=== PATIENT | male | born 1950 | race Caucasian/White ===

== ENCOUNTER 2016-03-26 09:59 | Observation (INO) | payer MEDICARE, OTHER ==
[~2016-03-26] VITALS: Ht 185.4 cm; Wt 103.6 kg
[~2016-03-26 09:59] MED LIST: ASPI81TA3 PO; GLUC-123 PO; LOSA50TA37 PO
[2016-03-26 10:17] VITALS: BP 140/86; PULSE 72; RESP 12; O2SAT 99
[2016-03-26 10:43] LABS: BASOPHILS % (AUTO) 0.2 % (0-3); EOSINOPHILS % (AUTO) 0.3 % (0-5); MONOCYTES % (AUTO) 12.7 % (4-12); Mean Corpuscular Hemoglobin 28.2 pg (27.0-35.0); Mean Corpuscular Volume 83.5 fL (81-100); Platelet Count 207 bil/L (150-400)
--- NOTE | 2016-03-26 11:05 | ED.REPORT ---
HPI-Back Pain 40 and Over Date of Service Mar 26, 2016 ED Provider: Dewayne Golden MD Mr. Wiggins is a 65 y/o man with history of follicular lymphoma and HTN who presents today for severe lower back pain that is mainly on the left that started 3 days ago. He describes it as a cramping. When he moves, it hurts from left to right. It started about 1 week ago but worsened on Thursday morning, and he hasn't been able to get out of bed since then. He goes to the bathroom with help from his and family members. He was brought in today by ambulance. He had treatment on Thursday with with immunoglobulin. He has chills and 5 pound weight loss over the past 1 month. He does not have numbness, tingling, weakness in his leg, bowel or bladder incontinence, or saddle anesthesia. He does not have dysuria, hematuria, melena, or hematochezia. He does not have chest pain, shortness of breath, or abdominal pain. 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 Nursing Notes Stated Complaint: BACK PAIN Chief Complaint: Back Pain or Injury Nursing Notes Reviewed: Yes Allergies: Coded Allergies: No Known Allergies (Verified Allergy, Unknown, 03/26/16) Scheduled Aspirin Chew (Aspirin Chew) 81 Mg Chew 81 MG PO DAILY Gluc/Georges-MSM#2/C/D3/Gianfranco/Born (Ilolawrrgj-Vfqbcmkwktd-DWG Tab) 1 Each Tablet 1 EACH PO BID Losartan Potassium (Losartan Potassium) 50 Mg Tablet 50 MG PO DAILY General Time Seen by MD: 10:54 Chief Complaint Back pain Hx Obtained From: Patient Sudden in Onset?: No Associated with: Denies: Chest pain, Cough Past Medical History Past Medical History lymphoma HTN Social History Alcohol Use: Denies alcohol use Drug Use: Denies drug use Review of Systems Basic Review of Systems Eyes: Vision NL, No discharge ENT: Hearing NL, No pain, No nasal congestion, No pharyngeal pain Constitutional: Reports: Chills, Denies: Fever Respiratory: Denies: Non-productive cough, Shortness of breath Cardiovascular: Denies: Chest pain GI: Denies: Abdominal pain, Diarrhea, Vomiting Male: Denies Dysuria, Denies Hematuria Musculoskeletal: Reports: Back pain, Denies: Neck pain Neurologic: Denies: Bladder dysfunction, Bowel dysfunction, Focal weakness, Numbness, Slurred speech, Vision change Physical Exam Initial Vital Signs Vital Signs (First) Date Time Temp Pulse Resp B/P Pulse Ox O2 Delivery O2 Flow Rate FiO2 03/26/16 10:17 36.0 72 12 140/86 99 Room Air Initial VS: Reviewed Head / Eyes: Atraumatic, Normocephalic ENT: Mucous membranes moist, Conjunctiva normal, No scleral icterus Neck: Supple, Non-tender, Full range of motion Extremities: No swelling, No tenderness Skin: Warm, Dry, No cyanosis Psychiatric: Mood/affect normal, Behavior normal, Normal thought content Respiratory / Chest: Breath sounds NL, Breath sounds = bilat, No respiratory distress, No rales, No rhonchi, No wheezing Cardiovascular: Heart rate NL, Regular rhythm, Heart sounds NL, No gallop, No murmurs, No rubs Abdomen: Soft, Non-tender, No guarding, No rebound, BS normoactive Muscle Spasm / ROM: Positive: Lumbar area spasm Straight Leg Raise: Positive: Strt leg raise + R 50 deg, Negative: Strt leg raise + L 60 deg Lower Extremity / Pelvis / MS: Full range of motion, Neurologic intact, Vascular intact, No edema Interpretation & Diagnostics Interpretation & Diagnostics: CT abdomen and pelvis with contrast: IMPRESSION: 1. No acute process. 2. No explanation for low back pain. Dictated by: Graciela Samayoa M.D. on 03/26/2016 at 13:38 Approved by: Graciela Samayoa M.D. on 03/26/2016 at 13:42 MRI of lumbar spine with and without contrast: IMPRESSION: 1. No acute process. No evidence of epidural hemorrhage nor abscess. No evidence of neoplasm. 2. Multilevel degenerative disc and facet disease, causing multilevel mild canal stenoses, and multilevel foraminal stenoses, worst at L3-L4, L4-L5, and L5-S1 bilaterally. Dictated by: Graciela Samayoa M.D. on 03/26/2016 at 15:02 Approved by: Graciela Samayoa M.D. on 03/26/2016 at 15:09 Lab Results Interpretation Result Diagram: 03/26/16 1039 03/26/16 1039 Test 03/26/16 10:39 03/26/16 14:31 White Blood Count 6.1th/mm3 (3.8-10.1) Red Blood Count 5.21mil/mm3 (4.40-5.80) Hemoglobin 14.7g/dL (13.8-17.2) Hematocrit 43.5% (41.0-50.0) Mean Corpuscular Volume 83.5fL (81-100) Mean Corpuscular Hemoglobin 28.2pg (27.0-35.0) Mean Corpuscular Hemoglobin Concent 33.8% (32.0-37.0) Red Cell Distribution Width 13.6% (12.3-15.4) Platelet Count 207bil/L (150-400) Neutrophils (%) (Auto) 63.0% (40-74) Lymphocytes (%) (Auto) 23.5% (14-46) Monocytes (%) (Auto) 12.7% (4-12) Eosinophils (%) (Auto) 0.3% (0-5) Basophils (%) (Auto) 0.2% (0-3) Sodium Level 136mEq/L (134-144) Potassium Level 3.6mEq/L (3.5-5.2) Chloride Level 96mEq/L (97-108) Carbon Dioxide Level 27mmol/L (18-29) Blood Urea Nitrogen 19mg/dL (8-27) Creatinine 0.63mg/dL (0.76-1.27) Estimat Glomerular Filtration Rate 136mL/min (>59) Glucose Level 97mg/dL (60-99) Calcium Level 9.3mg/dL (8.5-10.1) Total Bilirubin 0.4mg/dL (0.0-1.2) Aspartate Amino Transf (AST/SGOT) 21U/L (0-50) Alanine Aminotransferase (ALT/SGPT) 19U/L (0-44) Alkaline Phosphatase 73U/L (25-160) Total Protein 7.5g/dL (6.4-8.4) Albumin 3.6g/dL (3.4-5.0) Urine Color Yellow (YELLOW) Urine Appearance Clear (CLEAR,HAZY) Urine pH 7.0 (5.0-8.0) Urine Specific [place] 1.015 (1.003-1.035) Urine Protein Negativemg/dL (NEG,TRACE) Urine Glucose (UA) Negativemg/dL (NEGATIVE) Urine Ketones Negativemg/dL (NEGATIVE) Urine Occult Blood Negative (NEGATIVE) Urine Nitrite Negative (NEGATIVE) Urine Bilirubin Negative (NEGATIVE) Urine Urobilinogen Normalmg/dL (NORMAL) Urine Leukocyte Esterase Negative (NEGATIVE) Urine RBC 0-2/hpf (0-2) Urine WBC 0-5/hpf (0-5) Urine Epithelial Cells Occasional/hpf (NONE-MOD) Urine Crystals None seen (NONE SEEN) Urine Bacteria Few/hpf (NONE-FEW) Urine Hyaline Casts None/lpf (NONE) Urine Granular Casts None seen (NONE SEEN) Urine Waxy Casts None seen (NONE SEEN) Urine Red Blood Cell Casts None seen (NONE SEEN) Urine White Blood Cell Casts None seen (NONE SEEN) Urine Mucus Present (None Seen) Urine Trichomonas None seen (NONE SEEN) Urine Yeast None (NONE SEEN) Urinalysis Comment None Urine Culture Reflexed Not indicated Re-Eval/Medical Decision Med Decision/Clinical Course 1. low back pain -Pt is afebrile and he does not have focal neurological deficits on exam -CT abdomen and pelvis with contrast did not show any acute changes -UA is not concerning for UTI or pyleonephritis -MRI of lumbar spine shows multilevel mild canal stenoses, and multilevel foraminal stenoses, worst at L3-L4, L4-L5, and L5-S1 bilaterally. -Pt's pain persisted after 4 dose of IV Dilaudid, 1 dose of PO [place], and 1 dose of PO Flexeril -Pt's is concerned about taking him home if he is unable to ambulate on his own Re-Evaluation/Progress : Patient Status: Mild relief (of pain with IV Dilaudid and PO [place]) Re-Evaluation/Progress Note: Pt's pain relieved after third dose of IV Dilaudid and 1 PO [place]. He is able to sit up half way in bed with assistance but stops secondary to pain with flexion of torso. Consultation #1: Referral / Consult Name: Deni Montaño MD Call Returned at: 11:38 Note: Dr. Abad recommends CT abdomen and pelvis with contrast to look for recurrent disease and if that shows nothing to do an MRI of the lumbar spine. Consultation #2: Referral / Consult Name: Alpesh Sherman MD Consulted With: Hospitalist Drug Safety Coordinator: Accepts admit DDx includes but not limited to: recurrent lymphoma, metastatsis, epidural abscess, spinal mass, pyelonephritis, nephrolithiasis, herniated disck, cauda equina syndrome, osteomyelitis, osteoarthritis Discharge & Departure Impression: Primary Impression: Muscle spasm of back Additional Impressions: Spinal stenosis of lumbar region at multiple levels Intractable pain Disposition: ADMITTED TO HOSPITAL (Discussed with Dr. Sherman at 17:43, admission accepted) Referrals: Delta Mitchell MD (PCP) Other Davian Cuellar MD Attending Statement The patient was seen and examined together with Dr. Greene on 03/26/16 and I agree with the history, exam and plan as outlined in the note above. copies to: Davian Cuellar MD; Delta Mitchell MD, Marissa Rosas DO Mar 26, 2016 11:05 Dewayne Golden MD Mar 27, 2016 06:18 Davian Cuellar MD copies to: Davian Cuellar MD; Delta Mitchell MD, Marissa L DO Mar 26, 2016 11:05 Davian Cuellar MD copies to: Davian Cuellar MD; Delta Mitchell MD, Marissa L DO Mar 26, 2016 11:05
[2016-03-26] MEDS ORDERED: HYDROmorphone 0.5 mg/0.5 mL iSecure Syringe IVPUSH ONE (11:45)
[2016-03-26] MEDS ORDERED: Iohexol 240 mg/mL 10 mL Inj PO ONE (11:45)
[2016-03-26] MEDS ORDERED: Ondansetron 2 mg/mL 2 mL Inj IVPUSH ONE (11:50)
[2016-03-26] MEDS ORDERED: Iohexol 300 mg/mL 30 mL Inj PO ONE (12:05)
[2016-03-26] MEDS: HYDROmorphone 0.5 mg/0.5 mL iSecure Syringe IVPUSH PRN ×4 (12:07→18:34)
--- NOTE | 2016-03-26 13:44 | DRSVH ---
PROCEDURE: CT ABDOMEN AND PELVIS WITH CONTRAST ([id number]) INDICATIONS: new low back pain, hx of lymphoma TECHNIQUE: After the administration of oral and intravenous contrast, 5 mm thick sections acquired from the diap hragms to the symphysis. 5 mm thick coronal and sagittal reformats were performed. For radiation do se reduction, the following was used: automated exposure control, adjustment of mA and/or kV accordi ng to patient size. COMPARISON: [facility], CT, CT NECK CHEST ABD PELVIS W CON, 07/04/2015, 8:34. FINDINGS: Image quality: Excellent. ABDOMEN: Lung bases: Mild right greater than left dependent bibasilar atelectasis. Lung bases are otherwise cl ear. Heart size is normal. Solid organs: Liver and spleen are normal in size and enhancement. Gallbladder is within normal barrientos its. Biliary system is non-dilated. Pancreas enhances normally. No adrenal nodules. Kidneys are n ormal in size and enhancement, without hydronephrosis. Peritoneum and bowel: Stomach, small bowel, and colon loops are normal in caliber and wall thickness . There is diverticulosis of the descending and sigmoid colon. No evidence of acute diverticulitis. N o free fluid or air. Appendix not seen. No evidence of appendicitis. Nodes and vessels: No retroperitoneal or mesenteric adenopathy. No change in 9 mm short axis left p roximal iliac chain lymph node. Aorta and inferior vena cava are normal in caliber. Miscellaneous: No ventral hernias. PELVIS: Genitourinary: Urinary bladder is decompressed. Miscellaneous: No inguinal hernias or adenopathy. Bones: No suspicious bony lesions. Left hip arthroplasty has been performed. No vertebral body comp ression fractures. IMPRESSION: 1. No acute process. 2. No explanation for low back pain. Dictated by: Graciela Samayoa M.D. on 03/26/2016 at 13:38 Approved by: Graciela Samayoa M.D. on 03/26/2016 at 13:42
[2016-03-26] MEDS ORDERED: HYDROcodone-APAP 5-325 mg Tablet PO ONE (14:10)
[2016-03-26 14:47] LABS: APPEARANCE,URINE CLEAR (CLEAR,HAZY); COLOR,URINE YELLOW (YELLOW); OCCULT BLOOD,URINE NEGATIVE (NEGATIVE); UROBILINOGEN,URINE NORMAL (NORMAL)
--- NOTE | 2016-03-26 15:10 | DRSVH ---
PROCEDURE: MRI LUMBAR SPINE WITH AND WITHOUT CONTRAST ([id number]) INDICATIONS: new low back pain, hx of lymphoma TECHNIQUE: Noncontrast sagittal T1 spin echo and T2 fast spin echo, sagittal STIR, axial T1 and T2 fast spin ech o through the lumbar spine. In cases with scoliosis, additional coronal T2 fast spin echo may be per formed. After the administration of contrast, sagittal and axial T1 spin echo with fat saturation th rough the lumbar spine. COMPARISON: [facility], CT, CT ABD PELVIS W CON, 03/26/2016, 13:11. FINDINGS: Image quality: Excellent. Alignment and curvature: There is mild grade 1 retrolisthesis of L2 on L3 and L3 on L4. normal bony alignment. There are 5 lumbar-type vertebral bodies by CT. Marrow: Marrow is of normal overall signal. No acute vertebral body compression fractures. No susp icious marrow enhancement. There is mild reactive signal within the endplates adjacent to the T12-L1 , L1-L2, L2-L3, L3-L4, L4-L5, and L5-S1 intervertebral discs. L1, L2, and L3 hemangiomata are present . Spinal cord: Conus medullaris terminates at the mid L1 level. Visualized spinal cord demonstrates n ormal signal, without suspicious enhancement. Paraspinous soft tissues: No paravertebral masses or abnormal enhancement. L1-L2: Disc desiccation. Mild facet hypertrophy. Mild canal stenosis. Mild bilateral foraminal stenos is. L2-L3: Disc desiccation and diffuse disc bulge. Bilateral facet hypertrophy. Mild canal stenosis. Mil d bilateral foraminal stenosis. Moderate lateral recess stenosis bilaterally. L3-L4: Disc desiccation and diffuse disc bulge. Bilateral facet hypertrophy. Epidural lipomatosis. Mi ld to moderate canal stenosis. Moderate bilateral foraminal stenosis. L4-L5: Disc desiccation and diffuse disc bulge. Bilateral facet and ligamentum flavum hypertrophy. Mi ld canal stenosis. Moderate bilateral foraminal stenosis. L5-S1: Disc height loss and desiccation, as well as diffuse disc bulge/osteophyte. Bilateral facet hy pertrophy. Mild canal stenosis. Moderate bilateral foraminal stenosis. IMPRESSION: 1. No acute process. No evidence of epidural hemorrhage nor abscess. No evidence of neoplasm. 2. Multilevel degenerative disc and facet disease, causing multilevel mild canal stenoses, and multil evel foraminal stenoses, worst at L3-L4, L4-L5, and L5-S1 bilaterally. Dictated by: Graciela Samayoa M.D. on 03/26/2016 at 15:02 Approved by: Graciela Samayoa M.D. on 03/26/2016 at 15:09
[2016-03-26 16:16] VITALS: BP 132/76; PULSE 84; RESP 16; O2SAT 96
[2016-03-26] MEDS ORDERED: Alum-Mag Hydrox-Simeth 30 mL Suspension PO PRN (17:50)
[2016-03-26 17:54] VITALS: BP 140/64; PULSE 80; RESP 16; O2SAT 97
[2016-03-26] MEDS: 0.9% Sodium Chloride 1,000 ML IV SCH (18:22)
[2016-03-26 18:56] VITALS: BP 113/71; PULSE 87; RESP 18; O2SAT 97
[2016-03-26 19:42] VITALS: BP 124/77; PULSE 81; RESP 18; O2SAT 94
--- NOTE | 2016-03-26 19:50 | NUR ---
Admit Note Pt. arrived on floor at 1935. VSS. IV patent and intact. A&0x3. Pt. oriented to room. Pt. rates pain manageable at 2/10 right now. Will continue to monitor.
[2016-03-26] MEDS: HYDROcodone-APAP 5-325 mg Tablet PO PRN (20:44)
--- NOTE | 2016-03-26 22:21 | PCM.HPMED ---
Subjective Date of Service Mar 26, 2016 Primary Provider: Admitting Physician: Alpesh Sherman MD Primary Care Physician: Delta Mitchell MD Attending Physician: Alpesh Sherman MD Chief Complaint: Severe back pain History of Present Illness: 65-year-old male with follicular lymphoma, hypertension p/w intractable back pain and muscle spasm. pt was USOH until 1week ago, pt started having back spasm, difficulty of ambulation, pain continued until this AM, pt was so severe and pt noticed spasm badly, unable to walk decided to come to hospital, pain didn't radiate to legs, denied weakness, numbness on legs, no saddle anesthesia, no fecal incontinence, urinary retention. pt doesn't have chronic back pain, not taking pain med at baseline. ROS: Patient denies fever, chills, nausea, vomiting, abdominal pain, cough, sputum, constipation, diarrhea, sick contacts, recent travel in ED, VSS, pt received dilaudid, norco, zofran. Review of Systems: Pertinent positives as noted in history of present illness. All other systems were reviewed and are negative Allergies Coded Allergies: No Known Allergies (Verified Allergy, Unknown, 03/26/16) Home Medications losartan 50 mg PMH Described in history of present illness above Surgical History Hip surgery Shoulder surgery Bowel surgery as a child Family History No history of CAD Social History Hx Alcohol Use: No Hx Substance Use: No Hx Tobacco Use: No Additional Information lives with and daughter Exam Vital Signs Vital Sign - Last Date Time Temp Pulse Resp B/P Pulse Ox O2 Delivery O2 Flow Rate FiO2 03/26/16 17:54 36.7 80 16 140/64 97 Room Air Exam NAD, comfortably laying down on the bed no JVD, MMM, no LAD RRR, nl s1, s2 no mrg CTAB, no w,c S,ND,NT,normoactive BS+ warm, no edema, pulses 2/2 neuro exam: motor 5/5 throughout pulses 2/2 DP limited ROM of lumbar spines due to pain, Lab and Diagnostics Result Diagram: 03/26/16 1039 03/26/16 1039 X-Rays, CTs and MRIs PROCEDURE: MRI LUMBAR SPINE WITH AND WITHOUT CONTRAST ([id number]) INDICATIONS: new low back pain, hx of lymphoma TECHNIQUE: Noncontrast sagittal T1 spin echo and T2 fast spin echo, sagittal STIR, axial T1 and T2 fast spin echo through the lumbar spine. In cases with scoliosis, additional coronal T2 fast spin echo may be performed. After the administration of contrast, sagittal and axial T1 spin echo with fat saturation through the lumbar spine. COMPARISON: [facility], CT, CT ABD PELVIS W CON, 03/26/2016, 13:11. FINDINGS: Image quality: Excellent. Alignment and curvature: There is mild grade 1 retrolisthesis of L2 on L3 and L3 on L4. normal bony alignment. There are 5 lumbar-type vertebral bodies by CT. Marrow: Marrow is of normal overall signal. No acute vertebral body compression fractures. No suspicious marrow enhancement. There is mild reactive signal within the endplates adjacent to the T12-L1, L1-L2, L2-L3, L3-L4 , L4-L5, and L5-S1 intervertebral discs. L1, L2, and L3 hemangiomata are present. Spinal cord: Conus medullaris terminates at the mid L1 level. Visualized spinal cord demonstrates normal signal, without suspicious enhancement. Paraspinous soft tissues: No paravertebral masses or abnormal enhancement. L1-L2: Disc desiccation. Mild facet hypertrophy. Mild canal stenosis. Mild bilateral foraminal stenosis. L2-L3: Disc desiccation and diffuse disc bulge. Bilateral facet hypertrophy. Mild canal stenosis. Mild bilateral foraminal stenosis. Moderate lateral recess stenosis bilaterally. L3-L4: Disc desiccation and diffuse disc bulge. Bilateral facet hypertrophy. Epidural lipomatosis. Mild to moderate canal stenosis. Moderate bilateral foraminal stenosis. L4-L5: Disc desiccation and diffuse disc bulge. Bilateral facet and ligamentum flavum hypertrophy. Mild canal stenosis. Moderate bilateral foraminal stenosis. L5-S1: Disc height loss and desiccation, as well as diffuse disc bulge/ osteophyte. Bilateral facet hypertrophy. Mild canal stenosis. Moderate bilateral foraminal stenosis. IMPRESSION: 1. No acute process. No evidence of epidural hemorrhage nor abscess. No evidence of neoplasm. 2. Multilevel degenerative disc and facet disease, causing multilevel mild canal stenoses, and multilevel foraminal stenoses, worst at L3-L4, L4-L5, and L5 -S1 bilaterally. Dictated by: Graciela Samayoa M.D. on 03/26/2016 at 15:02 Approved by: Graciela Samayoa M.D. on 03/26/2016 at 15:09 PROCEDURE: CT ABDOMEN AND PELVIS WITH CONTRAST ([id number]) INDICATIONS: new low back pain, hx of lymphoma TECHNIQUE: After the administration of oral and intravenous contrast, 5 mm thick sections acquired from the diaphragms to the symphysis. 5 mm thick coronal and sagittal reformats were performed. For radiation dose reduction, the following was used : automated exposure control, adjustment of mA and/or kV according to patient size. COMPARISON: [facility], CT, CT NECK CHEST ABD PELVIS W CON, 2015, 8:34. FINDINGS: Image quality: Excellent. ABDOMEN: Lung bases: Mild right greater than left dependent bibasilar atelectasis. Lung bases are otherwise clear. Heart size is normal. Solid organs: Liver and spleen are normal in size and enhancement. Gallbladder is within normal limits. Biliary system is non-dilated. Pancreas enhances normally. No adrenal nodules. Kidneys are normal in size and enhancement, without hydronephrosis. Peritoneum and bowel: Stomach, small bowel, and colon loops are normal in caliber and wall thickness. There is diverticulosis of the descending and sigmoid colon. No evidence of acute diverticulitis. No free fluid or air. Appendix not seen. No evidence of appendicitis. Nodes and vessels: No retroperitoneal or mesenteric adenopathy. No change in 9 mm short axis left proximal iliac chain lymph node. Aorta and inferior vena cava are normal in caliber. Miscellaneous: No ventral hernias. PELVIS: Genitourinary: Urinary bladder is decompressed. Miscellaneous: No inguinal hernias or adenopathy. Bones: No suspicious bony lesions. Left hip arthroplasty has been performed. No vertebral body compression fractures. IMPRESSION: 1. No acute process. 2. No explanation for low back pain. Dictated by: Graciela Samayoa M.D. on 03/26/2016 at 13:38 Approved by: Graciela Samayoa M.D. on 03/26/2016 at 13:42 Assessment & Plan Acute, active Acute muscular spasm in setting of severe lumbar degenerative joint disease, causing multilevel mild canal stenoses, and multilevel foraminal stenoses, worst at L3-L4, L4-L5, and L5-S1 bilaterally.POA, CT abd MRI or L spines ruled out mass, abscess, cord compression, -admitted for mainly pain control -continue Flexeril 10 mg 3 times a day, norco 5-325 q4 prn, naproxen 500mg bid with ppi 20mg qd for short term. -PT ordered, chronic, stable HTN, resume BP med after med rec Follicular lymphoma, follow-up with Dr. Abad OP Patient is admitted under observation status with expectation that she will be discharged within 24-48 hours, dvt prophylaxis LMWH Full code diet: general Time spent 65min Alpesh Sherman MD Mar 26, 2016 18:59
[2016-03-27 00:23] VITALS: BP 153/85; PULSE 73; RESP 16; O2SAT 95
[2016-03-27] MEDS: 0.9% Sodium Chloride 1,000 ML IV SCH ×3 (03:52→23:48)
[2016-03-27 03:53] VITALS: BP 141/80; PULSE 80; RESP 18; O2SAT 94
[2016-03-27] MEDS: HYDROcodone-APAP 5-325 mg Tablet PO PRN ×3 (03:57→14:30)
[2016-03-27] MEDS: Pantoprazole 20 mg ER24 Tablet PO SCH (07:15)
[2016-03-27] MEDS ORDERED: Influenza (Adult) Vaccine 0.5 mL Syringe IM ONE (08:30)
[2016-03-27] MEDS ORDERED: Potassium Chloride 20 mEq SR Tablet PO ONE (08:55)
[2016-03-27 10:58] VITALS: BP 103/72; PULSE 101; RESP 18; O2SAT 95
--- NOTE | 2016-03-27 14:23 | NUR ---
Social Work Initial Assessment: SW met with patient at bedside to discuss discharge plan. Patient is a 65 year old male admitted under observation status on 03/26/16 for lumbar spasms, lumbar stenosis. Patient payer as Medicare. Patient has no assisted disability nor VA benefits. Patient PCP as MD Mitchell. Patient states residing in [facility] in a 2 story home with 6 -7 steps outside of home. Patient states residing with Aixa, who to provide transport and assist with needs. Patient pharmacy of choice as [facility]. Patient has no HHC, SNF, or DME history. Patient states prior to admit he was independent with needs. Patient states he drives independently. Patient states currently in the process of AD at this time. SW to assess therapy notes to ensure home discharge recommendations. Patient states not having any identified discharge needs this time. SW to follow. Home with via POV, pending clinical course and therapy eval. SW to follow. Rob COLEMAN Addendum: 03/27/16 at 1427 by LOREN MARIE Amended: Links added. Addendum: 03/27/16 at 1441 by LOREN MARIE Therapy notes reviewed and notation for recommendations for HHC and walker. Patient states being in agreement to HHC services. Patient states having no HHC preference. Patient choice as [facility]. Choice list offered and declined. Patient obtained order for walker. Patient states to obtain walker independently and walker order no longer needed. SW completed face to face and provided to C rep Ankur. Access given [facility] to follow for HHC needs. SW to follow. PLAN: Home with and HHC via [facility] (Access provided and F2F provided). Walker to be obtained independently. SW to follow. Ailyn COLEMAN
[2016-03-27 15:00] VITALS: BP 113/68; PULSE 88; O2SAT 96
--- NOTE | 2016-03-27 16:38 | NUR ---
Case Management: GHISLAINE explained to patient, and other family members at 1620, all questions answered. Signed original in chart, copy given to patient. "How Medicare Covers Self-Administered Drugs Given in Hospital Outpatient Settings" also provided to patient. Alice Antunez RN
--- NOTE | 2016-03-27 16:58 | NUR ---
Pain P: Pt rating pain from 2/10 to 6/10 today. Previous 3 days pain had been 8/10-10/10 making pt immobile. I: Flexeril given TID scheduled. [place] available PRN, given once today. Naproxen scheduled BID. E: Pt has increased activity and is walking laps around unit using FWW. He reports pain 2/10 at this time and states he has decreased muscle spasms.
[2016-03-27 19:34] VITALS: BP 118/73; PULSE 108; O2SAT 95
--- NOTE | 2016-03-27 21:07 | NUR ---
Off floor for CT Pt. left floor at [address] via wheelchair. Addendum: 03/28/16 at 0520 by IVETT NERI RN Written on wrong pt.
--- NOTE | 2016-03-28 00:31 | PCM.PNMED ---
Subjective Date of Service Mar 28, 2016 Subjective Patient's back pain is still quite severe but better than it was yesterday. Exam Vital Signs Vital Sign - Last Date Time Temp Pulse Resp B/P Pulse Ox O2 Delivery O2 Flow Rate FiO2 03/27/16 19:34 36.9 108 118/73 95 Room Air 03/27/16 10:58 18 Intake and Output 03/27/16 03/27/16 03/28/16 Cumulative From/Thru 15:00 23:00 07:00 03/26/16 20:49 - 03/27/16 19:16 Intake Total 1922 ml 3555 ml Output Total 700 ml 1095 ml Balance 1222 ml 2460 ml Intake Oral 1172 ml 1722 ml IV Total 750 ml 1833 ml Output Urine Total 700 ml 1095 ml # Bowel Movements 0 0 Exam General: Patient's range of motion is severely limited by back pain. However he is resting comfortably supine in bed with head elevated approximately 20. HEENT: Head is atraumatic and normocephalic. Eyes: Pupils are equally round and reactive to light and accommodation. Extraocular muscles are intact. Sclera are white, anicteric. Subconjunctival mucosa is pink. Ears and nose are unremarkable. Oropharynx: There is no mucosal lesions, there is no thrush, there is no pharyngitis. Neck: Is supple, there are no nodes, or masses or tenderness. Chest: Is clear to auscultation and percussion. There are no rales, rhonchi, wheezes or rubs. Heart: Rate, rhythm is regular. There is no murmur, rub or gallop. Abdomen: Good bowel sounds are present. Abdomen is soft, nontender, no organomegaly or masses were appreciated. Extremities: Are symmetrical and well perfused. There is no edema, there is no cellulitis, no rash. Neurologic: There are no focal neurological deficits. Cranial nerves II through XII are intact. There are no sensory or motor deficits. Psychiatric: Patients mood is calm and shows no sign of agitation. Genital: Deferred Rectal: Deferred Lab and Diagnostics Result Diagram: 03/26/16 1039 03/26/16 1039 X-Rays, CTs and MRIs PROCEDURE: MRI LUMBAR SPINE WITH AND WITHOUT CONTRAST ([id number]) INDICATIONS: new low back pain, hx of lymphoma TECHNIQUE: Noncontrast sagittal T1 spin echo and T2 fast spin echo, sagittal STIR, axial T1 and T2 fast spin echo through the lumbar spine. In cases with scoliosis, additional coronal T2 fast spin echo may be performed. After the administration of contrast, sagittal and axial T1 spin echo with fat saturation through the lumbar spine. COMPARISON: [facility], CT, CT ABD PELVIS W CON, 03/26/2016, 13:11. FINDINGS: Image quality: Excellent. Alignment and curvature: There is mild grade 1 retrolisthesis of L2 on L3 and L3 on L4. normal bony alignment. There are 5 lumbar-type vertebral bodies by CT. Marrow: Marrow is of normal overall signal. No acute vertebral body compression fractures. No suspicious marrow enhancement. There is mild reactive signal within the endplates adjacent to the T12-L1, L1-L2, L2-L3, L3-L4 , L4-L5, and L5-S1 intervertebral discs. L1, L2, and L3 hemangiomata are present. Spinal cord: Conus medullaris terminates at the mid L1 level. Visualized spinal cord demonstrates normal signal, without suspicious enhancement. Paraspinous soft tissues: No paravertebral masses or abnormal enhancement. L1-L2: Disc desiccation. Mild facet hypertrophy. Mild canal stenosis. Mild bilateral foraminal stenosis. L2-L3: Disc desiccation and diffuse disc bulge. Bilateral facet hypertrophy. Mild canal stenosis. Mild bilateral foraminal stenosis. Moderate lateral recess stenosis bilaterally. L3-L4: Disc desiccation and diffuse disc bulge. Bilateral facet hypertrophy. Epidural lipomatosis. Mild to moderate canal stenosis. Moderate bilateral foraminal stenosis. L4-L5: Disc desiccation and diffuse disc bulge. Bilateral facet and ligamentum flavum hypertrophy. Mild canal stenosis. Moderate bilateral foraminal stenosis. L5-S1: Disc height loss and desiccation, as well as diffuse disc bulge/ osteophyte. Bilateral facet hypertrophy. Mild canal stenosis. Moderate bilateral foraminal stenosis. IMPRESSION: 1. No acute process. No evidence of epidural hemorrhage nor abscess. No evidence of neoplasm. 2. Multilevel degenerative disc and facet disease, causing multilevel mild canal stenoses, and multilevel foraminal stenoses, worst at L3-L4, L4-L5, and L5 -S1 bilaterally. Dictated by: Graciela Samayoa M.D. on 03/26/2016 at 15:02 Approved by: Graciela Samayoa M.D. on 03/26/2016 at 15:09 PROCEDURE: CT ABDOMEN AND PELVIS WITH CONTRAST ([id number]) INDICATIONS: new low back pain, hx of lymphoma TECHNIQUE: After the administration of oral and intravenous contrast, 5 mm thick sections acquired from the diaphragms to the symphysis. 5 mm thick coronal and sagittal reformats were performed. For radiation dose reduction, the following was used : automated exposure control, adjustment of mA and/or kV according to patient size. COMPARISON: [facility], CT, CT NECK CHEST ABD PELVIS W CON, 2015, 8:34. FINDINGS: Image quality: Excellent. ABDOMEN: Lung bases: Mild right greater than left dependent bibasilar atelectasis. Lung bases are otherwise clear. Heart size is normal. Solid organs: Liver and spleen are normal in size and enhancement. Gallbladder is within normal limits. Biliary system is non-dilated. Pancreas enhances normally. No adrenal nodules. Kidneys are normal in size and enhancement, without hydronephrosis. Peritoneum and bowel: Stomach, small bowel, and colon loops are normal in caliber and wall thickness. There is diverticulosis of the descending and sigmoid colon. No evidence of acute diverticulitis. No free fluid or air. Appendix not seen. No evidence of appendicitis. Nodes and vessels: No retroperitoneal or mesenteric adenopathy. No change in 9 mm short axis left proximal iliac chain lymph node. Aorta and inferior vena cava are normal in caliber. Miscellaneous: No ventral hernias. PELVIS: Genitourinary: Urinary bladder is decompressed. Miscellaneous: No inguinal hernias or adenopathy. Bones: No suspicious bony lesions. Left hip arthroplasty has been performed. No vertebral body compression fractures. IMPRESSION: 1. No acute process. 2. No explanation for low back pain. Dictated by: Graciela Samayoa M.D. on 03/26/2016 at 13:38 Approved by: Graciela Samayoa M.D. on 03/26/2016 at 13:42 Assessment & Plan 65-year-old male with follicular lymphoma, hypertension p/w intractable back pain and muscle spasm.the patient was in his usual state of health until 1week ago, then he started having back spasm, difficulty of ambulation. The pain continued until the AM of admission. The pain was so severe and patient noticed severe spasms. The patient was unable to walk and decided to come to [facility]. His pain didn't radiate to legs, and he denied weakness , no numbness on legs, no saddle anesthesia, no fecal incontinence, urinary retention. The patient doesn't have chronic back pain, and is not taking pain med at baseline. Patient was brought in under observation to the hospital service for further evaluation and treatment. Acute, active problems: Acute muscular spasm in setting of severe lumbar degenerative joint disease, causing multilevel mild canal stenoses, and multilevel foraminal stenoses, worst at L3-L4, L4-L5, and L5-S1 bilaterally. Present on admission, Lumber spine MRI is positive for mild to moderate spinal stenosis -Patient admitted for pain control -Will continue Flexeril 10 mg 3 times a day, norco 5-325 q4 prn, naproxen 500mg bid with ppi 20mg qd for short term. -PT ordered, -Recommend neurosurgical consultation and/or orthopedic spine consultation as an outpatient. Chronic, stable problems: -HTN, resume BP med after med rec -Follicular lymphoma, follow-up with Dr. Abad OP Disposition: Patient was admitted under observation status with expectation that she will be discharged within 24-48 hours, Dr. Murray following a.m. Pain Evaluation: Adequate Pain Control GI Prophylaxis: Proton Pump Inhibitor VTE Prophylaxis: Sub-Q Enoxaparin VTE Mechanical Devices: Intermittant Pneumatic CD Resuscitation Status: CPR: Attempt Resuscitation Reymundo Tejeda MD Mar 28, 2016 00:31
--- NOTE | 2016-03-28 05:22 | NUR ---
Pain Pt. states flexril and ibuprofen PO is effective for pain. Pt. was ambulating in [place] earlier today.
[2016-03-28] MEDS: HYDROcodone-APAP 5-325 mg Tablet PO PRN ×2 (05:34→14:28)
--- NOTE | 2016-03-28 07:49 | PCM.DIMED ---
Discharge Instructions Date of Service Mar 28, 2016 Dates of Hospitalization Mar 26, 2016 at 17:43 Diet No restrictions Activity No restrictions Call your provider Fever or Chills, Other (Worsening pain) Patient Instructions Follow-up with PCP in: 1 week Denise Murray MD Mar 28, 2016 07:48
[2016-03-28] MEDS ORDERED: NAPR250T PO (07:52)
[2016-03-28] MEDS ORDERED: PANT20TA2 PO (07:52)
[2016-03-28] MEDS ORDERED: CYCL10TA9 PO ×2 (07:52→10:43)
[2016-03-28] MEDS ORDERED: HYDR-4003 PO (07:52)
--- NOTE | 2016-03-28 08:13 | PCM.DC.MED ---
Discharge Summary Date of Service Mar 28, 2016 Dates of Hospitalization Date of Hospital Admission Mar 26, 2016 at 17:43 Date of Discharge: Mar 28, 2016 Providers: Admitting Physician: Alpesh Sherman MD Primary Care Physician: Delta Mitchell MD Attending Physician: Alpesh Sherman MD Diagnosis at Time of Discharge Diagnosis at Time of Discharge Low back pain Procedures XRay, CTs & MRIs PROCEDURE: MRI LUMBAR SPINE WITH AND WITHOUT CONTRAST ([id number]) INDICATIONS: new low back pain, hx of lymphoma TECHNIQUE: Noncontrast sagittal T1 spin echo and T2 fast spin echo, sagittal STIR, axial T1 and T2 fast spin echo through the lumbar spine. In cases with scoliosis, additional coronal T2 fast spin echo may be performed. After the administration of contrast, sagittal and axial T1 spin echo with fat saturation through the lumbar spine. COMPARISON: [facility], CT, CT ABD PELVIS W CON, 03/26/2016, 13:11. FINDINGS: Image quality: Excellent. Alignment and curvature: There is mild grade 1 retrolisthesis of L2 on L3 and L3 on L4. normal bony alignment. There are 5 lumbar-type vertebral bodies by CT. Marrow: Marrow is of normal overall signal. No acute vertebral body compression fractures. No suspicious marrow enhancement. There is mild reactive signal within the endplates adjacent to the T12-L1, L1-L2, L2-L3, L3-L4 , L4-L5, and L5-S1 intervertebral discs. L1, L2, and L3 hemangiomata are present. Spinal cord: Conus medullaris terminates at the mid L1 level. Visualized spinal cord demonstrates normal signal, without suspicious enhancement. Paraspinous soft tissues: No paravertebral masses or abnormal enhancement. L1-L2: Disc desiccation. Mild facet hypertrophy. Mild canal stenosis. Mild bilateral foraminal stenosis. L2-L3: Disc desiccation and diffuse disc bulge. Bilateral facet hypertrophy. Mild canal stenosis. Mild bilateral foraminal stenosis. Moderate lateral recess stenosis bilaterally. L3-L4: Disc desiccation and diffuse disc bulge. Bilateral facet hypertrophy. Epidural lipomatosis. Mild to moderate canal stenosis. Moderate bilateral foraminal stenosis. L4-L5: Disc desiccation and diffuse disc bulge. Bilateral facet and ligamentum flavum hypertrophy. Mild canal stenosis. Moderate bilateral foraminal stenosis. L5-S1: Disc height loss and desiccation, as well as diffuse disc bulge/ osteophyte. Bilateral facet hypertrophy. Mild canal stenosis. Moderate bilateral foraminal stenosis. IMPRESSION: 1. No acute process. No evidence of epidural hemorrhage nor abscess. No evidence of neoplasm. 2. Multilevel degenerative disc and facet disease, causing multilevel mild canal stenoses, and multilevel foraminal stenoses, worst at L3-L4, L4-L5, and L5 -S1 bilaterally. Dictated by: Graciela Samayoa M.D. on 03/26/2016 at 15:02 Approved by: Graciela Samayoa M.D. on 03/26/2016 at 15:09 PROCEDURE: CT ABDOMEN AND PELVIS WITH CONTRAST ([id number]) INDICATIONS: new low back pain, hx of lymphoma TECHNIQUE: After the administration of oral and intravenous contrast, 5 mm thick sections acquired from the diaphragms to the symphysis. 5 mm thick coronal and sagittal reformats were performed. For radiation dose reduction, the following was used : automated exposure control, adjustment of mA and/or kV according to patient size. COMPARISON: [facility], CT, CT NECK CHEST ABD PELVIS W CON, 2015, 8:34. FINDINGS: Image quality: Excellent. ABDOMEN: Lung bases: Mild right greater than left dependent bibasilar atelectasis. Lung bases are otherwise clear. Heart size is normal. Solid organs: Liver and spleen are normal in size and enhancement. Gallbladder is within normal limits. Biliary system is non-dilated. Pancreas enhances normally. No adrenal nodules. Kidneys are normal in size and enhancement, without hydronephrosis. Peritoneum and bowel: Stomach, small bowel, and colon loops are normal in caliber and wall thickness. There is diverticulosis of the descending and sigmoid colon. No evidence of acute diverticulitis. No free fluid or air. Appendix not seen. No evidence of appendicitis. Nodes and vessels: No retroperitoneal or mesenteric adenopathy. No change in 9 mm short axis left proximal iliac chain lymph node. Aorta and inferior vena cava are normal in caliber. Miscellaneous: No ventral hernias. PELVIS: Genitourinary: Urinary bladder is decompressed. Miscellaneous: No inguinal hernias or adenopathy. Bones: No suspicious bony lesions. Left hip arthroplasty has been performed. No vertebral body compression fractures. IMPRESSION: 1. No acute process. 2. No explanation for low back pain. Dictated by: Graciela Samayoa M.D. on 03/26/2016 at 13:38 Approved by: Graciela Samayoa M.D. on 03/26/2016 at 13:42 Brief History 65-year-old male with follicular lymphoma, hypertension p/w intractable back pain and muscle spasm. pt was USOH until 1week ago, pt started having back spasm, difficulty of ambulation, pain continued until this AM, pt was so severe and pt noticed spasm badly, unable to walk decided to come to hospital, pain didn't radiate to legs, denied weakness, numbness on legs, no saddle anesthesia, no fecal incontinence, urinary retention. pt doesn't have chronic back pain, not taking pain med at baseline. ROS: Patient denies fever, chills, nausea, vomiting, abdominal pain, cough, sputum, constipation, diarrhea, sick contacts, recent travel in ED, V[place], pt received dilaudid, norco, zofran. Hospital Course 65-year-old male with follicular lymphoma, hypertension p/w intractable back pain and muscle spasm.the patient was in his usual state of health until 1week ago, then he started having back spasm, difficulty of ambulation. The pain continued until the AM of admission. The pain was so severe and patient noticed severe spasms. The patient was unable to walk and decided to come to [facility]. His pain didn't radiate to legs, and he denied weakness , no numbness on legs, no saddle anesthesia, no fecal incontinence, urinary retention. The patient doesn't have chronic back pain, and is not taking pain med at baseline. Patient was brought in under observation to the hospital service for further evaluation and treatment. Acute, active problems: Acute muscular spasm in setting of severe lumbar degenerative joint disease, causing multilevel mild canal stenoses, and multilevel foraminal stenoses, worst at L3-L4, L4-L5, and L5-S1 bilaterally. Present on admission, Lumber spine MRI is positive for mild to moderate spinal stenosis -Patient admitted for pain control -Good pain control on Flexeril 10 mg 3 times a day, norco 5-325 q4 prn, naproxen 500mg bid with ppi 20mg qd for short term. -Recommend neurosurgical consultation and/or orthopedic spine consultation as an outpatient. Chronic, stable problems: -HTN, resume BP med after med rec -Follicular lymphoma, follow-up with Dr. Abad OP Exam Vital Signs (Last) Date Time Temp Pulse Resp B/P Pulse Ox O2 Delivery O2 Flow Rate FiO2 03/27/16 19:34 36.9 108 118/73 95 Room Air 03/27/16 10:58 18 Exam Resting comfortably in bed, wanting to go home. Heart: Reg Lungs: Clear Abd: soft, nontender Neuro: moves all extrem well Test 03/26/16 10:39 03/26/16 14:31 03/27/16 00:15 White Blood Count 6.1th/mm3 (3.8-10.1) Red Blood Count 5.21mil/mm3 (4.40-5.80) Hemoglobin 14.7g/dL (13.8-17.2) Hematocrit 43.5% (41.0-50.0) Mean Corpuscular Volume 83.5fL (81-100) Mean Corpuscular Hemoglobin 28.2pg (27.0-35.0) Mean Corpuscular Hemoglobin Concent 33.8% (32.0-37.0) Red Cell Distribution Width 13.6% (12.3-15.4) Platelet Count 207bil/L (150-400) Neutrophils (%) (Auto) 63.0% (40-74) Lymphocytes (%) (Auto) 23.5% (14-46) Monocytes (%) (Auto) 12.7% (4-12) Eosinophils (%) (Auto) 0.3% (0-5) Basophils (%) (Auto) 0.2% (0-3) Sodium Level 136mEq/L (134-144) Potassium Level 3.6mEq/L (3.5-5.2) Chloride Level 96mEq/L (97-108) Carbon Dioxide Level 27mmol/L (18-29) Blood Urea Nitrogen 19mg/dL (8-27) Creatinine 0.63mg/dL (0.76-1.27) Estimat Glomerular Filtration Rate 136mL/min (>59) Glucose Level 97mg/dL (60-99) Calcium Level 9.3mg/dL (8.5-10.1) Total Bilirubin 0.4mg/dL (0.0-1.2) Aspartate Amino Transf (AST/SGOT) 21U/L (0-50) Alanine Aminotransferase (ALT/SGPT) 19U/L (0-44) Alkaline Phosphatase 73U/L (25-160) Total Protein 7.5g/dL (6.4-8.4) Albumin 3.6g/dL (3.4-5.0) Urine Color Yellow (YELLOW) Urine Appearance Clear (CLEAR,HAZY) Urine pH 7.0 (5.0-8.0) Urine Specific [place] 1.015 (1.003-1.035) Urine Protein Negativemg/dL (NEG,TRACE) Urine Glucose (UA) Negativemg/dL (NEGATIVE) Urine Ketones Negativemg/dL (NEGATIVE) Urine Occult Blood Negative (NEGATIVE) Urine Nitrite Negative (NEGATIVE) Urine Bilirubin Negative (NEGATIVE) Urine Urobilinogen Normalmg/dL (NORMAL) Urine Leukocyte Esterase Negative (NEGATIVE) Urine RBC 0-2/hpf (0-2) Urine WBC 0-5/hpf (0-5) Urine Epithelial Cells Occasional/hpf (NONE-MOD) Urine Crystals None seen (NONE SEEN) Urine Bacteria Few/hpf (NONE-FEW) Urine Hyaline Casts None/lpf (NONE) Urine Granular Casts None seen (NONE SEEN) Urine Waxy Casts None seen (NONE SEEN) Urine Red Blood Cell Casts None seen (NONE SEEN) Urine White Blood Cell Casts None seen (NONE SEEN) Urine Mucus Present (None Seen) Urine Trichomonas None seen (NONE SEEN) Urine Yeast None (NONE SEEN) Urinalysis Comment None Urine Culture Reflexed Not indicated Hold Urine Received (Received) Discharge Medications Discharge Medications Aspirin Chew (Aspirin Chew) 81 Mg Chew 81 MG PO DAILY (Reported) Gluc/Georges-MSM#2/C/D3/Gianfranco/Born (Cythresvub-Xgzgcvoemul-QVQ Tab) 1 Each Tablet 1 EACH PO BID (Reported) Losartan Potassium (Losartan Potassium) 50 Mg Tablet 50 MG PO DAILY (Reported) Followup Plan Disposition: Home Follow-up plan PCP in one week. Discharge Diet: No restrictions Discharge Activity: No restrictions Follow-up with PCP in: 1 week copies to: Delta Mitchell MD, Peggy E MD Mar 28, 2016 08:13
[2016-03-28 08:45] VITALS: BP 132/80; PULSE 80; RESP 16; O2SAT 96
[2016-03-28] MEDS: Pantoprazole 20 mg ER24 Tablet PO SCH (08:53)
[2016-03-28] MEDS: 0.9% Sodium Chloride 1,000 ML IV SCH (09:36)
--- NOTE | 2016-03-28 15:32 | NUR ---
DISCHARGE Patient discharged at 1430, left with who will drive him home. Patient denies chest pain, nausea, and shortness of breath. Medications reviewed, new Rx's provided, and patient verbalizes understanding. Follow up appointments with PCP and spinal surgery numbers provided. MD in to assess patient's right ankle per patient's request.
[2016-05-19] MEDS ORDERED: LACT1CAP13 PO (08:51)
[2016-05-19] MEDS ORDERED: SENN-133 PO (08:51)
[2016-06-13] MEDS ORDERED: ASPI-973 PO (17:42)
[2016-06-13] MEDS ORDERED: LACT1CAP13 PO (17:42)
[2016-06-13] MEDS ORDERED: HYDR12.55 PO (17:42)
[2016-06-13] MEDS ORDERED: OXYC5TAB72 PO (17:42)
== END 2016-03-28 14:44 | disposition home or self-care (01) ==
LOC: EDBD 09:59 → SED 09:59 → OSC 17:43
PROVIDERS: ADMIT Internal Medicine; ATTEND Internal Medicine
DX: M62.830 Muscle spasm of back (principal); M54.5 Low back pain; M47.896 Other spondylosis, lumbar region; M48.06 Spinal stenosis, lumbar region; C82.90 Follicular lymphoma, unspecified, unspecified site; I10 Essential (primary) hypertension; Z79.82 Long term (current) use of aspirin; Z23 Encounter for immunization
CPT/HCPCS: 36415; 72158; 74177; 80053; 81000; 85025; 90471; 96374; 96375; 96376; 97162; 99285; A9585; G0378; G8978; G8979; J1170; J1650; J2405; J7030; Q2039; Q9967

== ENCOUNTER 2016-04-25 14:45 | Inpatient (IN) | payer MEDICARE, OTHER ==
[~2016-04-25] VITALS: Ht 182.9 cm; Wt 102.1 kg
[~2016-04-25 14:45] MED LIST changes: +CYCL10TA9 PO; +HYDR-4003 PO; +NAPR250T PO; +PANT20TA2 PO
[2016-04-25 14:49] VITALS: BP 133/85; PULSE 120; RESP 15; O2SAT 97
[2016-04-25] MEDS ORDERED: Ondansetron 2 mg/mL 2 mL Inj ONE (16:19)
[2016-04-25] MEDS ORDERED: HYDROmorphone 0.5 mg/0.5 mL iSecure Syringe ONE (16:19)
[2016-04-25] MEDS ORDERED: Ondansetron 2 mg/mL 2 mL Inj IVPUSH ONE (16:25)
[2016-04-25] MEDS: HYDROmorphone 0.5 mg/0.5 mL iSecure Syringe IVPUSH PRN ×4 (16:33→23:17)
--- NOTE | 2016-04-25 17:25 | ED.REPORT ---
HPI-Back Pain 40 and Over Date of Service Apr 25, 2016 ED Provider: Pola Odonnell MD The patient is a 65 year old male w/ a hx of follicular lymphoma in remission and HTN who presents to the ED `due to extreme diffuse lower back pain. About a month ago he thought he threw his back out and pain became so severe he was admitted to [facility] on 03/26/16. His MRI at the time did not reveal any acute findings. He returned home two days later with slightly reduced pain. When he went home he wasn't feeling that much better. Since discharge, his pain has returned and increased in severity.. He started going downhill fairly quickly after getting released from the hospital. Pt can now barely walk and needs assistance to get out of bed. Pain does not radiate, no change in bowel or bladder movements, dysuria. Pt's family noticed a subjective fever 2 times in the past 2 weeks, diaphoresis at night a few times a week. He denies any infections or surgery in the past 6-8 weeks. Pt had a hip replacement a few years ago. He is having a hard time walking due knee and back pain. His lymphoma has been in remission for 6 years with no evidence of recurrent disease. Nursing Notes Stated Complaint: INTERVERTEBRAL DISC PUSS POCKET Chief Complaint: General Complaint Nursing Notes Reviewed: Yes (Deep Glint, Visionarity not reconciled) Allergies: Coded Allergies: No Known Allergies (Verified Allergy, Unknown, 04/25/16) Scheduled Ascorbic Acid (Vitamin C) 1,000 Mg Tab.chew 1,000 MG PO DAILY Hydrochlorothiazide (Hydrochlorothiazide) 25 Mg Tablet 25 MG PO DAILY Ibuprofen (Ibuprofen) 400 Mg Tablet 400 MG PO BIDWM Scheduled PRN Acyclovir (Acyclovir) 800 Mg Tab 800 MG PO TID PRN PRN cold sores/herpes outbreak General Time Seen by MD: 17:24 Chief Complaint Back pain Hx Obtained From: Patient Arrived By: Walk-in Sudden in Onset?: Yes Onset Occurred: Yesterday Symptom Duration: Since onset Location: : Spinal lumbar area Radiation: : Does not radiate Severity: Current: Moderate Past Medical History Past Medical History lymphoma HTN Social History Alcohol Use: Denies alcohol use Drug Use: Denies drug use Review of Systems Constitutional: Reports: Fever Male: Denies Dysuria Musculoskeletal: Reports: Back pain Complete sys rev & neg: except as marked. Skin: Reports Diaphoresis Physical Exam Initial Vital Signs Vital Signs (First) Date Time Temp Pulse Resp B/P Pulse Ox O2 Delivery O2 Flow Rate FiO2 04/25/16 14:49 36.5 120 15 133/85 97 Room Air Initial VS: Reviewed, Vital signs abnormal Head / Eyes: Atraumatic, Normocephalic, PERRL ENT: Mucous membranes moist, Conjunctiva normal, No scleral icterus Neck: Supple, Non-tender, Full range of motion Extremities: Vascular intact, Neuro intact, No swelling, No tenderness Skin: Warm, Dry, No cyanosis Psychiatric: Mood/affect normal, Behavior normal, Normal thought content General/Constitutional: Awake, Alert, Cooperative Appearance / Presentation: Positive: Uncomfortable no focal defecits Respiratory / Chest: Atraumatic, Breath sounds NL, Breath sounds = bilat, No respiratory distress, No rales, No rhonchi, No wheezing, No retractions Cardiovascular: Heart rate NL, Regular rhythm, Heart sounds NL, No gallop, No murmurs, No rubs Abdomen: Atraumatic, Soft, Non-tender, No guarding, No rebound, BS normoactive Back: Atraumatic, Inspection NL, Full range of motion, Painless range of motion , Non-tender Neurologic: Oriented X3, Speech NL, No motor deficits, No sensory deficits Interpretation & Diagnostics Interpretation & Diagnostics: See MRI of the lumbar spine positive for osteomyelitis/discitis of the lumbar spine earlier today as an outpatient: IMPRESSION: 1. Increased L4-5 marrow and intervertebral disc space edema and enhancement when compared with the study dated 03/26/16 in addition to increased enhancement within the L4-5 paraspinous soft tissues. These findings are highly suspicious for acute osteomyelitis/discitis. 2. Increased L2-L3 marrow enhancement and subtle enhancement within the intervertebral disc space suspicious for multilevel discitis/osteomyelitis. Lab Results Interpretation Result Diagram: 04/25/16 1756 04/25/16 1756 Test 04/25/16 17:56 White Blood Count 9.9th/mm3 (3.8-10.1) Red Blood Count 4.43mil/mm3 (4.40-5.80) Hemoglobin 12.1g/dL (13.8-17.2) Hematocrit 36.7% (41.0-50.0) Mean Corpuscular Volume 82.8fL (81-100) Mean Corpuscular Hemoglobin 27.3pg (27.0-35.0) Mean Corpuscular Hemoglobin Concent 33.0% (32.0-37.0) Red Cell Distribution Width 13.6% (12.3-15.4) Platelet Count 391bil/L (150-400) Neutrophils (%) (Auto) 79.7% (40-74) Lymphocytes (%) (Auto) 12.2% (14-46) Monocytes (%) (Auto) 7.5% (4-12) Eosinophils (%) (Auto) 0.2% (0-5) Basophils (%) (Auto) 0.2% (0-3) Erythrocyte Sedimentation Rate 70mm/hr (0-30) Sodium Level 130mEq/L (134-144) Potassium Level 3.7mEq/L (3.5-5.2) Chloride Level 89mEq/L (97-108) Carbon Dioxide Level 27mmol/L (18-29) Blood Urea Nitrogen 28mg/dL (8-27) Creatinine 0.59mg/dL (0.76-1.27) Estimat Glomerular Filtration Rate 147mL/min (>59) Glucose Level 124mg/dL (60-99) Calcium Level 9.2mg/dL (8.5-10.1) Total Bilirubin 0.3mg/dL (0.0-1.2) Aspartate Amino Transf (AST/SGOT) 24U/L (0-50) Alanine Aminotransferase (ALT/SGPT) 26U/L (0-44) Alkaline Phosphatase 94U/L (25-160) C-Reactive Protein 18.2mg/dL (0.0-0.5) Total Protein 6.6g/dL (6.4-8.4) Albumin 2.9g/dL (3.4-5.0) Hold Trevizo Top Tube Received (Received) Lab Results Interpretation: CBC normal CMP normal Sedimentation rate elevated CRP elevated Blood cultures 3 pending-the first blood culture was drawn and then the patient spiked the fever, so 2 subsequent blood cultures were then drawn UA pending Re-Eval/Medical Decision Med Decision/Clinical Course Is a 65-year-old male referred from the primary care physician's office with a label of a epidural abscess. However, the patient was triaged category 3, and so was ultimatlely seen per the triage process. Review see the patient as he this complaint, medially reviewed the MRI that was obtained earlier today-fortunately there are no findings on MRI of an epidural abscess or pus/drainable pocket of infection, but that the MRI was suggested of multilevel osteomyelitis/diskitis. The patient has had no instrumentation/procedure (to include dental) , recent clinical infection, IV drug use, or minimal compromise status developed acute back pain at the beginning of March. He is admitted to the hospital here for control of back pain given the severity, never had anything like it-and had an MRI that was negative for clear pathology at that time. However since discharge should develop worsening back pain, to the point he has severe pain he cannot really walk secondary to pain. He reports no weakness in his legs, no bowel or bladder dysfunction, just terrible pain if he tends to stand. No radiation of the pain, no sciatic symptoms-all pain is well localized to the midline of the lumbar spine. His debate among the family, and family members and patient as to whether or not the patient's had fevers-the patient's family is divided that kailyn had a couple episodes where he felt like he had a fever subjectively, although other family members indicate they did not think that he did-but no temperature was measured. However, shortly after this debate took place, the patient ended debate by developing a naida fever while in the department. She arrived in significant pain, but was readily controlled with titrated pain medication. On exam he is alert, nontoxic, clinically well, but mildly uncomfortable. He does not have focal deficits or findings of cauda equina on exam. He does not have a heart murmur. He does have a history of previous lymphoma, but it has been in remission- however I did discuss the situation with the monitor and storage bin tender oncologist for consideration they were not convinced that this be related to their lymphoma, recommended transfer to [facility]. I electronically transmit the images, discussed the case with the transfer center, and discussed the case with the spine surgeon Dr. Arana after he reviewed the images. He agrees with our interpretation does not find any surgical drainable abscess, and recommended medical management with antibiotics and culture/evaluation. He indicated that [facility] would be willing to accept the patient, the patient would be boarded in the department are there are no beds available. If possible he asked that we reconsider admission here. I paged the ID physician, although may be on-call-and I have explained the situation to the hospitalist who has accepted the patient. Source of Hx: Old records Re-Evaluation/Progress : Time of Eval: 18:01 Patient Status: Condition unchanged Re-Evaluation/Progress Note: Pt rechecked. He has developed a slight fever. Consultation #1: Note: Case discussed with Dr. Snowden who had talked with patient's oncologist Dr. Abad - they think his findings are unlikely be related to the lymphoma, and recommended transfer to [facility]. Consultation #2: Referral / Consult Name: Sydnie Snowden MD Consulted With: Surgeon Requested Call at: 18:00 Call Returned at: 19:20 Note: Images transferred down and the case discussed with the [facility] transfer Center. The images in case of been discussed with the spine surgeon Dr. Arana who indicates there are no findings to indicate a need for surgical management. The recommendation was that this patient be treated medically with IV antibiotics such as Zosyn plus vancomycin. They would recommend the next steps of simply following the patient's and cultures. Because this patient be treated medically, there are not seen overt indication the patient requires transfer to [facility], although they would accept the patient to be boarded in the ED if admission here is not possible. Consultation #3: Referral / Consult Name: Durga Nelson MD Requested Call at: 19:25 Note: Paged ID Dr. Nelson (who may be out of town) Consultation #4: Referral / Consult Name: Daquan Jarrell MD Consulted With: Hospitalist Requested Call at: 19:29 Call Returned at: 19:30 Senior Php Software Developer: Accepts admit Note: Case and situation discussed, including the fact that the patient's images have been reviewed by spine surgeon Dr. Arana at [facility] recommends medical admission for IV antibiotics and workup. Differential Diagnosis: Positive: Osteomyelitis (discitis C myelitis of the lumbar spine), Negative: Abdominal aortic aneurysm, , Aortic dissection, Cauda equina syndrome, Deg osteoarthritis, Ectopic , Epidural abscess (there is no abscess,), Fracture, Herniated disk, Sciatica, Spinal mass Counseled Regarding: Diagnosis, Lab results, Need for transfer Discharge & Departure Impression: Primary Impression: Osteomyelitis of lumbar spine Additional Impression: Fever Fever type: unspecified Qualified Code: R50.9 - Fever, unspecified Disposition: Transfer, [place]/[facility] Discharge Condition All VS Reviewed: Yes Condition: Stable Referrals: Delta Mitchell MD (PCP) Crit Care Except Billable Proc Time Spent: 30-74 minutes Services Performed: Patient management by me, Time spent at bedside, Reviewing test results, Reviewing imaging, Discussing patient care, Documentation in record, Time with fam/surrogate Scribe Attestation Portion of this note were transcribed by Nessa García. I, Dr. Odonnell, personally performed the history, physical exam, and medical decision-making: I reviewed and confirmed the accuracy for the information in the transcribed note. Signed by: jay Escalera, 04/25/16 1800 copies to: Delta Mitchell MD, Matthew F MD Apr 25, 2016 17:25 Nessa García Apr 25, 2016 17:44
[2016-04-25 18:06] LABS: BASOPHILS % (AUTO) 0.2 % (0-3); EOSINOPHILS % (AUTO) 0.2 % (0-5); MONOCYTES % (AUTO) 7.5 % (4-12); Mean Corpuscular Hemoglobin 27.3 pg (27.0-35.0); Mean Corpuscular Volume 82.8 fL (81-100); NEUTROPHILS % (AUTO) 79.7 % (40-74); Platelet Count 391 bil/L (150-400)
[2016-04-25 18:22] VITALS: BP 169/71; PULSE 110; RESP 22; O2SAT 97
[2016-04-25 18:27] LABS: ERYTHROCYTE SEDIMENTATION RATE 70 mm/hr (0-30)
[2016-04-25] MEDS ORDERED: Vancomycin Dose per Pharmacist XX ONE (19:10)
[2016-04-25] MEDS ORDERED: Piperacillin-Tazo 3.375 Gm Inj 3.375 GM in Dextrose 5% Minibag Plus 50 ML IV ONE (19:10)
[2016-04-25] MEDS ORDERED: Polyethylene Glycol (PEG) 17 Gm Powder PO PRN (19:20)
[2016-04-25] MEDS ORDERED: Alum-Mag Hydrox-Simeth 30 mL Suspension PO PRN (19:20)
[2016-04-25] MEDS ORDERED: Ondansetron 2 mg/mL 2 mL Inj IVPUSH PRN (19:20)
[2016-04-25] MEDS ORDERED: Vancomycin Inj 2,000 MG in 0.9% Sodium Chloride 500 ML IV ONE (19:20)
[2016-04-25] MEDS ORDERED: HYDR25TA4 PO (19:37)
[2016-04-25] MEDS ORDERED: IBUP400T22 PO (19:38)
[2016-04-25] MEDS ORDERED: ASCO100089 PO (19:38)
[2016-04-25] MEDS ORDERED: ZOV800 PO (19:39)
--- NOTE | 2016-04-25 19:55 | NUR ---
Admit Patient arrived from ED at 1950. A&Ox3. vitals stable. Report given by Simran CAMPA. Patient stated his pain level was minimal at time of arrival. IV in right hand patent.
[2016-04-25] MEDS: Dextrose 5% 500 ML IV SCH (20:16)
[2016-04-25 20:35] LABS: APPEARANCE,URINE CLEAR (CLEAR,HAZY); COLOR,URINE YELLOW (YELLOW); OCCULT BLOOD,URINE NEGATIVE (NEGATIVE); UROBILINOGEN,URINE NORMAL (NORMAL)
[2016-04-25 20:48] VITALS: BP 138/82; PULSE 104; RESP 17; O2SAT 96
--- NOTE | 2016-04-25 21:05 | PCM.PHAPRO ---
Progress Date of Service: Apr 25, 2016 Vancomycin Management per Pharmacy: Indication: Osteomyelitis Age: 65 yo Weight: 101 kg Labs: WBC: 9.9 SrCr: 0.59 mg/dL Procalcitonin: 0.25 Vitals: Temp: Febrile HR: 120 BPM BP: Hypertensive Nephrotoxic Risk Factors: Contrast for MRI, Zosyn IV, HCTZ Recommendation: Vancomycin Load: 2000 mg IV x 1 (20 mg/kg) Vancomycin Maintenance: 1750 mg IV Q12h (~17 mg/kg) Trough: Draw vancomycin trough on 04/27 @ 0730 prior to 3rd maintenance dose - early to determine if patient adequately clearing Thank You, Lynette Blackburn, Pharm D. Lynette Blackburn Apr 25, 2016 21:05
[2016-04-25 21:23] VITALS: BP 128/77; PULSE 99; RESP 14; O2SAT 95
--- NOTE | 2016-04-25 21:44 | PCM.HPMED ---
Subjective Date of Service Apr 25, 2016 Primary Provider: Admitting Physician: Primary Care Physician: Delta Mitchell MD Attending Physician: Admit Status: From the Emergency Department, Full Admit, Remote Telemetry Chief Complaint: Acute on chronic lower back pain History of Present Illness: Isaiah Wiggins is a 65 year old male with Follicular lymphoma in remission and Hypertension who presents to [facility] emergency department `due to extreme diffuse lower back pain. About a month ago he thought he threw his back out and pain became so severe he was admitted to [facility] on 03/26/16. His MRI at the time did not reveal any acute findings. He returned home two days later with slightly reduced pain. When he went home he wasn't feeling that much better. Since discharge, his pain has returned and increased in severity. He started going downhill fairly quickly after getting released from the hospital. Pt can now barely walk and needs assistance to get out of bed. Pain does not radiate, no change in bowel or bladder movements. Pt's family noticed a subjective fever 2 times in the past 2 weeks, diaphoresis at night a few times a week and complaints of feeling cold. He is having a hard time walking due knee (right knee swelling as well, scheduled to see a Orthopedic surgeon) and back pain. Denies any urinary symptoms, no coughing. Denies any further trauma to the back Case discussed with Dr Odonnell, he was in contact with Oncology and then with the oncall Neurosurgery team at . Discussion was that the patient will not need any surgical intervention but just antibiotics. There are no beds available at this time and will be admitting patient here. Patient had no leukocytosis but had fever (39.1) and tachycardia (120). Vancomycin and Zosyn IV initiated Review of Systems: Pertinent positives as noted in HPI. All other systems were reviewed and are negative Allergies Coded Allergies: No Known Allergies (Verified Allergy, Unknown, 04/25/16) Home Medications From Discharge Summary Aspirin Chew (Aspirin Chew) 81 Mg Chew 81 MG PO DAILY (Reported) Gluc/Georges-MSM#2/C/D3/Gianfranco/Born (Ilglzxzhwq-Gezjmjygufl-VDR Tab) 1 Each Tablet 1 EACH PO BID (Reported) Losartan Potassium (Losartan Potassium) 50 Mg Tablet 50 MG PO DAILY (Reported) PMH Follicular lymphoma, in remission Hypertension Surgical History Hip surgery Shoulder surgery Bowel surgery as a child Family History No history of premature CAD Social History Hx Alcohol Use: No Hx Substance Use: No Hx Tobacco Use: No Smoking Status: Never Smoker Living Arrangement: with Family Exam Vital Signs Vital Sign - Last Date Time Temp Pulse Resp B/P Pulse Ox O2 Delivery O2 Flow Rate FiO2 04/25/16 18:22 39.1 110 22 169/71 97 Room Air Exam General: Alert, Oriented X3, Cooperative, No acute Distress Eyes: PERRLA, Scleral Anicteric Mouth: Mouth Normal, Mucous Membranes Moist/[place] Neck: Supple, no Thyromegaly, trachea central. Chest & Lungs: Clear to auscultation & percussion, No adventitious breath sounds, no crackles, no wheeze Cardiovascular: Normal S1, Normal S2, No Murmurs/Rubs/Gallops, Regular Rate/ Rhythm, (No JVD, no peripheral edema) Pulses: Radial (present and equal), Dorsalis Pedi (present and equal) Abdomen: Soft, Non-tender, Non-distended, Normoactive bowel tones. Musculoskeletal: Unremarkable. Normal range of motion, no swollen or erythematous joints Extremities: No edema, no cyanosis, no clubbing. Right knee: mild swelling and tenderness, no erythema Skin: No rashes. Warm and dry, no erythematous areas Neurological: Grossly neurologically intact, Normal Speech, Sensation Intact Lymphatic: Lymph nodes Cervical and Axillary not palpable. Lab and Diagnostics Labs Laboratory Tests Test 04/25/16 17:56 White Blood Count 9.9th/mm3 (3.8-10.1) Red Blood Count 4.43mil/mm3 (4.40-5.80) Hemoglobin 12.1g/dL (13.8-17.2) Hematocrit 36.7% (41.0-50.0) Mean Corpuscular Volume 82.8fL (81-100) Mean Corpuscular Hemoglobin 27.3pg (27.0-35.0) Mean Corpuscular Hemoglobin Concent 33.0% (32.0-37.0) Red Cell Distribution Width 13.6% (12.3-15.4) Platelet Count 391bil/L (150-400) Neutrophils (%) (Auto) 79.7% (40-74) Lymphocytes (%) (Auto) 12.2% (14-46) Monocytes (%) (Auto) 7.5% (4-12) Eosinophils (%) (Auto) 0.2% (0-5) Basophils (%) (Auto) 0.2% (0-3) Erythrocyte Sedimentation Rate 70mm/hr (0-30) Sodium Level 130mEq/L (134-144) Potassium Level 3.7mEq/L (3.5-5.2) Chloride Level 89mEq/L (97-108) Carbon Dioxide Level 27mmol/L (18-29) Blood Urea Nitrogen 28mg/dL (8-27) Creatinine 0.59mg/dL (0.76-1.27) Estimat Glomerular Filtration Rate 147mL/min (>59) Glucose Level 124mg/dL (60-99) Calcium Level 9.2mg/dL (8.5-10.1) Total Bilirubin 0.3mg/dL (0.0-1.2) Aspartate Amino Transf (AST/SGOT) 24U/L (0-50) Alanine Aminotransferase (ALT/SGPT) 26U/L (0-44) Alkaline Phosphatase 94U/L (25-160) C-Reactive Protein 18.2mg/dL (0.0-0.5) Total Protein 6.6g/dL (6.4-8.4) Albumin 2.9g/dL (3.4-5.0) Hold Trevizo Top Tube Received (Received) Microbiology 04/25/16 Blood Culture, Received Pending Result Diagram: 04/25/16 17504/[id number] X-Rays, CTs and MRIs MRI LUMBAR SPINE WITH AND WITHOUT CONTRAST 04/25/16 IMPRESSION: 1. Increased L4-5 marrow and intervertebral disc space edema and enhancement when compared with the study dated 03/26/16 in addition to increased enhancement within the L4-5 paraspinous soft tissues. These findings are highly suspicious for acute osteomyelitis/discitis. 2. Increased L2-L3 marrow enhancement and subtle enhancement within the intervertebral disc space suspicious for multilevel discitis/osteomyelitis. These findings were discussed with Dr. Mitchell at 2:22 PM on 04/25/16. Dictated by: Jenna Cote M.D. on 04/25/2016 at 14:19 Approved by: Jenna Cote M.D. on 04/25/2016 at 14:32 Assessment & Plan Isaiah Wiggins is a 65 year old male with Follicular lymphoma in remission and Hypertension who presents to [facility] emergency department `due to extreme diffuse lower back pain. 1. Acute Lumbar pain due to Osteomyelitis. Present on admission Discussion with Neurosurgery at , no recommendation for surgery but continue antibiotics. Differential diagnosis includes Goldstein disease, Metastatic cancer, Multiple Myeloma. - continuing Vancomycin and Zosyn IV - Blood cultures - consult with Infectious disease if available concerning duration and de escalation of antibiotics - transfer to [facility] if worsening 2. Sepsis. Present on admission Meeting SIRS criteria with tachycardia and Fever. Source of infection is Osteomyelitis - IV fluids resuscitations - checking lactic acid - Sepsis protocol continued 3. Acute Hyponatremia. Present on admission Etiology unclear but suspect extra renal salt loss - IV fluids resuscitations 4. Follicular lymphoma, in remission call taker Oncology does not think his current findings are related to his Lymphoma - follow up with Oncology as outpatient 5. Hypertension - continue Losartan 50 mg daily - Heart healthy diet - Acetaminophen as needed for mild pain/fever/headache - Bowel regimen as needed - Antiemetic as needed Patient admitted under inpatient status with expected length of stay > 2 midnights for severity of present symptoms, complexities of treatment plan and risk for adverse event. . VTE Prophylaxis: Sub-Q Heparin (Unfractionated) Resuscitation Status: CPR: Attempt Resuscitation Daquan Jarrell MD Apr 25, 2016 19:43
[2016-04-25 22:05] VITALS: BP 131/78; PULSE 89; RESP 20; O2SAT 96
[2016-04-25] MEDS: HYDROmorphone PCA 0.2 mg/mL 30 mL Inj IV PRN (22:53)
[2016-04-25] MEDS: 0.9% Sodium Chloride 1,000 ML IV SCH (23:01)
[2016-04-26] VITALS (11 sets, daily range): BP systolic 128–150; BP diastolic 73–81; PULSE 86–101; RESP 14–20; O2SAT 93–96
[2016-04-26] MEDS: Sodium Chloride LOK Flush 10 mL Syringe IVFLUSH SCH ×4 (00:30→23:22)
[2016-04-26] MEDS ORDERED: Piperacillin-Tazo 3.375 Gm Inj 3.375 GM in Dextrose 5% Minibag Plus 50 ML IV SCH (00:30)
[2016-04-26] MEDS: Heparin 5,000 Unit/mL Inj SUBQ SCH ×3 (00:45→17:56)
[2016-04-26] MEDS: Piperacillin-Tazo 3.375 Gm Inj 3.375 GM in Dextrose 5% Minibag Plus 50 ML IV SCH ×3 (04:42→23:19)
[2016-04-26] MEDS: Vancomycin Dose per Pharmacist XX SCH (08:30)
--- NOTE | 2016-04-26 09:57 | NUR ---
Evaluation completed. Please go to "Notes" then click on "Assessments and Notes" (bottom left corner of screen). Then select appropriate discipline tab on top of screen.
[2016-04-26] MEDS: Vancomycin Inj 1,750 MG in 0.9% Sodium Chloride 500 ML IV SCH ×2 (10:04→20:59)
--- NOTE | 2016-04-26 12:55 | DRSVH ---
[facility] [address] [place] [address] Echocardiogram Report Name: ALIREZA BERNABE Study Date: 04/26/2016 Height: 72 in Hospital Exam Location: [facility] Weight: 224 lb Gender: Male BSA: 2.2 m2 : 1950 Age: 65 yrs BP: 150/74 mmHg Reason For Study: SEPSIS Ordering Physician: HOSPITALIST [facility] Performed By: Kristy Palacios Referring Physician: Dr. Delta Mitchell Interpretation Summary 1. Normal left ventricular size, wall thickness and systolic function with an estimated EF of 60-65% 2. Upper limits of normal right ventricular size with normal systolic function. 3. No obvious vegetations appreciated in the sampled views of the cardiac valves. No valvular regurgitation to suggest valvular destruction secondary to infection Procedure: A two-dimensional transthoracic echocardiogram with color flow and Doppler was performed. The study quality was technically adequate. Comparison is made with the echocardiogram images of 08/17/2009. No report available for review. The patient was in normal sinus rhythm during the exam. Left Ventricle: The left ventricle is normal in size. There is normal left ventricular wall thickness. The ejection fraction is estimated to be 60-65%. There are no obvious focal wall motion abnormalities noted but poor endocardial definition reduces the sensitivity for the detection of such. Right Ventricle: The right ventricle is at the upper limits of normal in size. The right ventricular systolic function is normal. Atria: Both atria are normal in size. The interatrial septum is intact with no evidence for an atrial septal defect. Mitral Valve: Mild sclerotic changes. leaflets have normal excursion. There is no vegetation seen on the mitral valve. There is trace mitral regurgitation. Aortic Valve: The aortic valve is trileaflet. The aortic valve opens well. No vegetation appreciated. No aortic regurgitation is present. Tricuspid Valve: The tricuspid valve leaflets are thin and pliable. No obvious vegetations. There is mild tricuspid regurgitation. The right ventricular systolic pressure is estimated at 49 mmHg assuming a right atrial pressure of 8 mm Hg. Pulmonic Valve: The pulmonic valve is not well seen, but is grossly normal. Great Vessels: The aortic root is mildly dilated. The ascending aorta is mildly enlarged. The aortic arch could not be visualized. The ascending aorta measures 3.7 cm. The IVC is dilated (diameter is greater than 2.1 cm) yet it collapses greater than 50% with a sniff. This suggests a right atrial pressure of 8 mm Hg. Pericardium/ Pleura There is no pericardial effusion. MMode/2D Measurements & Calculations LVIDd: 5.6 cm LA dimension: 4.1 cm RA long axis LVOT diam LVIDs: 3.9 cm FS: 31.0 % LA A2 area: 20.3 cm RA area Ao root diam EPSS: 0.34 cm LA A4 area: 26.7 cm IVSd: 0.94 cm LA length (vol): 6.4 cm : 17.5 cm Aortic Jxn LVPWd: 1.0 cm LA vol: 71.5 ml RA vol: 41.6 ml LA vol index RA asc Aorta : 18.6 mm2 Diam: 3.7 cm IVC diam: 2.3 cm LV fine. diameter/BSA LV sys. diameter/BSA RVD1 (basal) TAPSE: 2.5 cm (cm/m^2): 2.5 (cm/m^2): 1.7 Doppler Measurements & Calculations Ao V2 max MV E max gurinder MV E/A: 0.98 TR max gurinder : 141.4 cm/sec : 112.7 cm/sec Med Peak E' Gurinder : 319.6 cm/sec Ao max PG MV A max gurinder TR max PG : 8.0 mmHg : 115.3 cm/sec E/E' med: 10.2 : 40.8 mmHg Ao mean PG MV P1/2t: 48.6 msec Pulm A Revs Dur PA V2 max : 103.1 cm/sec LVOT Max Gurinder MV A dur: 0.09 sec PA mean PG : 117.2 cm/sec PA Accel Time BRI(I,D): 3.8 cm : 0.07 sec sev ratio MV dec time MV P1/2t max gurinder Ao V2 mean LV V1 max PG : 0.17 sec : 98.1 cm/sec MVA(P1/2t): 4.5 cm2 Ao V2 VTI: 22.8 cm LV V1 VTI BRI(V,D): 3.4 cm2 : 21.1 cm PA V2 mean BRI indexed to BSA Emely Shahs Dur - MV : 68.8 cm/sec (cm^2/m^2): 1.7 A Dur: 0.02 msec Reading Physician:12:54 PM
[2016-04-26] MEDS: 0.9% Sodium Chloride 1,000 ML IV SCH ×2 (14:13→15:20)
--- NOTE | 2016-04-26 15:47 | NUR ---
Pain/activity Pt states pain is well controlled at 4/10 with [employer] Dilaudid. Pt walked in suazo with PT.
--- NOTE | 2016-04-26 16:08 | NUR ---
Social Work-initial assessment: Data & Assessment: See initial assessment. EMR Reviewed. Pt is a 65 y/o female who was admitted on 04/25/16 for Osteomyelitis per H&P. Pt's insurance is [facility] and [employer] [place] and PCP is Delta Mitchell MD. SW met with pt and patient's Aixa Wiggins at bedside to discuss discharge planning, SW role explained and initial assessment complete. Pt is alert and oriented x3. Pt resides at home alone in a two story home with three steps to enter and 17steps on the inside where pt remains independent with basic ADLs. Pt uses a 4ww at baseline. Patient also has a WC, cane and SC. Pt has no HH or SNF history. Pt has not completed DPOA/ advanced directive and accepted information provided. Pt has no longterm care or VA benefits. SW discuss Home infusion services with the patient and provided him with a choice list. Patient wants to review the list and will notify SW of his choice. Pt's family to provide transport home at discharge. SW provided phone number and plan on white board in room. SW will continue to follow. Plan:Pt to likely discharge home with home infusion services. SW will [id number] with patient for home infusion choice. Pt's family is supportive. SW will continue to follow. Marito Graff LMSW, ADAIR Addendum: 04/26/16 at 1623 by MARITO GRAFF Amended: Links added.
[2016-04-26] MEDS: HYDROmorphone PCA 0.2 mg/mL 30 mL Inj IV PRN (16:13)
--- NOTE | 2016-04-26 16:20 | PCM.PHAPRO ---
Progress Vancomycin Management: -trough level not drawn this morning prior to 0830 dose. will reschedule for 8 pm this evening Shantel Blank [facility] Apr 26, 2016 16:20
--- NOTE | 2016-04-26 17:57 | PCM.PNMED ---
Subjective Date of Service Apr 26, 2016 Subjective He is seen in follow-up of his newly diagnosed lumbar osteomyelitis L3, L4, L5. While lying still his pain seems to be well controlled. We discussed his recent hospitalization when he woke up with back pain a month ago and now has this infection. The maximal temperature has been 37.6 Exam Vital Signs Vital Sign - Last Date Time Temp Pulse Resp B/P Pulse Ox O2 Delivery O2 Flow Rate FiO2 04/26/16 09:02 86 04/26/16 07:44 16 04/26/16 05:26 36.8 150/74 93 Room Air Intake and Output 04/25/16 04/25/16 04/26/16 Cumulative From/Thru 15:00 23:00 07:00 04/25/16 14:49 - 04/26/16 06:59 Intake Total 600 ml 600 ml Output Total 1325 ml 1325 ml Balance -725 ml -725 ml Intake Oral 600 ml 600 ml Output Urine Total 1325 ml 1325 ml Exam General: Alert, Oriented X3, Cooperative, No acute Distressl. Chest & Lungs: Clear to auscultation & percussion, No adventitious breath sounds, no crackles, no wheeze Cardiovascular: Normal S1, Normal S2, No Murmurs/Rubs/Gallops, Regular Rate/ Rhythm, (No JVD, no peripheral edema) Musculoskeletal: Unremarkable. Normal range of motion, no swollen or erythematous joints Extremities: No edema, no cyanosis, no clubbing. Right knee: mild swelling and tenderness, no erythema Skin: No rashes. Warm and dry, no erythematous areas Neurological: Grossly neurologically intact, Normal Speech, Sensation Intact IVs and Medications Medications Reviewed: Medications were reviewed in detail Lab and Diagnostics Result Diagram: 04/25/16175504/25/[id number] X-Rays, CTs and MRIs MRI LUMBAR SPINE WITH AND WITHOUT CONTRAST 04/25/16 IMPRESSION: 1. Increased L4-5 marrow and intervertebral disc space edema and enhancement when compared with the study dated 03/26/16 in addition to increased enhancement within the L4-5 paraspinous soft tissues. These findings are highly suspicious for acute osteomyelitis/discitis. 2. Increased L2-L3 marrow enhancement and subtle enhancement within the intervertebral disc space suspicious for multilevel discitis/osteomyelitis. These findings were discussed with Dr. Mitchell at 2:22 PM on 04/25/16. Dictated by: Jenna Cote M.D. on 04/25/2016 at 14:19 Approved by: Jenna Cote M.D. on 04/25/2016 at 14:32 Cardiac Echo Impressions Echocardiogram Report Name: ISAIAH BERNABE Study Date: 04/26/2016 Height: 72 in Hospital Exam Location: [facility] Weight: 224 lb Gender: Male BSA: 2.2 m2 : 1950 Age: 65 yrs BP: 150/74 mmHg Reason For Study: SEPSIS Ordering Physician: HOSPITALIST [facility] Performed By: Kristy Palacios Referring Physician: Dr. Delta Mitchell Interpretation Summary 1. Normal left ventricular size, wall thickness and systolic function with an estimated EF of 60-65% 2. Upper limits of normal right ventricular size with normal systolic function. 3. No obvious vegetations appreciated in the sampled views of the cardiac valves. No valvular regurgitation to suggest valvular destruction secondary to infection Assessment & Plan Isaiah Bernabe is a 65 year old male with Follicular lymphoma in remission and Hypertension who presents to [facility] emergency department `due to extreme diffuse lower back pain. 1. Acute Lumbar pain due to Osteomyelitis. Present on admission Discussion with Neurosurgery at yesterday, no recommendation for surgery but continue antibiotics. Differential diagnosis includes Goldstein disease, Metastatic cancer, Multiple Myeloma. - continuing Vancomycin and Zosyn IV - Blood cultures Growing Gram Positive Cocci - consult with Infectious disease when available concerning duration and de escalation of antibiotics - transfer to [facility] if worsening 2. Sepsis. Present on admission Meeting SIRS criteria with tachycardia and Fever. Source of infection is Osteomyelitis - IV fluids resuscitations 3. Acute Hyponatremia. Present on admission Etiology unclear but suspect extra renal salt loss - IV fluids resuscitations 4. 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 Hypertension - continue Losartan 50 mg daily - Heart healthy diet - Acetaminophen as needed for mild pain/fever/headache - Bowel regimen as needed - Antiemetic as needed Patient admitted under inpatient status with expected length of stay > 2 midnights for severity of present symptoms, complexities of treatment plan and risk for adverse event. . VTE Prophylaxis: Sub-Q Heparin (Unfractionated) VTE Mechanical Devices: Intermittant Pneumatic CD Resuscitation Status: CPR: Attempt Resuscitation Cortes Haney MD Apr 26, 2016 11:16
[2016-04-26] MEDS: Dextrose 5% 500 ML IV SCH (20:16)
[2016-04-27] VITALS (11 sets, daily range): BP systolic 119–152; BP diastolic 70–81; PULSE 84–99; RESP 16–19; O2SAT 93–97
[2016-04-27] MEDS: 0.9% Sodium Chloride 1,000 ML IV SCH ×3 (01:05→21:20)
[2016-04-27] MEDS: Heparin 5,000 Unit/mL Inj SUBQ SCH ×3 (01:05→17:22)
[2016-04-27] MEDS: Piperacillin-Tazo 3.375 Gm Inj 3.375 GM in Dextrose 5% Minibag Plus 50 ML IV SCH (03:27)
[2016-04-27 06:48] LABS: BASOPHILS % (AUTO) 0.5 % (0-3); EOSINOPHILS % (AUTO) 1.9 % (0-5); MONOCYTES % (AUTO) 9.4 % (4-12); Mean Corpuscular Hemoglobin 27.1 pg (27.0-35.0); NEUTROPHILS % (AUTO) 71.7 % (40-74); Platelet Count 346 bil/L (150-400)
--- NOTE | 2016-04-27 07:15 | NUR ---
PICC Called IVT left a message at for picc placement per MD orders. Care ongoing.
[2016-04-27] MEDS ORDERED: Vancomycin Serum Trough XX ONE (07:30)
[2016-04-27] MEDS: Vancomycin Inj 1,750 MG in 0.9% Sodium Chloride 500 ML IV SCH (08:25)
[2016-04-27] MEDS: Vancomycin Dose per Pharmacist XX SCH (08:26)
[2016-04-27] MEDS: Sodium Chloride LOK Flush 10 mL Syringe IVFLUSH SCH ×2 (08:26→16:30)
--- NOTE | 2016-04-27 09:13 | NUR ---
ENZO signed. Kenia Lyons CADDY
--- NOTE | 2016-04-27 09:16 | NUR ---
Social Work- Continued D/C Planning Data: EMR reviewed. Pt is on day 2 of hospitalization for osteomyelitis per H&P. Pt to discharge with IV abx when medically stable. SW followed up with pt at bedside regarding discharge plan and [facility] preference. Pt did not have a preference. SW referred to calendar and made referral to [facility] to check pt's benefits. SW spoke with liakrysten Ramirez at [facility] who states that they will follow up regarding pt's out of pocket cost tomorrow. SW to follow up with pt once information is known. SW will continue to follow. Assessment: Pt who will discharge with IV abx. Plan: Pt to discharge home when medically stable. [facility] to follow up with pt tomorrow regarding cost of IV abx for home. SW will continue to follow. VIRGINIA Goyal
[2016-04-27] MEDS ORDERED: Vancomycin Inj 250 MG in 0.9% Sodium Chloride 100 ML IV ONE (09:35)
--- NOTE | 2016-04-27 09:47 | PCM.PHAPRO ---
Progress Vancomycin Management: -pt is receiving Vancomycin 1.75gm iv [id number] for lumbar osteomyelitis -trough level returned this morning at 13.1 -pt is afebrile, wbc 7.4, serum creatinine stable 0.55 -positive bc's 6/6 g+ cocci, strep, id to follow -concurrent antibiotics: Zosyn -Plan: will give an additional 250mg of Vancomycin now and increase dose to 2gm [id number] with careful monitoring as pt is still receiving Zosyn. trough level scheduled for 8 pm tomorrow evening with goal of 15-20 desired Shantel Blank [facility] Apr 27, 2016 09:47
--- NOTE | 2016-04-27 11:15 | PCM.PNMED ---
Subjective Date of Service Apr 27, 2016 Subjective No new symptoms. No back pain complaints on current treatment. PICC line going in today. CRP of 20.9 WBC of 7.4. Gram positive Cocci on 3 blood cultures. Exam Vital Signs Vital Sign - Last Date Time Temp Pulse Resp B/P Pulse Ox O2 Delivery O2 Flow Rate FiO2 04/27/16 06:47 18 96 04/27/16 05:42 99 04/27/16 04:36 36.6 123/70 Room Air Intake and Output 04/26/16 04/26/16 04/27/16 Cumulative From/Thru 15:00 23:00 07:00 04/25/16 14:49 - 04/27/16 06:24 Intake Total 1147 ml 2454 ml 1051 ml 5252 ml Output Total 600 ml 1400 ml 3325 ml Balance 1147 ml 1854 ml -349 ml 1927 ml Intake Oral 836 ml 320 ml 1756 ml IV Total 1147 ml 1618 ml 731 ml 3496 ml Output Urine Total 600 ml 1400 ml 3325 ml # Bowel Movements 0 0 Exam General: Alert, Oriented X3, Cooperative, No acute Distressl. Chest & Lungs: Clear to auscultation & percussion, No adventitious breath sounds, no crackles, no wheeze Cardiovascular: Normal S1, Normal S2, No Murmurs/Rubs/Gallops, Regular Rate/ Rhythm, (No JVD, no peripheral edema) Musculoskeletal: Unremarkable. Normal range of motion, no swollen or erythematous joints Extremities: No edema, no cyanosis, no clubbing. Skin: No rashes. Warm and dry, no erythematous areas Neurological: Grossly neurologically intact, Normal Speech, Sensation Intact IVs and Medications Medications Reviewed: Medications were reviewed in detail Lab and Diagnostics Result Diagram: 04/27/16 0632 04/27/16 0632 X-Rays, CTs and MRIs MRI LUMBAR SPINE WITH AND WITHOUT CONTRAST 04/25/16 IMPRESSION: 1. Increased L4-5 marrow and intervertebral disc space edema and enhancement when compared with the study dated 03/26/16 in addition to increased enhancement within the L4-5 paraspinous soft tissues. These findings are highly suspicious for acute osteomyelitis/discitis. 2. Increased L2-L3 marrow enhancement and subtle enhancement within the intervertebral disc space suspicious for multilevel discitis/osteomyelitis. These findings were discussed with Dr. Mitchell at 2:22 PM on 04/25/16. Dictated by: Jenna Ctoe M.D. on 04/25/2016 at 14:19 Approved by: Jenna Cote M.D. on 04/25/2016 at 14:32 Cardiac Echo Impressions Echocardiogram Report Name: ISAIAH BERNABE Study Date: 04/26/2016 Height: 72 in Hospital Exam Location: [facility] Weight: 224 lb Gender: Male BSA: 2.2 m2 : 1950 Age: 65 yrs BP: 150/74 mmHg Reason For Study: SEPSIS Ordering Physician: HOSPITALIST [facility] Performed By: Kristy Palacios Referring Physician: Dr. Delta Mitchell Interpretation Summary 1. Normal left ventricular size, wall thickness and systolic function with an estimated EF of 60-65% 2. Upper limits of normal right ventricular size with normal systolic function. 3. No obvious vegetations appreciated in the sampled views of the cardiac valves. No valvular regurgitation to suggest valvular destruction secondary to infection Assessment & Plan Isaiah Bernabe is a 65 year old male with Follicular lymphoma in remission and Hypertension who presents to [facility] emergency department `due to extreme diffuse lower back pain. 1. Acute Lumbar pain due to Osteomyelitis. Present on admission Discussion with Neurosurgery at on admission, no recommendation for surgery but continue antibiotics. Differential diagnosis includes Goldstein disease, Metastatic cancer, Multiple Myeloma. - continuing Vancomycin for Staph coverage and changing to Ampicillin for Strep coverage. - Blood cultures Growing Gram Positive Cocci, ID and Sensitivities are pending. - consult with Infectious disease when available concerning duration and de escalation of antibiotics, anticipating 6 weeks of treatment IV beginning on 04/25. - transfer to [facility] if worsening 2. Sepsis. Present on admission Meeting SIRS criteria with tachycardia and Fever. Source of infection is Osteomyelitis - IV fluids can now be stopped. 3. Acute Hyponatremia. Present on admission Etiology unclear but suspect extra renal salt loss - Follow Na of 129. 4. 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 Hypertension - continue Losartan 50 mg daily - Heart healthy diet - Acetaminophen as needed for mild pain/fever/headache - Bowel regimen as needed - Antiemetic as needed Patient admitted under inpatient status with expected length of stay > 2 midnights for severity of present symptoms, complexities of treatment plan and risk for adverse event. . Kenji Haney MD VTE Prophylaxis: Sub-Q Heparin (Unfractionated) VTE Mechanical Devices: Intermittant Pneumatic CD Resuscitation Status: CPR: Attempt Resuscitation Cortes Haney MD Apr 27, 2016 08:05
--- NOTE | 2016-04-27 12:54 | NUR ---
Two unsuccessful attempts to place US Iv in left forearm. RN notified, Dr. Haney paged re situation.
--- NOTE | 2016-04-27 14:31 | PCM.PROC ---
Procedure Note Date of Service: Apr 27, 2016 Pre Procedure Diagnosis: Sepsis, osteomyelitis Post Procedure Diagnosis: Sepsis, osteomyelitis Procedure: A time-out was completed verifying correct patient, procedure, site, positioning , and special equipment if applicable. The patient was placed in a dependent position appropriate for central line placement based on the vein to be cannulated. The patients right chest was prepped and draped in sterile fashion. 1% Lidocaine was used to anesthetize the surrounding skin area. A guide needle was used to attempt to find the subclavian vein; multiple attempts were made without success and the procedure was terminated. Provider and Paralegals: Provider: Dr. Ankur Tucker Attending: Dr. Kenji Haney Indication for Procedure: Sepsis, need for IV antibiotics Findings: Post Procedure CXR pending Will contact Anesthesia about placing a central line later today when their schedule allows. Attending Statement I was present during this entire procedure, with hands on involvement throughout. Ankur Tucker Apr 27, 2016 14:31 Cortes Haney MD Apr 27, 2016 14:56
--- NOTE | 2016-04-27 14:52 | DRSVH ---
PROCEDURE: X-RAY CHEST ONE VIEW, PORTABLE ([id number]) INDICATIONS: 65-year-old male with history of follicular lymphoma, status post subclavian line place ment attempt. TECHNIQUE: One view of the chest was acquired. COMPARISON: None. FINDINGS: Surgical changes and devices: None. Lungs and pleura: No pleural effusions or pneumothorax. Lungs are clear, except for linear atelecta sis or scarring in the right lower lung. Mediastinum: Mediastinal contours appear normal. Heart size is normal. Bones and chest wall: No suspicious bony lesions. Overlying soft tissues appear unremarkable. IMPRESSION: No pneumothorax after subclavian line placement attempt. Dictated by: Venkatesh Vizcarra M.D. on 04/27/2016 at 14:49 Approved by: Venkatesh Vizcarra M.D. on 04/27/2016 at 14:50
[2016-04-27] MEDS: Ampicillin Inj 2,000 MG in 0.9% Sodium Chloride 100 ML IV SCH ×2 (17:23→20:47)
--- NOTE | 2016-04-27 18:33 | NUR ---
Activity Pt wanted to shower today. Tele d/c'd and shower set up. Pt up to standing position to go to the bathroom and immediately felt weak and dizzy. Pt sat back down and we tried again, pt felt extremely weak. Talked to patient about safety over shower and that we could do a bed bath. Pt understands, pt wished to sit up in chair. No dizziness while up in chair. Bed down and locked position, call light w/in reach.
[2016-04-27] MEDS: Dextrose 5% 500 ML IV SCH (20:16)
[2016-04-27] MEDS: Vancomycin Inj 2,000 MG in 0.9% Sodium Chloride 500 ML IV SCH (21:45)
--- NOTE | 2016-04-27 23:29 | NUR ---
CONSTIPATED/PAIN MED: Pt. stated he hasn't have a BM since prior to admission about 3 days ago. Given Miralax tonight. Also pt. states he usually falls asleep and wake up in pain, has [employer] Dilaudid. Gave 5 mg of PO Roxicodone to help him sleep and hopefully not wake up in pain. Voiding clear yellow urine in urinal. A & O, pleasant and cooperative with care.
[2016-04-28] VITALS (11 sets, daily range): BP systolic 145–149; BP diastolic 80–85; PULSE 78–104; RESP 16–20; O2SAT 94–98
[2016-04-28] MEDS: Sodium Chloride LOK Flush 10 mL Syringe IVFLUSH SCH ×3 (00:30→16:30)
[2016-04-28] MEDS: Heparin 5,000 Unit/mL Inj SUBQ SCH ×3 (01:21→17:15)
[2016-04-28] MEDS: Ampicillin Inj 2,000 MG in 0.9% Sodium Chloride 100 ML IV SCH ×4 (02:31→22:12)
[2016-04-28] MEDS: 0.9% Sodium Chloride 1,000 ML IV SCH ×3 (05:45→15:53)
--- NOTE | 2016-04-28 05:56 | PCM.PNMED ---
Subjective Date of Service Apr 28, 2016 Subjective Patient says his lower back hurts all the way across, he is unable to sit up easily. He says he has not used the AGENCY SALES DEVELOPMENT ASSOCIATE pump since noon. He is agreeabel to trying PO pain meds with IV PRN. He denies fevers, chills, nausea and vomiting. Exam Vital Signs Vital Sign - Last Date Time Temp Pulse Resp B/P Pulse Ox O2 Delivery O2 Flow Rate FiO2 04/28/16 05:29 16 94 04/28/16 05:28 36.6 78 145/84 Room Air Intake and Output 04/27/16 04/27/16 04/28/16 Cumulative From/Thru 15:00 23:00 07:00 04/25/16 14:49 - 04/28/16 05:29 Intake Total 2572 ml 2417 ml 38178 ml Output Total 900 ml 1730 ml 5955 ml Balance 1672 ml 687 ml 4286 ml Intake Oral 1636 ml 737 ml 4129 ml IV Total 936 ml 1680 ml 6112 ml Output Urine Total 900 ml 1730 ml 5955 ml # Bowel Movements 0 0 Exam General: NAD Eyes: Bache conjunctivae. No ptosis Neck: No masses, trachea midline, no thyromegaly Lungs: CTA with normal respiratory effort CV: RRR, no murmurs/rubs/gallops GI: Soft, non-tender with no hepatosplenomegaly MSK: Non tender to palpation of lower back Skin: Warm and dry. Psych: A&O X3, with approprate affect IVs and Medications Medications Reviewed: Medications were reviewed in detail Lab and Diagnostics CBC Test 04/25/16 17:56 04/27/16 06:32 04/28/16 06:07 Erythrocyte Sedimentation Rate 70mm/hr (0-30) Neutrophils (%) (Auto) 71.7% (40-74) Lymphocytes (%) (Auto) 16.4% (14-46) Monocytes (%) (Auto) 9.4% (4-12) Eosinophils (%) (Auto) 1.9% (0-5) Basophils (%) (Auto) 0.5% (0-3) White Blood Count 7.6th/mm3 (3.8-10.1) Red Blood Count 4.23mil/mm3 (4.40-5.80) Hemoglobin 11.3g/dL (13.8-17.2) Hematocrit 34.5% (41.0-50.0) Mean Corpuscular Volume 81.6fL (81-100) Mean Corpuscular Hemoglobin 26.7pg (27.0-35.0) Mean Corpuscular Hemoglobin Concent 32.8% (32.0-37.0) Red Cell Distribution Width 13.3% (12.3-15.4) Platelet Count 359bil/L (150-400) CMP Test 04/25/16 17:56 04/26/16 01:20 04/27/16 06:32 04/28/16 06:07 Procalcitonin 0.25ng/mL Hold Trevizo Top Tube Received Lactic Acid Level 0.8mmol/L Total Bilirubin 0.5mg/dL Aspartate Amino Transf (AST/SGOT) 21U/L Alanine Aminotransferase (ALT/SGPT) 23U/L Alkaline Phosphatase 84U/L C-Reactive Protein 20.9mg/dL Total Protein 5.5g/dL Albumin 2.5g/dL Sodium Level 135mEq/L Potassium Level 3.8mEq/L Chloride Level 97mEq/L Carbon Dioxide Level 23mmol/L Blood Urea Nitrogen 18mg/dL Creatinine 1.06mg/dL Estimat Glomerular Filtration Rate 75mL/min Glucose Level 126mg/dL Calcium Level 8.6mg/dL Result Diagram: 04/27/16 0632 04/27/16 0632 X-Rays, CTs and MRIs MRI LUMBAR SPINE WITH AND WITHOUT CONTRAST 04/25/16 IMPRESSION: 1. Increased L4-5 marrow and intervertebral disc space edema and enhancement when compared with the study dated 03/26/16 in addition to increased enhancement within the L4-5 paraspinous soft tissues. These findings are highly suspicious for acute osteomyelitis/discitis. 2. Increased L2-L3 marrow enhancement and subtle enhancement within the intervertebral disc space suspicious for multilevel discitis/osteomyelitis. These findings were discussed with Dr. Mitchell at 2:22 PM on 04/25/16. Dictated by: Jenna Cote M.D. on 04/25/2016 at 14:19 Approved by: Jenna Cote M.D. on 04/25/2016 at 14:32 Cardiac Echo Impressions Echocardiogram Report Name: ISAIAH BERNABE Study Date: 04/26/2016 Height: 72 in Hospital Exam Location: [facility] Weight: 224 lb Gender: Male BSA: 2.2 m2 : 1950 Age: 65 yrs BP: 150/74 mmHg Reason For Study: SEPSIS Ordering Physician: HOSPITALIST [facility] Performed By: Kristy Palacios Referring Physician: Dr. Delta Mitchell Interpretation Summary 1. Normal left ventricular size, wall thickness and systolic function with an estimated EF of 60-65% 2. Upper limits of normal right ventricular size with normal systolic function. 3. No obvious vegetations appreciated in the sampled views of the cardiac valves. No valvular regurgitation to suggest valvular destruction secondary to infection Assessment & Plan Isaiah Bernabe is a 65 year old male with Follicular lymphoma in remission and Hypertension who presents to [facility] emergency department `due to extreme diffuse lower back pain. 1. Acute Lumbar pain due to Osteomyelitis. Present on admission Discussion with Neurosurgery at on admission, no recommendation for surgery but continue antibiotics. Differential diagnosis includes Goldstein disease, Metastatic cancer, Multiple Myeloma. - continuing Vancomycin for Staph coverage and changing to Ampicillin for Strep coverage. - Blood cultures Growing Gram Positive Cocci, ID and Sensitivities are pending. - consult with Infectious disease when available concerning duration and de escalation of antibiotics, anticipating 6 weeks of treatment IV beginning on 04/25. - transfer to [facility] if worsening: he is improving though he is still unable to move freely. Hold PICC line till he has 3 days of clean cultures. He had blood cultures yesterday. So, he can get a picc tomorrow. -- based on strep bovis sensitive to both ampicillin and vanc, vanc is discontinued today. Plan to give 8 weeks of therapy. Echo ruled out valve vegetations. 2. Sepsis. Present on admission Meeting SIRS criteria with tachycardia and Fever. Source of infection is Osteomyelitis - IV fluids can now be stopped. 3. Acute Hyponatremia. Present on admission Etiology unclear but suspect extra renal salt loss - REsolved 4. 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 Hypertension - continue Losartan 50 mg daily - Heart healthy diet - Acetaminophen as needed for mild pain/fever/headache - Bowel regimen as needed - Antiemetic as needed Patient admitted under inpatient status with expected length of stay > 2 midnights for severity of present symptoms, complexities of treatment plan and risk for adverse event. . Pain Evaluation: Adequate Pain Control VTE Prophylaxis: Sub-Q Heparin (Unfractionated) VTE Mechanical Devices: Intermittant Pneumatic CD Resuscitation Status: CPR: Attempt Resuscitation Caryl Davey DO Apr 28, 2016 05:56
[2016-04-28 06:36] LABS: Mean Corpuscular Hemoglobin 26.7 pg (27.0-35.0); Mean Corpuscular Volume 81.6 fL (81-100)
[2016-04-28] MEDS: Vancomycin Dose per Pharmacist XX SCH (08:30)
[2016-04-28] MEDS: Vancomycin Inj 2,000 MG in 0.9% Sodium Chloride 500 ML IV SCH (10:12)
[2016-04-28] MEDS: HYDROmorphone PCA 0.2 mg/mL 30 mL Inj IV PRN (10:12)
--- NOTE | 2016-04-28 17:38 | NUR ---
Pain Management Patient managed pain with MARRIAGE AND FAMILY THERAPIST Dilaudid ..6. Talked with patient regarding moving to PO pain medications. Patient will try PO pain medications this evening and through operations supervisor 2nd shift. Denied nausea this shift. Patient repositions self for comfort. Call light and tray table within reach. Will continue to monitor patient hourly.
[2016-04-28] MEDS ORDERED: Vancomycin Serum Trough XX ONE (20:00)
[2016-04-28] MEDS ORDERED: HYDROmorphone 0.5 mg/0.5 mL iSecure Syringe IVPUSH PRN ×2 (20:20→20:25)
[2016-04-29] VITALS (9 sets, daily range): BP systolic 149–152; BP diastolic 80–86; PULSE 92–102; RESP 16–20; O2SAT 95–98
[2016-04-29] MEDS: Sodium Chloride LOK Flush 10 mL Syringe IVFLUSH SCH ×3 (00:30→16:30)
[2016-04-29] MEDS: Heparin 5,000 Unit/mL Inj SUBQ SCH ×2 (00:43→11:01)
[2016-04-29] MEDS: 0.9% Sodium Chloride 1,000 ML IV SCH ×2 (01:54→12:39)
[2016-04-29] MEDS: Ampicillin Inj 2,000 MG in 0.9% Sodium Chloride 100 ML IV SCH ×2 (04:07→09:24)
--- NOTE | 2016-04-29 06:18 | NUR ---
Pain Patient stated pain 6/10 on pain scale. Encouraged patient to try PO pain medication Patient agreed. Oxycodone administered. ON reassessment, patient stated pain was under control at a 2-3/10. Four hours later, patient requested going back to using LINE THERAPIST pump for night time relief of pain. Total LINE THERAPIST for shift was 0.6 mg. VSS. Call light within reach. Patient resting comfortably. Care continues.
[2016-04-29 08:19] LABS: BASOPHILS % (AUTO) 0.6 % (0-3); EOSINOPHILS % (AUTO) 2.6 % (0-5); MONOCYTES % (AUTO) 11.9 % (4-12); Mean Corpuscular Hemoglobin 27.3 pg (27.0-35.0); Mean Corpuscular Volume 82.6 fL (81-100); NEUTROPHILS % (AUTO) 72.3 % (40-74); Platelet Count 382 bil/L (150-400)
[2016-04-29] MEDS ORDERED: Sodium Chloride LOK Flush 10 mL Syringe IVFLUSH PRN ×2 (11:40)
--- NOTE | 2016-04-29 12:24 | CONS ---
[address] [address] CONSULTATION REPORT PATIENT: ALIREZA BERNABE : 1950 MR#: [id number] ADMIT: 04/25/2016 JOB ID: [id number] DATE OF SERVICE: 04/29/2016 INFECTIOUS DISEASE CONSULT: I thank Dr. Caryl Davey for this timely consultation. 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 He was initially evaluated with an MRI scan of the back about one month ago which was negative. At that point, he was recommended to try and increase ambulation and do conservative care for his worsening lumbar spine pain. Unfortunately, the pain continued and was basically unrelenting which led to a repeat MRI scan that was done on April 25 which showed vertebral osteomyelitis and diskitis. This subsequently triggered this admission and the obtaining of blood cultures which have subsequently grown Strep bovis. The patient tells us that aside from the progressive back pain over the past couple of months, which has been really incapacitating for the last month or so, he has otherwise felt relatively well. He and his tell us that he may have had some subtle fevers but no overt chills or night sweats. He has not had weight loss or other pronounced constitutional symptoms, and has not had any significant headache, pulmonary, or cardiac symptomatology. He has not had any colon symptoms either such as nausea, vomiting, diarrhea, or melena. The patient has had consistent problems with his right knee which has been swelling and giving him problems for a year or more. He has been advised that he may require a right knee replacement because of progressive osteo but he notes in the last month or two, during about the same period of time that his back has been getting worse, that that knee has been more painful and swollen as well. PAST MEDICAL HISTORY: 1. The patient had lymphoma diagnosed about six years ago, and he has been in complete remission for three years. He is followed by Dr. Abad. 2. Hypertension. 3. Herpes simplex with chronic acyclovir suppression. 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 FAMILY HISTORY: Negative for tuberculosis in his parents, siblings and children. REVIEW OF SYSTEMS: Done. The patient has no headache, no visual complaints, no sore throat or dysphagia. No odynophagia. No stiff neck. No cough, shortness of breath, chest pain, nausea, vomiting, diarrhea, dysuria, urgency, or frequency. He has progressive swelling and difficulty walking on the right knee which is pronounced over the last couple of months. There has not been swelling or dysfunction of other joints. He denies any focal neurologic complaint such as weakness, bowel or bladder problems. He has not lost any significant weight and has a questionable history of fevers as noted, though not documented. Remainder of the review of systems negative. PHYSICAL EXAMINATION: Reveals an afebrile gentleman, temperature 36.8. Note that when he first came in back on April 25 he had a pronounced temperature of 39.1 and has basically been afebrile over the last three days. His pulse is in the 90s, respiratory rate 18 and nonlabored, blood pressure 152/80, saturating well on room air. The patient is alert, oriented, pleasant and able to supply an excellent history. His is with him in the room. Examination of the head reveals no temporal wasting or trauma, the eyes without scleral icterus or conjunctivitis. The patient has does not have conjunctival hemorrhages. Nose and oral cavity are unremarkable. No thrush, hairy leukoplakia, pharyngitis, or bad dentition is noted. Neck is supple without adenopathy. No cervical or supraclavicular lymphadenopathy noted. Lungs: Quite clear. Cardiac tones: Regular rate and rhythm, without any murmurs, rubs, or gallops. The abdomen is soft, without organomegaly. Specifically, no hepatosplenomegaly. He does not have a Garcia catheter nor does he have suprapubic distention. His joints are unremarkable except for his right knee, which is quite swollen and minimally warmer than the left knee. He has reduced range of motion of that damaged or chronically arthritic right knee. The patient has intact sensation and motor strength throughout including excellent strength in his lower extremities. There is no skin rash noted anywhere, and no peripheral stigmata of endocarditis are noted on his hands and specifically, no Janeway or Osler type lesions. As noted, the patient is neurologically intact. No thyroid abnormalities are noted. LABORATORIES: Include white count 6900 with basically normal diff. Sedimentation rate is 70 on admission and 1 today which makes no sense. His CRP, however, is 21, which is over 40 times normal. Glucose 118. LFT entirely normal. Procalcitonin was done on admission, 0.25, and this is not a good test to follow with a localized infection. His urinalysis without white cells and without hematuria. Blood cultures in 6/6 bottles yielded Strep bovis, which has a penicillin JIMMY of 0.12. It is also sensitive, of course, to vancomycin, as well as ceftriaxone, and ceftriaxone has an JIMMY of less than 0.5. Followup blood cultures from the 5th are negative, and we are going to be repeating some additional blood cultures today which should complete our selection of blood cultures. An echocardiogram has already been obtained. It did not show any valvular lesions, and he did have a normal ejection fraction on that study. IMAGING: Includes a chest x-ray on admission which was basically negative and the MRI scans. The normal MRI scan was done March 26 which is about when his problems became more severe. On April 21 it is notable that he also had an x-ray of his knee which showed bilateral osteoarthritis including especially the right medial knee. A right knee joint effusion was seen. The patient's second MRI scan was done April 25, and this is the one which showed the abnormalities including L2-3 marrow enhancement consistent with osteomyelitis, as well as diskitis seen in L2, 3, 4, 5 areas. Mild canal stenosis is seen. IMPRESSION: This is an extremely unusual case of a gentleman who clearly has lumbar spine vertebral osteomyelitis and associated diskitis. This in and of itself is not surprising but the organism isolated from all those blood cultures is most unusual. A Medline search performed shows there have only been about a half a dozen cases of Streptococcus bovis vertebral osteomyelitis ever reported, and it appears that all of these are associated with endocarditis which is my concern here. The finding of Streptococcus bovis in 6/6 blood cultures always raises strong suspicions for either endocarditis, colon cancer, or both. This patient will require a more extensive evaluation of his heart including a transesophageal echocardiography to make absolutely sure he does not have Streptococcus bovis endocarditis, which I am quite concerned about at this point. He will also require a repeat colonoscopy to compare to the one he had seven or eight years ago and make sure he does not have a colon malignancy or other notable colon process. Also of concern here is his left knee, which is quite swollen and a bit warm. We have an x-ray from a couple of weeks ago that shows an effusion, and I think it is probably reasonable to repeat an x-ray of the knee and make sure there is still no effusion but assuming that is the case his knee should be aspirated and sent for culture, as it may, in fact, also have Streptococcus bovis present. If there is Streptococcus bovis in the knee, it would further an increase my concern about endocarditis, as it would apply prolonged bacteremia with seeding in multiple sites. The optimal therapy for Streptococcus bovis vertebral osteomyelitis is, of course, unknown, as there have only been a half a dozen reported cases. I would be inclined to treat this patient as if he had a Streptococcus bovis endocarditis with at least six weeks of intravenous antibiotics. One could consider using a combination of a beta lactams plus aminoglycoside but I think the risk of such a combination may exceed any potential benefit. I would prefer to go ahead with six weeks of IV beta lactam, which could be penicillin or ceftriaxone. The patient and his tell me they will not be able to afford intravenous antibiotics at home and it will be difficult for them to come in multiple times a day for infusions of penicillin or ampicillin, so I think as we get more data about this patient, will probably switch to ceftriaxone and have the patient and his come back every day for an infusion of ceftriaxone throughout the course of therapy. RECOMMENDATIONS: 1. Repeat blood cultures x2 today. 2. The patient is cleared for a PICC line, as his blood cultures are now negative x2 days. 3. We will go ahead and discontinue the ampicillin he is receiving and instead switch to ceftriaxone, as this will be much easier for the patient. 4. A transesophageal echo is indicated in this patient. 5. The patient will also require colonoscopy. Whether or not that should be done while he is an inpatient or not will be at the discretion of the hospitalist but it would not in and of itself be a bad idea to get the colonoscopy done while he is here as well. Thank you very much for involving me in this fascinating case.
--- NOTE | 2016-04-29 16:04 | DRSVH ---
PROCEDURE: X-RAY RIGHT KNEE, THREE VIEWS ([id number]) INDICATIONS: septic joint?? TECHNIQUE: 3 views of the knee were acquired. COMPARISON: None. FINDINGS: Bones: No fractures or dislocations. No suspicious bony lesions. Severe narrowing of the medial fe moral tibial joint and otherwise there is moderate lateral and patellofemoral knee joint narrowing. T ricompartmental osteophyte formation. Soft tissues: Small joint effusion. No suspicious soft tissue calcifications. IMPRESSION: 1. Tricompartmental knee joint degeneration, severe bony medial femoral tibial joint. 2. Small joint effusion. 3. Although no bony erosions are identified, plain film radiography is relatively insensitive in the acute phases of osteomyelitis and may not demonstrate radiographic changes for 15 days. If acute ost eomyelitis is of clinical concern, nuclear medicine regional bone scan or MRI is recommended. 1. Dictated by: Viktor BRAR Interpreted: Ramya Acevedo MD on 04/29/2016 at 16:03 Transcribed by: LUCAS on 04/29/2016 at 16:04 Approved by: Ramya Acevedo MD, PhD on 04/30/2016 at 11:04
--- NOTE | 2016-04-29 16:47 | DRSVH ---
PROCEDURE: X-RAY PICC LINE PLACEMENT BY NURSE ([id number]) INDICATIONS: septic joint?? COMPARISON: None. FINDINGS: PICC was placed by the intravenous therapy team from the right side. Fluoroscopic spot fi lm demonstrates tip projected over the lower SVC. IMPRESSION: Tip of PICC projected over the lower SVC . Dictated by: Viktor BRAR Interpreted: Ramya Acevedo MD on 04/29/2016 at 16:47 Transcribed by: LUCAS on 04/29/2016 at 16:47 Approved by: Ramya Acevedo MD, PhD on 04/30/2016 at 11:05
--- NOTE | 2016-04-29 17:52 | NUR ---
SNF Choice List Provided Kenia Lyons MSW
--- NOTE | 2016-04-29 17:53 | NUR ---
Social Work- Readiness for Discharge Data: EMR reviewed. Pt is on day 4 of hospitalization for osteomyelitis per H&P. PT is recommending SNF at this time. SW spoke with pt and at bedside regarding SNF placement for PT needs and IV abx. SW explained PT SNF recommendation. SNF Choice List Provided. Pt and are hesitant for SNF placement, unwilling to make SNF choice at this time. Pt and hopeful for pt to come to [facility] daily for IV abx. SW will follow up in the morning regarding SNF choice or [facility]. SW continue to follow. Assessment: Pt who will discharge with IV abx. Plan: PT recommending SNF at this time. SW to follow up with pt and regarding SNF choice or confirmation of [facility] outpatient services. SW will continue to follow. VIRGINIA Goyal
--- NOTE | 2016-04-29 18:13 | NUR ---
Activity Patient up to chair with 2 person assist with FWW. PICC line placed. Patient stood and transferred from bed to PICC bed. Pain controlled with SALES AND MARKETING INTERN. Denies nausea this shift. Family at bedside most the day. Call light and tray table within reach. Will continue to monitor patient hourly.
--- NOTE | 2016-04-29 19:56 | PCM.PNMED ---
Subjective Date of Service Apr 29, 2016 Subjective Patient says he had no fevers or chills overnight, denies nausea. Endorsing some constipation. He was able to move around more today biut as a result he ended up using the pain pump more. He is asking for [facility] for rehab. Dr. Nelson has seen him today, he also got a PICC line. Exam Vital Signs Vital Sign - Last Date Time Temp Pulse Resp B/P Pulse Ox O2 Delivery O2 Flow Rate FiO2 04/29/16 17:55 18 98 04/29/16 15:03 36.3 102 152/86 Room Air Intake and Output 04/28/16 04/28/16 04/29/16 Cumulative From/Thru 15:00 23:00 07:00 04/25/16 14:49 - 04/29/16 06:28 Intake Total 3972 ml 2711 ml 78143 ml Output Total 1475 ml 3450 ml 12499 ml Balance 2497 ml -739 ml 6044 ml Intake Oral 2000 ml 1236 ml 7365 ml IV Total 1972 ml 1475 ml 9559 ml Output Urine Total 1475 ml 3450 ml 50386 ml # Bowel Movements 0 IVs and Medications IV Fluids None Medications Reviewed: Medications were reviewed in detail Lab and Diagnostics Result Diagram: 04/29/16 0720 04/29/16 0720 X-Rays, CTs and MRIs MRI LUMBAR SPINE WITH AND WITHOUT CONTRAST 04/25/16 IMPRESSION: 1. Increased L4-5 marrow and intervertebral disc space edema and enhancement when compared with the study dated 03/26/16 in addition to increased enhancement within the L4-5 paraspinous soft tissues. These findings are highly suspicious for acute osteomyelitis/discitis. 2. Increased L2-L3 marrow enhancement and subtle enhancement within the intervertebral disc space suspicious for multilevel discitis/osteomyelitis. These findings were discussed with Dr. Mitchell at 2:22 PM on 04/25/16. Dictated by: Jenna Cote M.D. on 04/25/2016 at 14:19 Approved by: Jenna Cote M.D. on 04/25/2016 at 14:32 [facility] Diagnostic [place] [address] Patient Name: ISAIAH BERNABE MR#: [id number] Location: [facility] Ordering Phys: Durga Nelson MD Date of Service: 04/29/16 1138 Caution: Report not yet finalized and possibly incomplete! PROCEDURE: X-RAY RIGHT KNEE, THREE VIEWS ([id number]) INDICATIONS: septic joint?? TECHNIQUE: 3 views of the knee were acquired. COMPARISON: None. FINDINGS: Bones: No fractures or dislocations. No suspicious bony lesions. Severe narrowing of the medial femoral tibial joint and otherwise there is moderate lateral and patellofemoral knee joint narrowing. Tricompartmental osteophyte formation. Soft tissues: Small joint effusion. No suspicious soft tissue calcifications. IMPRESSION: 1. Tricompartmental knee joint degeneration, severe bony medial femoral tibial joint. 2. Small joint effusion. 3. Although no bony erosions are identified, plain film radiography is relatively insensitive in the acute phases of osteomyelitis and may not demonstrate radiographic changes for 15 days. If acute osteomyelitis is of clinical concern, nuclear medicine regional bone scan or MRI is recommended. 1. Dictated by: Viktor Guardado RRA Interpreted: Ramya Acevedo MD on 04/29/2016 at 16:03 Transcribed by: LUCAS on 04/29/2016 at 16:04 Cardiac Echo Impressions Echocardiogram Report Name: ISAIAH BERNABE Study Date: 04/26/2016 Height: 72 in Hospital Exam Location: [facility] Weight: 224 lb Gender: Male BSA: 2.2 m2 : 1950 Age: 65 yrs BP: 150/74 mmHg Reason For Study: SEPSIS Ordering Physician: HOSPITALIST [facility] Performed By: Kristy Palacios Referring Physician: Dr. Delta Mitchell Interpretation Summary 1. Normal left ventricular size, wall thickness and systolic function with an estimated EF of 60-65% 2. Upper limits of normal right ventricular size with normal systolic function. 3. No obvious vegetations appreciated in the sampled views of the cardiac valves. No valvular regurgitation to suggest valvular destruction secondary to infection Assessment & Plan Isaiah Bernabe is a 65 year old male with Follicular lymphoma in remission and Hypertension who presents to [facility] emergency department `due to extreme diffuse lower back pain. 1. Acute Lumbar pain due to Osteomyelitis. Present on admission Discussion with Neurosurgery at on admission, no recommendation for surgery but continue antibiotics. Differential diagnosis includes Goldstein disease, Metastatic cancer, Multiple Myeloma. - continuing Vancomycin for Staph coverage and changing to Ampicillin for Strep coverage. - Blood cultures Growing Gram Positive Cocci, ID and Sensitivities are pending. - consult with Infectious disease when available concerning duration and de escalation of antibiotics, anticipating 6 weeks of treatment IV beginning on 04/25. [facility]: he is improving though he is still unable to move freely. Hold PICC line till he has 3 days of clean cultures. He had blood cultures yesterday. So, he can get a picc tomorrow.() -- based on strep bovis sensitive to both ampicillin and vanc, vanc is discontinued today. Plan to give 6-8 weeks of therapy. Echo ruled out valve vegetations. -- Dr. Nelson changed his antibiotic to Ceftriaxone for ease of administration. A repeat echo and repeat knee x-rays were ordered. 2. Sepsis. Present on admission Meeting SIRS criteria with tachycardia and Fever. Source of infection is Osteomyelitis - IV fluids can now be stopped. 3. Acute Hyponatremia. Present on admission Etiology unclear but suspect extra renal salt loss - REsolved 4. Follicular lymphoma, in remission call center consultant Oncology did not think his current findings are related to his Lymphoma - follow up with Oncology as outpatient 5. Hypertension - continue Losartan 50 mg daily - Heart healthy diet - Acetaminophen as needed for mild pain/fever/headache - Bowel regimen as needed - Antiemetic as needed Disposition: Patient may be able to d/c 1-2 days with the PICC line for 8 weeks of antibiotics. . Pain Evaluation: Adequate Pain Control VTE Prophylaxis: Sub-Q Heparin (Unfractionated) VTE Mechanical Devices: Intermittant Pneumatic CD Resuscitation Status: CPR: Attempt Resuscitation Caryl Davey DO Apr 29, 2016 19:56
[2016-04-29] MEDS: cefTRIAXone Inj 2,000 MG in Dextrose 5% Minibag Plus 50 ML IV SCH (20:41)
[2016-04-29] MEDS ORDERED: 0.9% Sodium Chloride 250 ML ONE (23:23)
[2016-04-29] MEDS ORDERED: ASPI81TA3 PO (23:39)
[2016-04-30] MEDS: Sodium Chloride LOK Flush 10 mL Syringe IVFLUSH SCH (00:30)
--- NOTE | 2016-04-30 03:34 | NUR ---
PERSONNEL ASSOCIATE DC'D: PERSONNEL ASSOCIATE discontinued as per MD orders. Given 5 mg of Roxicodone at HS, pt. resting in bed comfortable, no c/o pain at rest. Voiding per urinal. On going care.
[2016-04-30 05:30] VITALS: BP 150/82; PULSE 83; RESP 20; O2SAT 95
[2016-04-30 06:30] LABS: BASOPHILS % (AUTO) 0.8 % (0-3); EOSINOPHILS % (AUTO) 2.3 % (0-5); MONOCYTES % (AUTO) 12.2 % (4-12); Mean Corpuscular Volume 82.6 fL (81-100); NEUTROPHILS % (AUTO) 71.3 % (40-74); Platelet Count 389 bil/L (150-400)
[2016-04-30 07:06] LABS: ERYTHROCYTE SEDIMENTATION RATE 75 mm/hr (0-30)
--- NOTE | 2016-04-30 08:48 | NUR ---
Social Work Note: Received phone call from pt.'s spouse Aixa ph# [phone] re: d/c plan. Pt. and spouse have decided that they would like pt. to go to SNF. [facility] SN[facility] choice is [facility]. Placed call to Roxann requesting that she provide access to [facility]. Also placed call to Christelle at [facility] with referral. P: Anticipate d/c to [facility] when medically stable. VIRGINIA Tipton
--- NOTE | 2016-04-30 09:02 | NUR ---
Gave access and faxed facesheet to [facility] per [employer]IES MA[employer]GER
--- NOTE | 2016-04-30 09:46 | PROG NOTE ---
[address] [address] PROGRESS NOTE PATIENT: ALIREZA BERNABE : 1950 MR#: [id number] ADMIT: 04/25/2016 JOB ID: [id number] DATE: 04/30/2016 INFECTIOUS DISEASE FOLLOWUP NOTE: REASON FOR FOLLOWUP: High-grade Strep bovis bacteremia, with vertebral osteomyelitis and possible endocarditis. INTERVAL HISTORY: Overnight, the patient has been feeling reasonably well. He has no fevers, chills, or sweats. He continues to have back pain. His right knee, he reports, is chronically swollen and warmer than the left knee, and he is awaiting knee replacement once his infectious problems are solved with respect to that knee. He does not think that the knee is significantly different than it has been in past weeks. PHYSICAL EXAMINATION: Reveals an afebrile gentleman. Temperature 37.1. Note that the only temperature of the hospital stay was on April 25 when he was admitted, and his temperature was 39.1. Pulse is now 83, respiratory rate 20, blood pressure 150/82, saturating well on room air. In no acute distress. Mental status is clear. Oral cavity negative. Lungs clear. Cardiac tones: Without significant murmur. Abdomen is benign. The patient's right knee is swollen as opposed to the left knee but he does have a fair range of motion to about 45 degrees which he states is about where it has been recently. That range of motion is painless and though his knee is a little bit warmer on the right than the left it does not appear to be septic. LABORATORIES: Include white count 6100, diff is basically normal. Sed rate is in the 70s. Yesterday's sed rate of 1 was a lab error. Creatinine is 1.08, which has gone up significantly since admission, as it started out at about 0.6 and it is now almost doubled. LFT are normal. Albumin 2.4. He was on vancomycin earlier, of course, but that has been discontinued. Urine without pyuria. All admission blood cultures grew Strep bovis, and that Strep bovis is exquisitely sensitive to both penicillin and ceftriaxone. Interestingly, this particular isolate appears even more susceptible to ceftriaxone than penicillin. Followup blood cultures are all negative. IMAGING: Includes the x-ray we ordered yesterday of the right knee which shows severe joint degeneration with a small effusion and no evidence for osteomyelitis. The chest x-ray done previously showed clear lungs. IMPRESSION: This is a very strange case of a gentleman who presented with an extremely high-grade Streptococcus bovis bacteremia. He also has vertebral osteomyelitis, and Streptococcus bovis has only been identified as a cause of vertebral osteomyelitis a handful of times in the literature. 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 So far, we have a transthoracic echo which is negative but we know this is of low sensitivity, and I think it is incumbent upon us to get a transesophageal echocardiography in this patient. I have discussed this with Dr. Cruz earlier this morning. As for his antibiotics, ceftriaxone will be the appropriate choice, and it should be continued 6-8 weeks with close followup on his CRP. Whether or not he gets his IV antibiotics at home or in rehab will not make any difference but if he does get antibiotics at home, it sounds like for financial reasons he will need to get them daily in the [facility]. RECOMMENDATIONS: 1. We await the MICHAELA. 2. We await the further maturation of the pending blood cultures. 3. I see no indication to tap his right knee at this time. 4. Total duration of antibiotics will be 6-8 weeks with weekly followup including CBC, chem panel, and CRP.
[2016-04-30] MEDS: Senna-Docusate 8.6-50 mg Tablet PO SCH ×2 (11:45→22:15)
[2016-04-30] MEDS: Polyethylene Glycol (PEG) 17 Gm Powder PO PRN (11:45)
[2016-04-30] MEDS: cefTRIAXone Inj 2,000 MG in Dextrose 5% Minibag Plus 50 ML IV SCH (11:47)
[2016-04-30 13:10] VITALS: BP 135/77; PULSE 93; RESP 19; O2SAT 96
--- NOTE | 2016-04-30 16:02 | NUR ---
Activity/Pain Pt up with PT, and up to bedside chair for the afternoon. Tolerated activity well 1PA FWW. Pain has been controlled at a tolerable level with po pain medication. Care continues.
--- NOTE | 2016-04-30 17:40 | PCM.PNMED ---
Subjective Date of Service Apr 30, 2016 Subjective Patient is in good spirits, he is chatting with . He was able to sit up and take a shower. He is no longer using the pain pump, feels his pain is well controlled. His R knee is swollen but this does not appear to be a new problem as he says he has been considering a knee replacement for some time. He feels his right ankle is swollen. Denies fevers, chills, nausea, visual disturbances. He did have a slight headache but it resolved after a brief period. Denies photophobia. Exam Vital Signs Vital Sign - Last Date Time Temp Pulse Resp B/P Pulse Ox O2 Delivery O2 Flow Rate FiO2 04/30/16 13:38 Room Air 04/30/16 13:10 37.0 93 19 135/77 96 Intake and Output 04/29/16 04/29/16 04/30/16 Cumulative From/Thru 15:00 23:00 07:00 04/25/16 14:49 - 04/30/16 06:08 Intake Total 1520 ml 649 ml 54417 ml Output Total 1550 ml 80975 ml Balance -30 ml 649 ml 6663 ml Intake Oral 1520 ml 8885 ml IV Total 649 ml 20767 ml Output Urine Total 1550 ml 05162 ml # Bowel Movements 0 Exam General: NAD HEENT: NCAT Heart: Negative for murmurs, RRR Lungs: CTA anteriorly, neg for wheezing and crackles MSK: Unable to extend the R LE, 4/5 in R LE, 5/5 in LE. Neuro: CN II-XII intact, negative babinski's. 2/4 reflex in L patellar but none in R. Psych: Affect pleasant, mood neutral IVs and Medications IV Fluids None Medications Reviewed: Medications were reviewed in detail Lab and Diagnostics Result Diagram: 04/30/16 0600 04/30/16 0600 X-Rays, CTs and MRIs MRI LUMBAR SPINE WITH AND WITHOUT CONTRAST 04/25/16 IMPRESSION: 1. Increased L4-5 marrow and intervertebral disc space edema and enhancement when compared with the study dated 03/26/16 in addition to increased enhancement within the L4-5 paraspinous soft tissues. These findings are highly suspicious for acute osteomyelitis/discitis. 2. Increased L2-L3 marrow enhancement and subtle enhancement within the intervertebral disc space suspicious for multilevel discitis/osteomyelitis. These findings were discussed with Dr. Mitchell at 2:22 PM on 04/25/16. Dictated by: Jenna Cote M.D. on 04/25/2016 at 14:19 Approved by: Jenna Cote M.D. on 04/25/2016 at 14:32 [facility] Diagnostic [place] [address] Patient Name: ISAIAH BERNABE MR#: [id number] [place] [facility] [place] Ordering Phys: Durga Nelson MD Date of Service: 04/29/16 1138 Caution: Report not yet finalized and possibly incomplete! PROCEDURE: X-RAY RIGHT KNEE, THREE VIEWS ([id number]) INDICATIONS: septic joint?? TECHNIQUE: 3 views of the knee were acquired. COMPARISON: None. FINDINGS: Bones: No fractures or dislocations. No suspicious bony lesions. Severe narrowing of the medial femoral tibial joint and otherwise there is moderate lateral and patellofemoral knee joint narrowing. Tricompartmental osteophyte formation. Soft tissues: Small joint effusion. No suspicious soft tissue calcifications. IMPRESSION: 1. Tricompartmental knee joint degeneration, severe bony medial femoral tibial joint. 2. Small joint effusion. 3. Although no bony erosions are identified, plain film radiography is relatively insensitive in the acute phases of osteomyelitis and may not demonstrate radiographic changes for 15 days. If acute osteomyelitis is of clinical concern, nuclear medicine regional bone scan or MRI is recommended. 1. Dictated by: Viktor Guardado RR Interpreted: Ramya Acevedo MD on 04/29/2016 at 16:03 Transcribed by: LUCAS on 04/29/2016 at 16:04 Cardiac Echo Impressions Echocardiogram Report Name: ISAIAH BERNABE Study Date: 04/26/2016 Height: 72 in Hospital Exam Location: [facility] Weight: 224 lb Gender: Male BSA: 2.2 m2 : 1950 Age: 65 yrs BP: 150/74 mmHg Reason For Study: SEPSIS Ordering Physician: HOSPITALIST [facility] Performed By: Kristy Palacios Referring Physician: Dr. Delta Mitchell Interpretation Summary 1. Normal left ventricular size, wall thickness and systolic function with an estimated EF of 60-65% 2. Upper limits of normal right ventricular size with normal systolic function. 3. No obvious vegetations appreciated in the sampled views of the cardiac valves. No valvular regurgitation to suggest valvular destruction secondary to infection Assessment & Plan Isaiah Bernabe is a 65 year old male with Follicular lymphoma in remission and Hypertension who presents to [facility] emergency department `due to extreme diffuse lower back pain. 1. Acute Lumbar pain due to Osteomyelitis. Present on admission Discussion with Neurosurgery at on admission, no recommendation for surgery but continue antibiotics. Differential diagnosis includes Goldstein disease, Metastatic cancer, Multiple Myeloma. - continuing Vancomycin for Staph coverage and changing to Ampicillin for Strep coverage. - Blood cultures Growing Gram Positive Cocci, ID and Sensitivities are pending. - consult with Infectious disease when available concerning duration and de escalation of antibiotics, anticipating 6 weeks of treatment IV beginning on 04/25. - transfer to [facility] if worsening: he is improving though he is still unable to move freely. Hold PICC line till he has 3 days of clean cultures. He had blood cultures yesterday. So, he can get a picc tomorrow.() -- based on strep bovis sensitive to both ampicillin and vanc, vanc is discontinued today. Plan to give 6-8 weeks of therapy. Echo ruled out valve vegetations. -- Dr. Nelson changed his antibiotic to Ceftriaxone for ease of administration. A repeat echo (this time transthoracic and repeat knee x-rays were ordered.): Knee x-ray is negative for acute findings, DJD was seen. Cardiology is contacted and they will do the TTE tomorrow. 2. Sepsis. Present on admission Meeting SIRS criteria with tachycardia and Fever. Source of infection is Osteomyelitis - IV fluids can now be stopped. 3. Acute Hyponatremia. Present on admission Etiology unclear but suspect extra renal salt loss - Resolved 4. 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 Hypertension - continue Losartan 50 mg daily - Heart healthy diet - Acetaminophen as needed for mild pain/fever/headache - Bowel regimen as needed - Antiemetic as needed Disposition: Patient may be able to d/c 1-2 days with the PICC line for 8 weeks of antibiotics. He wants to go to [facility] for rehab . Pain Evaluation: Adequate Pain Control VTE Prophylaxis: Sub-Q Heparin (Unfractionated) VTE Mechanical Devices: Intermittant Pneumatic CD Resuscitation Status: CPR: Attempt Resuscitation Caryl Davey DO Apr 30, 2016 17:39
[2016-04-30 20:05] VITALS: BP 150/84; PULSE 97; RESP 17; O2SAT 95
[2016-05-01 04:52] VITALS: BP 159/84; PULSE 82; RESP 17; O2SAT 95
[2016-05-01 05:51] LABS: BASOPHILS % (AUTO) 0.7 % (0-3); MONOCYTES % (AUTO) 12.9 % (4-12); Mean Corpuscular Hemoglobin 26.5 pg (27.0-35.0); NEUTROPHILS % (AUTO) 65.6 % (40-74); Platelet Count 387 bil/L (150-400)
[2016-05-01 06:22] LABS: ERYTHROCYTE SEDIMENTATION RATE 31 mm/hr (0-30)
[2016-05-01] MEDS: Senna-Docusate 8.6-50 mg Tablet PO SCH ×2 (08:30→18:59)
--- NOTE | 2016-05-01 08:45 | NUR ---
Patient to [facility] for transesophageal echocardiogram with Dr. Vides.He is accompanied by his . Transferred via wheelchair. Abx infusion completed and PICC line used for iv sedation.
[2016-05-01] MEDS ORDERED: Flumazenil 0.1 mg/mL 5 mL Inj IV ONE (08:55)
[2016-05-01] MEDS ORDERED: 0.9% Sodium Chloride 250 ML ONE (08:55)
--- NOTE | 2016-05-01 09:25 | PROG NOTE ---
[address] [address] PROGRESS NOTE PATIENT: ALIREZA BERNABE : 1950 MR#: [id number] ADMIT: 04/25/2016 JOB ID: [id number] DATE: 05/01/2016 INFECTIOUS DISEASE FOLLOW UP NOTE: REASON FOR FOLLOW UP: Strep bovis vertebral osteomyelitis. INTERVAL HISTORY: Overnight, the patient has developed increasing pain in his right foot. He notes that he has had off and on pain in his right foot with some limitations of motion on the right foot basically since early March and he thinks that his right foot pain started at about the same time as his back pain, though it tended to wax and wane. An x-ray was done of his right foot about a month ago that showed no significant pathology. Aside from his right foot pain, he is feeling somewhat better. His back pain continues though it is diminished. No fevers, chills or sweats. No shortness of breath or chest pain is noted. He is having no problems with his antibiotics. PHYSICAL EXAMINATION: Reveals an afebrile gentleman who has been afebrile since his first day in the hospital, almost a week ago. It is currently 36.3, blood pressure 159/84, pulse 82, respiratory rate 17. Examination of the eyes reveals no conjunctival hemorrhage. The oral cavity is without palatal petechiae. The lungs are relatively clear bilaterally. Cardiac tones still regular rate and rhythm. No murmur. Abdomen without notable abnormality. The right knee is perhaps less swollen than it has been the last few days and it is less warm I think. There is still about 45 degrees range of motion which the patient states has been fairly stable. The right foot is not warm nor is it tender but there is increased pain especially with eversion of the right foot. No Janeway or Osler lesions are noted. LABORATORIES: Include white count 7400. Sed rate is 31 down from 70s earlier. Hematocrit 31, creatinine 1.05. ALT is 61. Urinalysis without white cells. Micro studies include a course of strep bovis in the blood which was exquisitely sensitive to penicillin with a JIMMY of 0.12. The ceftriaxone JIMMY was actually better at less than 0.12. Follow up blood cultures are all negative. No new imaging has been done, though we did order a film of the right foot today. A transesophageal echo is scheduled for later this morning. 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 This is a very rare entity and I suspect that the patient has underlying endocarditis though it is still unproven and we await today's MICHAELA. His right foot pain is a concern as he states it started about the same time as his back pain and so will repeat the x-ray of the foot that was done about a month ago. I am not certain we need to proceed all the way to an MRI scan of his foot as its examination is not all that impressive, and even if he has some degree of early infection in the structures of the foot, it is likely these would be cured with the long course of antibiotics we envision for his strep bovis vertebral osteo. RECOMMENDATIONS: 1. Will continue with ceftriaxone for a plan for six weeks. 2. I have once again reviewed the literature and do not think the addition of aminoglycosides is indicated here in this patient who seems to be doing very well and has a relatively susceptible strep bovis organism. 3. A MICHAELA will be done today. 4. We have ordered a film of the foot. 5. Probable transition to rehab tomorrow with the plan to continue the ceftriaxone for a full six weeks both at rehab and then subsequently at home afterwards.
[2016-05-01] MEDS ORDERED: fentaNYL-PF 50 mCg/mL 2 mL Inj ONE (09:29)
--- NOTE | 2016-05-01 10:00 | NUR ---
Procedure completed, patient recovered, alert and oriented. Left peripheral iv flushed with NS 10cc and dressing changed. Addendum: 05/01/16 at 1130 by TERRA SANCHEZ RN Pt tx back to room via wheelchair.Report to his nurse on arrival.
[2016-05-01] MEDS: cefTRIAXone Inj 2,000 MG in Dextrose 5% Minibag Plus 50 ML IV SCH (12:21)
[2016-05-01 13:12] VITALS: BP 154/80; PULSE 97; RESP 20; O2SAT 95
--- NOTE | 2016-05-01 14:01 | PCM.DC.MED ---
Discharge Summary Date of Service May 01, 2016 Dates of Hospitalization Date of Hospital Admission Apr 25, 2016 at 19:50 Providers: Admitting Physician: Daquan Jarrell MD Primary Care Physician: Delta Mitchell MD Attending Physician: Daquan Jarrell MD Procedures XRay, CTs & MRIs MRI LUMBAR SPINE WITH AND WITHOUT CONTRAST 04/25/16 IMPRESSION: 1. Increased L4-5 marrow and intervertebral disc space edema and enhancement when compared with the study dated 03/26/16 in addition to increased enhancement within the L4-5 paraspinous soft tissues. These findings are highly suspicious for acute osteomyelitis/discitis. 2. Increased L2-L3 marrow enhancement and subtle enhancement within the intervertebral disc space suspicious for multilevel discitis/osteomyelitis. These findings were discussed with Dr. Mitchell at 2:22 PM on 04/25/16. Dictated by: Jenna Cote M.D. on 04/25/2016 at 14:19 Approved by: Jenna Cote M.D. on 04/25/2016 at 14:32 [facility] Diagnostic [place] [address] Patient Name: ISAIAH BERNABE MR#: [id number] Location: [facility] [place] Ordering Phys: uDrga Nelson MD Date of Service: 04/29/16 1138 Caution: Report not yet finalized and possibly incomplete! PROCEDURE: X-RAY RIGHT KNEE, THREE VIEWS ([id number]) INDICATIONS: septic joint?? TECHNIQUE: 3 views of the knee were acquired. COMPARISON: None. FINDINGS: Bones: No fractures or dislocations. No suspicious bony lesions. Severe narrowing of the medial femoral tibial joint and otherwise there is moderate lateral and patellofemoral knee joint narrowing. Tricompartmental osteophyte formation. Soft tissues: Small joint effusion. No suspicious soft tissue calcifications. IMPRESSION: 1. Tricompartmental knee joint degeneration, severe bony medial femoral tibial joint. 2. Small joint effusion. 3. Although no bony erosions are identified, plain film radiography is relatively insensitive in the acute phases of osteomyelitis and may not demonstrate radiographic changes for 15 days. If acute osteomyelitis is of clinical concern, nuclear medicine regional bone scan or MRI is recommended. 1. Dictated by: Viktor Guardado [facility] Interpreted: Ramya Acevedo MD on 04/29/2016 at 16:03 Transcribed by: LUCAS on 04/29/2016 at 16:04 Cardiac Echo Impression Echocardiogram Report Name: ISAIAH BERNABE Study Date: 04/26/2016 Height: 72 in Hospital Exam Location: [facility] Weight: 224 lb Gender: Male BSA: 2.2 m2 : 1950 Age: 65 yrs BP: 150/74 mmHg Reason For Study: SEPSIS Ordering Physician: HOSPITALIST [facility] Performed By: Kristy Palacios Referring Physician: Dr. Delta Mitchell Interpretation Summary 1. Normal left ventricular size, wall thickness and systolic function with an estimated EF of 60-65% 2. Upper limits of normal right ventricular size with normal systolic function. 3. No obvious vegetations appreciated in the sampled views of the cardiac valves. No valvular regurgitation to suggest valvular destruction secondary to infection Brief History Isaiah Bernabe is a 65 year old male with Follicular lymphoma in remission and Hypertension who presents to [facility] emergency department `due to extreme diffuse lower back pain. About a month ago he thought he threw his back out and pain became so severe he was admitted to [facility] on 03/26/16. His MRI at the time did not reveal any acute findings. He returned home two days later with slightly reduced pain. When he went home he wasn't feeling that much better. Since discharge, his pain has returned and increased in severity. He started going downhill fairly quickly after getting released from the hospital. Pt can now barely walk and needs assistance to get out of bed. Pain does not radiate, no change in bowel or bladder movements. Pt's family noticed a subjective fever 2 times in the past 2 weeks, diaphoresis at night a few times a week and complaints of feeling cold. He is having a hard time walking due knee (right knee swelling as well, scheduled to see a Orthopedic surgeon) and back pain. Denies any urinary symptoms, no coughing. Denies any further trauma to the back Case discussed with Dr Odonnell, he was in contact with Oncology and then with the oncall Neurosurgery team at . Discussion was that the patient will not need any surgical intervention but just antibiotics. There are no beds available at this time and will be admitting patient here. Patient had no leukocytosis but had fever (39.1) and tachycardia (120). Vancomycin and Zosyn IV initiated Hospital Course Isaiah Bernabe is a 65 year old male with Follicular lymphoma in remission and Hypertension who presents to [facility] emergency department `due to extreme diffuse lower back pain. 1. Acute Lumbar pain due to Osteomyelitis. Present on admission Discussion with Neurosurgery at on admission, no recommendation for surgery but continue antibiotics. Differential diagnosis includes Goldstein disease, Metastatic cancer, Multiple Myeloma. - continuing Vancomycin for Staph coverage and changing to Ampicillin for Strep coverage. - Blood cultures Growing Gram Positive Cocci, ID and Sensitivities are pending. - consult with Infectious disease when available concerning duration and de escalation of antibiotics, anticipating 6 weeks of treatment IV beginning on 04/25. - transfer to [facility] if worsening: he is improving though he is still unable to move freely. Hold PICC line till he has 3 days of clean cultures. He had blood cultures yesterday. So, he can get a picc tomorrow.() -- based on strep bovis sensitive to both ampicillin and vanc, vanc is discontinued today. Plan to give 6-8 weeks of therapy. Echo ruled out valve vegetations. -- Dr. Nelson changed his antibiotic to Ceftriaxone for ease of administration. A repeat echo (this time transthoracic and repeat knee x-rays were ordered.): Knee x-ray is negative for acute findings, DJD was seen. Cardiology is contacted and they will do the TTE tomorrow. 2. Sepsis. Present on admission Meeting SIRS criteria with tachycardia and Fever. Source of infection is Osteomyelitis - IV fluids can now be stopped. 3. Acute Hyponatremia. Present on admission Etiology unclear but suspect extra renal salt loss - Resolved 4. 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 Hypertension - continue Losartan 50 mg daily - Heart healthy diet - Acetaminophen as needed for mild pain/fever/headache - Bowel regimen as needed - Antiemetic as needed Disposition: Patient may be able to d/c 1-2 days with the PICC line for 8 weeks of antibiotics. He wants to go to [facility] for rehab . Exam Vital Signs (Last) Date Time Temp Pulse Resp B/P Pulse Ox O2 Delivery O2 Flow Rate FiO2 05/01/16 04:52 36.3 82 17 159/84 95 Room Air Test 04/25/16 17:56 04/25/16 20:22 04/26/16 01:20 04/27/16 06:32 Procalcitonin 0.25ng/mL (0.00-0.08) Hold Trevizo Top Tube Received (Received) Urine Color Yellow (YELLOW) Urine Appearance Clear (CLEAR,HAZY) Urine pH 7.0 (5.0-8.0) Urine Specific [place] 1.020 (1.003-1.035) Urine Protein Negativemg/dL (NEG,TRACE) Urine Glucose (UA) Negativemg/dL (NEGATIVE) Urine Ketones Negativemg/dL (NEGATIVE) Urine Occult Blood Negative (NEGATIVE) Urine Nitrite Negative (NEGATIVE) Urine Bilirubin Negative (NEGATIVE) Urine Urobilinogen Normalmg/dL (NORMAL) Urine Leukocyte Esterase Negative (NEGATIVE) Urine RBC 0-2/hpf (0-2) Urine WBC 0-5/hpf (0-5) Urine Epithelial Cells Occasional/hpf (NONE-MOD) Urine Crystals None seen (NONE SEEN) Urine Bacteria None/hpf (NONE-FEW) Urine Hyaline Casts None/lpf (NONE) Urine Granular Casts None seen (NONE SEEN) Urine Waxy Casts None seen (NONE SEEN) Urine Red Blood Cell Casts None seen (NONE SEEN) Urine White Blood Cell Casts None seen (NONE SEEN) Urine Mucus None seen (None Seen) Urine Trichomonas None seen (NONE SEEN) Urine Yeast None (NONE SEEN) Urinalysis Comment None Urine Culture Reflexed Not indicated Lactic Acid Level 0.8mmol/L (0.4-2.0) C-Reactive Protein 20.9mg/dL (0.0-0.5) Test 04/27/16 07:40 05/01/16 04:30 Vancomycin Level Trough 13.1mcg/mL White Blood Count 7.4th/mm3 (3.8-10.1) Red Blood Count 3.77mil/mm3 (4.40-5.80) Hemoglobin 10.0g/dL (13.8-17.2) Hematocrit 31.3% (41.0-50.0) Mean Corpuscular Volume 83.0fL (81-100) Mean Corpuscular Hemoglobin 26.5pg (27.0-35.0) Mean Corpuscular Hemoglobin Concent 31.9% (32.0-37.0) Red Cell Distribution Width 13.7% (12.3-15.4) Platelet Count 387bil/L (150-400) Neutrophils (%) (Auto) 65.6% (40-74) Lymphocytes (%) (Auto) 17.5% (14-46) Monocytes (%) (Auto) 12.9% (4-12) Eosinophils (%) (Auto) 3.0% (0-5) Basophils (%) (Auto) 0.7% (0-3) Erythrocyte Sedimentation Rate 31mm/hr (0-30) Sodium Level 137mEq/L (134-144) Potassium Level 3.7mEq/L (3.5-5.2) Chloride Level 98mEq/L (97-108) Carbon Dioxide Level 28mmol/L (18-29) Blood Urea Nitrogen 18mg/dL (8-27) Creatinine 1.05mg/dL (0.76-1.27) Estimat Glomerular Filtration Rate 75mL/min (>59) Glucose Level 97mg/dL (60-99) Calcium Level 9.2mg/dL (8.5-10.1) Total Bilirubin 0.4mg/dL (0.0-1.2) Aspartate Amino Transf (AST/SGOT) 46U/L (0-50) Alanine Aminotransferase (ALT/SGPT) 61U/L (0-44) Alkaline Phosphatase 124U/L (25-160) Total Protein 5.7g/dL (6.4-8.4) Albumin 2.6g/dL (3.4-5.0) Discharge Medications Discharge Medications Ascorbic Acid (Vitamin C) 1,000 Mg Tab.chew 1,000 MG PO DAILY (Reported) Aspirin Chew (Aspirin Chew) 81 Mg Chew 81 MG PO DAILY (Reported) Hydrochlorothiazide (Hydrochlorothiazide) 25 Mg Tablet 25 MG PO DAILY (Reported ) Ibuprofen (Ibuprofen) 400 Mg Tablet 400 MG PO BIDWM (Reported) As needed Acyclovir (Acyclovir) 800 Mg Tab 800 MG PO TID PRN PRN cold sores/herpes outbreak (Reported) Caryl Davey DO May 01, 2016 14:01
--- NOTE | 2016-05-01 14:07 | PCM.PNMED ---
Subjective Date of Service May 01, 2016 Subjective Patient states he would like to go home tomorrow AM if possible. He needs to still talk with his family. MICHAELA is neg. R foot x-ray is ordered due to concern for swelling due to osteomyelitis per ID. patient is feeling better overall looking forward to his rest of rehabilitation at [facility] Exam Vital Signs Vital Sign - Last Date Time Temp Pulse Resp B/P Pulse Ox O2 Delivery O2 Flow Rate FiO2 05/01/16 04:52 36.3 82 17 159/84 95 Room Air Intake and Output 04/30/16 04/30/16 05/01/16 Cumulative From/Thru 15:00 23:00 07:00 04/25/16 14:49 - 05/01/16 04:51 Intake Total 1200 ml 1535 ml 913 ml 65964 ml Output Total 2325 ml 950 ml 1900 ml 42490 ml Balance -1125 ml 585 ml -987 ml 5136 ml Intake Oral 1200 ml 1407 ml 800 ml 33424 ml IV Total 128 ml 113 ml 39003 ml Output Urine Total 2325 ml 950 ml 1900 ml 94065 ml # Voids 9 9 # Bowel Movements 0 0 0 0 Exam Gen.: No acute distress, laying in bed HEENT: NCAT Neuro: CN II-12 grossly normal, pharynx is within normal to order for patellar reflex is present in the left patella 0/4 right. He is able to perform finger- to-nose Heart negative for murmurs regular rate and rhythm Lungs clear to auscultation bilaterally, no obvious or crackles appreciated MSK: Decreased strength right lower extremity Skin: Swollen right knee and right foot and ankle Lab and Diagnostics Result Diagram: 05/01/16 0430 05/01/16 0430 X-Rays, CTs and MRIs MRI LUMBAR SPINE WITH AND WITHOUT CONTRAST 04/25/16 IMPRESSION: 1. Increased L4-5 marrow and intervertebral disc space edema and enhancement when compared with the study dated 03/26/16 in addition to increased enhancement within the L4-5 paraspinous soft tissues. These findings are highly suspicious for acute osteomyelitis/discitis. 2. Increased L2-L3 marrow enhancement and subtle enhancement within the intervertebral disc space suspicious for multilevel discitis/osteomyelitis. These findings were discussed with Dr. Mitchell at 2:22 PM on 04/25/16. Dictated by: Jenna Cote M.D. on 04/25/2016 at 14:19 Approved by: Jenna Cote M.D. on 04/25/2016 at 14:32 [facility] Diagnostic Imaging [place] [id number] Patient Name: ISAIAH BERNABE MR#: [id number] Location: [facility] [place] Ordering Phys: Durga Nelson MD Date of Service: 04/29/16 1138 Caution: Report not yet finalized and possibly incomplete! PROCEDURE: X-RAY RIGHT KNEE, THREE VIEWS ([id number]) INDICATIONS: septic joint?? TECHNIQUE: 3 views of the knee were acquired. COMPARISON: None. FINDINGS: Bones: No fractures or dislocations. No suspicious bony lesions. Severe narrowing of the medial femoral tibial joint and otherwise there is moderate lateral and patellofemoral knee joint narrowing. Tricompartmental osteophyte formation. Soft tissues: Small joint effusion. No suspicious soft tissue calcifications. IMPRESSION: 1. Tricompartmental knee joint degeneration, severe bony medial femoral tibial joint. 2. Small joint effusion. 3. Although no bony erosions are identified, plain film radiography is relatively insensitive in the acute phases of osteomyelitis and may not demonstrate radiographic changes for 15 days. If acute osteomyelitis is of clinical concern, nuclear medicine regional bone scan or MRI is recommended. 1. Dictated by: Viktor Guardado [facility] Interpreted: Ramya Acevedo MD on 04/29/2016 at 16:03 Transcribed by: LUCAS on 04/29/2016 at 16:04 Cardiac Echo Impressions Echocardiogram Report Name: ISAIAH BERNABE Study Date: 04/26/2016 Height: 72 in Hospital Exam Location: [facility] Weight: 224 lb Gender: Male BSA: 2.2 m2 : 1950 Age: 65 yrs BP: 150/74 mmHg Reason For Study: SEPSIS Ordering Physician: HOSPITALIST [facility] Performed By: Kristy Palacios Referring Physician: Dr. Delta Mitchell Interpretation Summary 1. Normal left ventricular size, wall thickness and systolic function with an estimated EF of 60-65% 2. Upper limits of normal right ventricular size with normal systolic function. 3. No obvious vegetations appreciated in the sampled views of the cardiac valves. No valvular regurgitation to suggest valvular destruction secondary to infection Assessment & Plan Isaiah Bernabe is a 65 year old male with Follicular lymphoma in remission and Hypertension who presents to [facility] emergency department `due to extreme diffuse lower back pain. 1. Acute Lumbar pain due to Osteomyelitis. Present on admission Discussion with Neurosurgery at on admission, no recommendation for surgery but continue antibiotics. Differential diagnosis includes Goldstein disease, Metastatic cancer, Multiple Myeloma. - continuing Vancomycin for Staph coverage and changing to Ampicillin for Strep coverage. - Blood cultures Growing Gram Positive Cocci, ID and Sensitivities are pending. - consult with Infectious disease when available concerning duration and de escalation of antibiotics, anticipating 6 weeks of treatment IV beginning on 04/25. - transfer to [facility] if worsening: he is improving though he is still unable to move freely. Hold PICC line till he has 3 days of clean cultures. He had blood cultures yesterday. So, he can get a picc tomorrow.() -- based on strep bovis sensitive to both ampicillin and vanc, vanc is discontinued today. Plan to give 6-8 weeks of therapy. Echo ruled out valve vegetations. -- Dr. Nelson changed his antibiotic to Ceftriaxone for ease of administration. A repeat echo (this time transthoracic and repeat knee x-rays were ordered.): Knee x-ray is negative for acute findings, DJD was seen. Cardiology is contacted and they will do the MICHAELA tomorrow: This is just transcribed it appears patient has no vegetations.. 2. Sepsis. Present on admission Meeting SIRS criteria with tachycardia and Fever. Source of infection is Osteomyelitis - IV fluids can now be stopped. -- Continue Rocephin per ID for 6 weeks following discharge weekly labs, CMP, CRP is to follow up with Dr. Nelson in 1 week. Results to be faxed to his fax number [phone] -- Patient is switched to by mouth pain medications 3. Acute Hyponatremia. Present on admission Etiology unclear but suspect extra renal salt loss - Resolved 4. 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 Hypertension - continue Losartan 50 mg daily - Heart healthy diet - Acetaminophen as needed for mild pain/fever/headache - Bowel regimen as needed - Antiemetic as needed Disposition: Patient may be able to d/c 1-2 days with the PICC line for 6 weeks of antibiotics. He wants to go to [facility] for rehab . VTE Prophylaxis: Sub-Q Heparin (Unfractionated) VTE Mechanical Devices: Intermittant Pneumatic CD Resuscitation Status: CPR: Attempt Resuscitation Caryl Davey DO May 01, 2016 14:07
--- NOTE | 2016-05-01 14:20 | DRSVH ---
PROCEDURE: X-RAY RIGHT ANKLE, MINIMUM THREE VIEWS ([id number]) INDICATIONS: swelling ankle in the setting of bactermia. s. Bov TECHNIQUE: 3 views of the ankle were acquired. COMPARISON: [facility], CR, XR ANKLE 3VW RT, 04/09/2016, 15:42. FINDINGS: Bones: No fractures or dislocations. Ankle mortise is normally aligned. No suspicious bony lesions . Soft tissues: No tibiotalar joint effusion. Achilles tendon appears normal. Achilles tendon calcif ication redemonstrated. Diffuse soft tissue swelling. IMPRESSION: Although no bony erosions are identified, plain film radiography is relatively insensiti ve in the acute phases of osteomyelitis and may not demonstrate radiographic changes for 15 days. If acute osteomyelitis is of clinical concern, nuclear medicine regional bone scan or MRI is recommende d. Dictated by: Viktor Guardado [facility] Interpreted: Ramya Acevedo MD on 05/01/2016 at 14:19 Transcribed by: LUCAS on 05/01/2016 at 14:20 Approved by: Ramya Acevedo MD, PhD on 05/01/2016 at 17:02
--- NOTE | 2016-05-01 15:45 | NUR ---
Social Work- Readiness for Discharge Data: EMR reviewed. Pt is on day 6 of hospitalization for osteomyelitis per H&P. Pt is not medically ready, anticipate 1-2 more days. Pt has PICC placed. Pt to discharge to [facility] to complete IV abx. [facility] accepted pt with MD Johnson to follow. Paperwork in chart. PASRR has been faxed. Pt and family updated and agreeable to plan. SW will continue to follow. Assessment: Pt who would benefit from SNF. Plan: Pt to discharge to [facility] to complete round of IV abx. [facility] accepted pt with MD Johnson to follow. Paperwork in chart. PASRR has been faxed. Pt and family updated and agreeable to plan. SW will continue to follow. VIRGINIA Goyal
--- NOTE | 2016-05-01 18:27 | DRSVH ---
[facility] [address] [place] [address] Echocardiogram Report Name: ALIREZA BERNABE Study Date: 05/01/2016 Height: 72 in Hospital Exam Location: [facility] Weight: 225 lb Gender: Male BSA: 2.2 m2 : 1950 Age: 65 yrs BP: 163/91 mmHg Reason For Study: ENDOCARDITIS Ordering Physician: Performed By: Rafa Early Referring Physician: Dr. Delta Mitchell Interpretation Summary No vegetation seen. Mild mitral regurgitation. Procedure: Informed consent for Transesophageal Echocardiogram, and use of a contrast agent as needed, was obtained prior to the procedure. The patient was brought to the [facility] in a fasting state. An intravenous line was placed. A topical anesthetic agent was used for oropharangeal anesthesia. A bite block was inserted. IV concious sedation was administered using versed and fentanyl. A multifrequency, multiplane transesopheageal echocardiographic endoscope was inserted and manipulated in the standard fashion to achieve multiplane views. The transesophageal probe was passed without difficulty. A 2D transesophageal echocardiogram with spectral and color flow Doppler was performed. Limited views were obtained. The patient's vital signs, including blood pressure, heart rate, pulse oximetry and cardiac rhythm were monitored throughout the procedure and remained stable. The patient tolerated the procedure well without evidence of orophangeal or esophageal trauma. Comparison is made with the echocardiogram of 04/26/16. The patient was in normal sinus rhythm during the exam. There were no complications. Left Ventricle: The left ventricular ejection fraction is normal. Right Ventricle: The right ventricular systolic function is normal. Mitral Valve: The mitral valve is normal. There is no vegetation seen on the mitral valve. There is mild mitral regurgitation. Aortic Valve: The aortic valve is trileaflet. The aortic valve opens well. There is no aortic valvular vegetation. There is no aortic regurgitation. Tricuspid Valve: The tricuspid valve is normal. There is no tricuspid valve vegetation. Pulmonic Valve: The pulmonic valve is normal in structure and function. There is no vegetation on the pulmonic valve. There is a trace or physiologic amount of pulmonic regurgitation. Electronically signed by: Thierry Bryant on Reading Physician:05/01/2016 06:27 PM
[2016-05-01 19:58] VITALS: BP 133/79; PULSE 61; RESP 20; O2SAT 95
[2016-05-02 04:10] VITALS: BP 157/91; PULSE 89; RESP 20; O2SAT 95
--- NOTE | 2016-05-02 05:49 | PCM.DC.MED ---
Discharge Summary Date of Service May 02, 2016 Dates of Hospitalization Date of Hospital Admission Apr 25, 2016 at 19:50 Providers: Admitting Physician: Daquan Jarrell MD Primary Care Physician: Delta Mitchell MD Attending Physician: Daquan Jarrell MD Procedures XRay, CTs & MRIs MRI LUMBAR SPINE WITH AND WITHOUT CONTRAST 04/25/16 IMPRESSION: 1. Increased L4-5 marrow and intervertebral disc space edema and enhancement when compared with the study dated 03/26/16 in addition to increased enhancement within the L4-5 paraspinous soft tissues. These findings are highly suspicious for acute osteomyelitis/discitis. 2. Increased L2-L3 marrow enhancement and subtle enhancement within the intervertebral disc space suspicious for multilevel discitis/osteomyelitis. These findings were discussed with Dr. Mitchell at 2:22 PM on 04/25/16. Dictated by: Jenna Cote M.D. on 04/25/2016 at 14:19 Approved by: Jenna Cote M.D. on 04/25/2016 at 14:32 [facility] Diagnostic [place] [address] Patient Name: ISAIAH BERNABE MR#: [id number] [place] [facility] [place] Phys: Durga Nelson MD Date of Service: 04/29/16 1138 Caution: Report not yet finalized and possibly incomplete! PROCEDURE: X-RAY RIGHT KNEE, THREE VIEWS ([id number]) INDICATIONS: septic joint?? TECHNIQUE: 3 views of the knee were acquired. COMPARISON: None. FINDINGS: Bones: No fractures or dislocations. No suspicious bony lesions. Severe narrowing of the medial femoral tibial joint and otherwise there is moderate lateral and patellofemoral knee joint narrowing. Tricompartmental osteophyte formation. Soft tissues: Small joint effusion. No suspicious soft tissue calcifications. IMPRESSION: 1. Tricompartmental knee joint degeneration, severe bony medial femoral tibial joint. 2. Small joint effusion. 3. Although no bony erosions are identified, plain film radiography is relatively insensitive in the acute phases of osteomyelitis and may not demonstrate radiographic changes for 15 days. If acute osteomyelitis is of clinical concern, nuclear medicine regional bone scan or MRI is recommended. 1. Dictated by: Viktor Guardado [facility] Interpreted: Ramya Acevedo MD on 04/29/2016 at 16:03 Transcribed by: LUCAS on 04/29/2016 at 16:04 Cardiac Echo Impression Echocardiogram Report Name: ISAIAH BERNABE Study Date: 04/26/2016 Height: 72 in Hospital Exam Location: [facility] Weight: 224 lb Gender: Male BSA: 2.2 m2 : 1950 Age: 65 yrs BP: 150/74 mmHg Reason For Study: SEPSIS Ordering Physician: HOSPITALIST [facility] Performed By: Kristy Palacios Referring Physician: Dr. Delta Mitchell Interpretation Summary 1. Normal left ventricular size, wall thickness and systolic function with an estimated EF of 60-65% 2. Upper limits of normal right ventricular size with normal systolic function. 3. No obvious vegetations appreciated in the sampled views of the cardiac valves. No valvular regurgitation to suggest valvular destruction secondary to infection Brief History Isaaih Bernabe is a 65 year old male with Follicular lymphoma in remission and Hypertension who presents to [facility] emergency department `due to extreme diffuse lower back pain. About a month ago he thought he threw his back out and pain became so severe he was admitted to [facility] on 03/26/16. His MRI at the time did not reveal any acute findings. He returned home two days later with slightly reduced pain. When he went home he wasn't feeling that much better. Since discharge, his pain has returned and increased in severity. He started going downhill fairly quickly after getting released from the hospital. Pt can now barely walk and needs assistance to get out of bed. Pain does not radiate, no change in bowel or bladder movements. Pt's family noticed a subjective fever 2 times in the past 2 weeks, diaphoresis at night a few times a week and complaints of feeling cold. He is having a hard time walking due knee (right knee swelling as well, scheduled to see a Orthopedic surgeon) and back pain. Denies any urinary symptoms, no coughing. Denies any further trauma to the back Case discussed with Dr Odonnell, he was in contact with Oncology and then with the oncall Neurosurgery team at . Discussion was that the patient will not need any surgical intervention but just antibiotics. There are no beds available at this time and will be admitting patient here. Patient had no leukocytosis but had fever (39.1) and tachycardia (120). Vancomycin and Zosyn IV initiated Hospital Course Isaiah Bernabe is a 65 year old male with Follicular lymphoma in remission and Hypertension who presents to [facility] emergency department `due to extreme diffuse lower back pain. 1. Acute Lumbar pain due to Osteomyelitis. Present on admission Discussion with Neurosurgery at on admission, no recommendation for surgery but continue antibiotics. Differential diagnosis includes Goldstein disease, Metastatic cancer, Multiple Myeloma. - continuing Vancomycin for Staph coverage and changing to Ampicillin for Strep coverage. - Blood cultures Growing Gram Positive Cocci, ID and Sensitivities are pending. - consult with Infectious disease when available concerning duration and de escalation of antibiotics, anticipating 6 weeks of treatment IV beginning on 04/25. - transfer to [facility] if worsening: he is improving though he is still unable to move freely. Hold PICC line till he has 3 days of clean cultures. He had blood cultures yesterday. So, he can get a picc tomorrow.() -- based on strep bovis sensitive to both ampicillin and vanc, vanc is discontinued today. Plan to give 6-8 weeks of therapy. Echo ruled out valve vegetations. -- Dr. Nelson changed his antibiotic to Ceftriaxone for ease of administration. A repeat echo (this time transthoracic and repeat knee x-rays were ordered.): Knee x-ray is negative for acute findings, DJD was seen. Cardiology is contacted and they will do the MICHAELA tomorrow: This is just transcribed it appears patient has no vegetations.. 2. Sepsis. Present on admission Meeting SIRS criteria with tachycardia and Fever. Source of infection is Osteomyelitis - IV fluids can now be stopped. -- Continue Rocephin per ID for 6 weeks following discharge weekly labs, CMP, CRP is to follow up with Dr. Nelson in 1 week. Results to be faxed to his fax number [phone] -- Patient is switched to by mouth pain medications 3. Acute Hyponatremia. Present on admission Etiology unclear but suspect extra renal salt loss - Resolved 4. 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 Hypertension - continue Losartan 50 mg daily - Heart healthy diet - Acetaminophen as needed for mild pain/fever/headache - Bowel regimen as needed - Antiemetic as needed Disposition: Patient may be able to d/c 1-2 days with the PICC line for 6 weeks of antibiotics. He wants to go to [facility] for rehab . Exam Vital Signs (Last) Date Time Temp Pulse Resp B/P Pulse Ox O2 Delivery O2 Flow Rate FiO2 05/02/16 04:10 36.5 89 20 157/91 95 Room Air Test 04/25/16 17:56 04/25/16 20:22 04/26/16 01:20 04/27/16 06:32 Procalcitonin 0.25ng/mL (0.00-0.08) Hold Trevizo Top Tube Received (Received) Urine Color Yellow (YELLOW) Urine Appearance Clear (CLEAR,HAZY) Urine pH 7.0 (5.0-8.0) Urine Specific Follett 1.020 (1.003-1.035) Urine Protein Negativemg/dL (NEG,TRACE) Urine Glucose (UA) Negativemg/dL (NEGATIVE) Urine Ketones Negativemg/dL (NEGATIVE) Urine Occult Blood Negative (NEGATIVE) Urine Nitrite Negative (NEGATIVE) Urine Bilirubin Negative (NEGATIVE) Urine Urobilinogen Normalmg/dL (NORMAL) Urine Leukocyte Esterase Negative (NEGATIVE) Urine RBC 0-2/hpf (0-2) Urine WBC 0-5/hpf (0-5) Urine Epithelial Cells Occasional/hpf (NONE-MOD) Urine Crystals None seen (NONE SEEN) Urine Bacteria None/hpf (NONE-FEW) Urine Hyaline Casts None/lpf (NONE) Urine Granular Casts None seen (NONE SEEN) Urine Waxy Casts None seen (NONE SEEN) Urine Red Blood Cell Casts None seen (NONE SEEN) Urine White Blood Cell Casts None seen (NONE SEEN) Urine Mucus None seen (None Seen) Urine Trichomonas None seen (NONE SEEN) Urine Yeast None (NONE SEEN) Urinalysis Comment None Urine Culture Reflexed Not indicated Lactic Acid Level 0.8mmol/L (0.4-2.0) C-Reactive Protein 20.9mg/dL (0.0-0.5) Test 04/27/16 07:40 05/01/16 04:30 Vancomycin Level Trough 13.1mcg/mL White Blood Count 7.4th/mm3 (3.8-10.1) Red Blood Count 3.77mil/mm3 (4.40-5.80) Hemoglobin 10.0g/dL (13.8-17.2) Hematocrit 31.3% (41.0-50.0) Mean Corpuscular Volume 83.0fL (81-100) Mean Corpuscular Hemoglobin 26.5pg (27.0-35.0) Mean Corpuscular Hemoglobin Concent 31.9% (32.0-37.0) Red Cell Distribution Width 13.7% (12.3-15.4) Platelet Count 387bil/L (150-400) Neutrophils (%) (Auto) 65.6% (40-74) Lymphocytes (%) (Auto) 17.5% (14-46) Monocytes (%) (Auto) 12.9% (4-12) Eosinophils (%) (Auto) 3.0% (0-5) Basophils (%) (Auto) 0.7% (0-3) Erythrocyte Sedimentation Rate 31mm/hr (0-30) Sodium Level 137mEq/L (134-144) Potassium Level 3.7mEq/L (3.5-5.2) Chloride Level 98mEq/L (97-108) Carbon Dioxide Level 28mmol/L (18-29) Blood Urea Nitrogen 18mg/dL (8-27) Creatinine 1.05mg/dL (0.76-1.27) Estimat Glomerular Filtration Rate 75mL/min (>59) Glucose Level 97mg/dL (60-99) Calcium Level 9.2mg/dL (8.5-10.1) Total Bilirubin 0.4mg/dL (0.0-1.2) Aspartate Amino Transf (AST/SGOT) 46U/L (0-50) Alanine Aminotransferase (ALT/SGPT) 61U/L (0-44) Alkaline Phosphatase 124U/L (25-160) Total Protein 5.7g/dL (6.4-8.4) Albumin 2.6g/dL (3.4-5.0) Discharge Medications Discharge Medications Ascorbic Acid (Vitamin C) 1,000 Mg Tab.chew 1,000 MG PO DAILY (Reported) Aspirin Chew (Aspirin Chew) 81 Mg Chew 81 MG PO DAILY (Reported) Ceftriaxone/Dextrose Iso-Osm (Ceftriaxone 1 gm-D5w Bag) 1 Gm/50 Ml Piggyback 2 GM IV DAILY Prescribed by: ANJALI CALDWELL DO Ibuprofen (Ibuprofen) 400 Mg Tablet 400 MG PO BIDWM Prescribed by: ANJALI CALDWELL DO Losartan Potassium (Cozaar) 25 Mg Tablet 25 MG PO DAILY Prescribed by: ANJALI CALDWELL DO As needed Acyclovir (Acyclovir) 800 Mg Tab 800 MG PO TID PRN PRN cold sores/herpes outbreak (Reported) oxyCODONE (oxyCODONE) 5 Mg Tablet 5 MG PO Q4H PRN PRN For Moderate Pain Prescribed by: DO Tamica ANTONY Aruna DO May 02, 2016 05:49
--- NOTE | 2016-05-02 05:52 | NUR ---
Pain/Constipation Patient receiving Oxycodone 5mg PO with effective results. Noted to be resting with eyes closed upon reassessments. States he hasn't had a BM in "about a week now". Receiving scheduled stool softeners. Offered PRN Miralax, but patient wanting to pass at this time.
[2016-05-02] MEDS: Senna-Docusate 8.6-50 mg Tablet PO SCH (09:28)
[2016-05-02] MEDS: Polyethylene Glycol (PEG) 17 Gm Powder PO PRN (09:29)
[2016-05-02 11:15] VITALS: BP 118/86; PULSE 104; RESP 20; O2SAT 95
[2016-05-02 12:04] VITALS: BP 151/82; PULSE 90; RESP 18; O2SAT 97
[2016-05-02] MEDS: cefTRIAXone Inj 2,000 MG in Dextrose 5% Minibag Plus 50 ML IV SCH (12:05)
--- NOTE | 2016-05-02 13:04 | PCM.DIMED ---
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 s. Bov TECHNIQUE: 3 views of the ankle were acquired. COMPARISON: [facility], CR, XR ANKLE 3VW RT, 04/09/2016, 15:42. FINDINGS: Bones: No fractures or dislocations. Ankle mortise is normally aligned. No suspicious bony lesions. Soft tissues: No tibiotalar joint effusion. Achilles tendon appears normal. Achilles tendon calcification redemonstrated. Diffuse soft tissue swelling. IMPRESSION: Although no bony erosions are identified, plain film radiography is relatively insensitive in the acute phases of osteomyelitis and may not demonstrate radiographic changes for 15 days. If acute osteomyelitis is of clinical concern, nuclear medicine regional bone scan or MRI is recommended. Dictated by: Viktor Guardado [facility] Interpreted: Ramya Acevedo MD on 05/01/2016 at 14:19 Transcribed by: LUCAS on 05/01/2016 at 14:20 Approved by: Ramya Acevedo MD, PhD on 05/01/2016 at 17:02 [facility] Diagnostic [place] [address] Patient Name: ALIREZA BERNABE MR#: [id number] Location: [facility] Ordering Phys: Durga Nelson MD Date of Service: 04/29/16 1138 PROCEDURE: X-RAY RIGHT KNEE, THREE VIEWS ([id number]) INDICATIONS: septic joint?? TECHNIQUE: 3 views of the knee were acquired. COMPARISON: None. FINDINGS: Bones: No fractures or dislocations. No suspicious bony lesions. Severe narrowing of the medial femoral tibial joint and otherwise there is moderate lateral and patellofemoral knee joint narrowing. Tricompartmental osteophyte formation. Soft tissues: Small joint effusion. No suspicious soft tissue calcifications. IMPRESSION: 1. Tricompartmental knee joint degeneration, severe bony medial femoral tibial joint. 2. Small joint effusion. 3. Although no bony erosions are identified, plain film radiography is relatively insensitive in the acute phases of osteomyelitis and may not demonstrate radiographic changes for 15 days. If acute osteomyelitis is of clinical concern, nuclear medicine regional bone scan or MRI is recommended. 1. Dictated by: Viktor BRAR Interpreted: Ramya Acevedo MD on 04/29/2016 at 16:03 Transcribed by: LUCAS on 04/29/2016 at 16:04 Approved by: Ramya Acevedo MD, PhD on 04/30/2016 at 11:04 [facility] Diagnostic [place] [address] Patient Name: ALIREZA BERNABE MR#: [id number] Location: [facility] Ordering Phys: Durga Nelson MD Date of Service: 04/29/16 1138 PROCEDURE: X-RAY PICC LINE PLACEMENT BY NURSE ([id number]) INDICATIONS: septic joint?? COMPARISON: None. FINDINGS: PICC was placed by the intravenous therapy team from the right side. Fluoroscopic spot film demonstrates tip projected over the lower SVC. IMPRESSION: Tip of PICC projected over the lower SVC . Dictated by: Viktor BRAR Interpreted: Ramya Acevedo MD on 04/29/2016 at 16:47 Transcribed by: LUCAS on 04/29/2016 at 16:47 Approved by: Ramya Acevedo MD, PhD on 04/30/2016 at 11:05 [facility] Diagnostic Imaging Department [place], [place] [id number] Patient Name: ALIREZA BERNABE MR#: [id number] Location: [facility] Ordering Phys: Ankur Tucker DO Date of Service: 04/27/16 1426 PROCEDURE: X-RAY CHEST ONE VIEW, PORTABLE ([id number]) INDICATIONS: 65-year-old male with history of follicular lymphoma, status post subclavian line placement attempt. TECHNIQUE: One view of the chest was acquired. COMPARISON: None. FINDINGS: Surgical changes and devices: None. Lungs and pleura: No pleural effusions or pneumothorax. Lungs are clear, except for linear atelectasis or scarring in the right lower lung. Mediastinum: Mediastinal contours appear normal. Heart size is normal. Bones and chest wall: No suspicious bony lesions. Overlying soft tissues appear unremarkable. IMPRESSION: No pneumothorax after subclavian line placement attempt. Dictated by: Venkatesh Vizcarra M.D. on 04/27/2016 at 14:49 Approved by: Venkatesh Vizcarra M.D. on 04/27/2016 at 14:50 Diet Heart Healthy Activity Other (Rehab PT/OT at [facility]) Call your provider Fever or Chills, Shortness of breath, Bleeding, Chest pain, Vomitting, Excessive diarrhea, Weakness (unilateral) Patient Instructions Follow-up plan follow up with Dr. Nelson in his clinic in one week Weekly labs CBC, CMP, CRP- send to Dr. Nelson's fax # [phone] follow up with attending at the [facility] jessie/speedy. Caryl Davey DO May 02, 2016 13:04
[2016-05-02] MEDS ORDERED: OXYC5TAB72 PO (13:09)
[2016-05-02] MEDS ORDERED: LOSA25TA2 PO ×2 (13:09→13:13)
[2016-05-02] MEDS ORDERED: IBUP400T22 PO (13:09)
[2016-05-02] MEDS ORDERED: CEFT1PIG IV (13:18)
--- NOTE | 2016-05-02 13:22 | PCM.DC.MED ---
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 Increased L4-5 marrow and intervertebral disc space edema and enhancement when compared with the study dated 03/26/16 in addition to increased enhancement within the L4-5 paraspinous soft tissues. These findings are highly suspicious for acute osteomyelitis/discitis. 2. Increased L2-L3 marrow enhancement and subtle enhancement within the intervertebral disc space suspicious for multilevel discitis/osteomyelitis. These findings were discussed with Dr. Mitchell at 2:22 PM on 04/25/16. Dictated by: Jenna Cote M.D. on 04/25/2016 at 14:19 Approved by: Jenna Cote M.D. on 04/25/2016 at 14:32 [facility] Diagnostic Imaging Department [place], [place] [id number] Patient Name: ISAIAH BERNABE MR#: [id number] Location: [facility] Ordering Phys: Durga Nelson MD Date of Service: 04/29/16 1138 Caution: Report not yet finalized and possibly incomplete! PROCEDURE: X-RAY RIGHT KNEE, THREE VIEWS ([id number]) INDICATIONS: septic joint?? TECHNIQUE: 3 views of the knee were acquired. COMPARISON: None. FINDINGS: Bones: No fractures or dislocations. No suspicious bony lesions. Severe narrowing of the medial femoral tibial joint and otherwise there is moderate lateral and patellofemoral knee joint narrowing. Tricompartmental osteophyte formation. Soft tissues: Small joint effusion. No suspicious soft tissue calcifications. IMPRESSION: 1. Tricompartmental knee joint degeneration, severe bony medial femoral tibial joint. 2. Small joint effusion. 3. Although no bony erosions are identified, plain film radiography is relatively insensitive in the acute phases of osteomyelitis and may not demonstrate radiographic changes for 15 days. If acute osteomyelitis is of clinical concern, nuclear medicine regional bone scan or MRI is recommended. 1. Dictated by: Viktor BRAR Interpreted: Ramya Acevedo MD on 04/29/2016 at 16:03 Transcribed by: LUCAS on 04/29/2016 at 16:04 [facility] Diagnostic [place] [address] Patient Name: ISAIAH BERNABE MR#: [id number] Location: [facility] Ordering Phys: Baltazar Chávez DO Date of Service: 05/01/16 0855 PROCEDURE: X-RAY RIGHT ANKLE, MINIMUM THREE VIEWS ([id number]) INDICATIONS: swelling ankle in the setting of bactermia. s. Bov TECHNIQUE: 3 views of the ankle were acquired. COMPARISON: [facility], CR, XR ANKLE 3VW RT, 04/09/2016, 15:42. FINDINGS: Bones: No fractures or dislocations. Ankle mortise is normally aligned. No suspicious bony lesions. Soft tissues: No tibiotalar joint effusion. Achilles tendon appears normal. Achilles tendon calcification redemonstrated. Diffuse soft tissue swelling. IMPRESSION: Although no bony erosions are identified, plain film radiography is relatively insensitive in the acute phases of osteomyelitis and may not demonstrate radiographic changes for 15 days. If acute osteomyelitis is of clinical concern, nuclear medicine regional bone scan or MRI is recommended. Dictated by: Viktor BRAR Interpreted: Ramya Acevedo MD on 05/01/2016 at 14:19 Transcribed by: LUCAS on 05/01/2016 at 14:20 Approved by: Ramya Acevedo MD, PhD on 05/01/2016 at 17:02 Cardiac Echo Impression Echocardiogram Report Name: ISAIAH BERNABE Study Date: 04/26/2016 Height: 72 in Hospital Exam Location: [facility] Weight: 224 lb Gender: Male BSA: 2.2 m2 : 1950 Age: 65 yrs BP: 150/74 mmHg Reason For Study: SEPSIS Ordering Physician: HOSPITALIST [facility] Performed By: Kristy Palacios Referring Physician: Dr. Delta Mitchell Interpretation Summary 1. Normal left ventricular size, wall thickness and systolic function with an estimated EF of 60-65% 2. Upper limits of normal right ventricular size with normal systolic function. 3. No obvious vegetations appreciated in the sampled views of the cardiac valves. No valvular regurgitation to suggest valvular destruction secondary to infection Brief History Isaiah Bernabe is a 65 year old male with Follicular lymphoma in remission and Hypertension who presents to [facility] emergency department `due to extreme diffuse lower back pain. About a month ago he thought he threw his back out and pain became so severe he was admitted to [facility] on 03/26/16. His MRI at the time did not reveal any acute findings. He returned home two days later with slightly reduced pain. When he went home he wasn't feeling that much better. Since discharge, his pain has returned and increased in severity. He started going downhill fairly quickly after getting released from the hospital. Pt can now barely walk and needs assistance to get out of bed. Pain does not radiate, no change in bowel or bladder movements. Pt's family noticed a subjective fever 2 times in the past 2 weeks, diaphoresis at night a few times a week and complaints of feeling cold. He is having a hard time walking due knee (right knee swelling as well, scheduled to see a Orthopedic surgeon) and back pain. Denies any urinary symptoms, no coughing. Denies any further trauma to the back Case discussed with Dr Odonnell, he was in contact with Oncology and then with the oncall Neurosurgery team at . Discussion was that the patient will not need any surgical intervention but just antibiotics. There are no beds available at this time and will be admitting patient here. Patient had no leukocytosis but had fever (39.1) and tachycardia (120). Vancomycin and Zosyn IV initiated Hospital Course Isaiah Bernabe is a 65 year old male with Follicular lymphoma in remission and Hypertension who presents to [facility] emergency department `due to extreme diffuse lower back pain. 1. Sepsis due to Osteomyelitis due to strep BOVIS. Present on admission: As evidenced by MRI of the lumbar spine. Patient was initially covered with vancomycin and ampicillin for staph and strep respectively. Once the blood cultures confirmed the presence of strep bovis based on the sensitivities his therapy better to ampicillin. However ID felt that ceftriaxone will be more appropriate to cover this organism. This he was switched to ceftriaxone. A total therapy of 6 weeks from the last day of negative blood cultures as planned. Patient will be receiving this is a skilled care facility for his duration. He will be following up with Dr. Nelson in his clinic in one week. Is expected to make his recovery complete at home. A transthoracic echocardiogram and the chance esophageal echocardiogram showed no evidence of vegetations in the valves. Patient is on oral pain medications for pain control. He is working with PT OT. Is tolerating normal diet. 3. Acute Hyponatremia. Present on admission Etiology unclear but suspect extra renal salt loss, this has resolved long before his discharge. 4. 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 Hypertension: Patient was asked to start on 25 mg Losartan daily Exam Vital Signs (Last) Date Time Temp Pulse Resp B/P Pulse Ox O2 Delivery O2 Flow Rate FiO2 05/02/16 12:04 36.7 90 18 151/82 97 Room Air Exam Gen.: Mild discomfort due to pain HEENT normocephalic atraumatic Neck: Negative for JVD Heart negative for S3-S4 murmurs regular rate and rhythm Lungs: Clear to auscultation, no crackles or wheezes Abdomen nontender nondistended normal bowel sounds Extremities: Swollen right knee negative for erythema, mildly swollen ankle improved from yesterday Psych: Negative for anxiety Neuro: No focal neurological deficits Test 04/25/16 17:56 04/25/16 20:22 04/26/16 01:20 04/27/16 06:32 Procalcitonin 0.25ng/mL (0.00-0.08) Hold Trevizo Top Tube Received (Received) Urine Color Yellow (YELLOW) Urine Appearance Clear (CLEAR,HAZY) Urine pH 7.0 (5.0-8.0) Urine Specific [place] 1.020 (1.003-1.035) Urine Protein Negativemg/dL (NEG,TRACE) Urine Glucose (UA) Negativemg/dL (NEGATIVE) Urine Ketones Negativemg/dL (NEGATIVE) Urine Occult Blood Negative (NEGATIVE) Urine Nitrite Negative (NEGATIVE) Urine Bilirubin Negative (NEGATIVE) Urine Urobilinogen Normalmg/dL (NORMAL) Urine Leukocyte Esterase Negative (NEGATIVE) Urine RBC 0-2/hpf (0-2) Urine WBC 0-5/hpf (0-5) Urine Epithelial Cells Occasional/hpf (NONE-MOD) Urine Crystals None seen (NONE SEEN) Urine Bacteria None/hpf (NONE-FEW) Urine Hyaline Casts None/lpf (NONE) Urine Granular Casts None seen (NONE SEEN) Urine Waxy Casts None seen (NONE SEEN) Urine Red Blood Cell Casts None seen (NONE SEEN) Urine White Blood Cell Casts None seen (NONE SEEN) Urine Mucus None seen (None Seen) Urine Trichomonas None seen (NONE SEEN) Urine Yeast None (NONE SEEN) Urinalysis Comment None Urine Culture Reflexed Not indicated Lactic Acid Level 0.8mmol/L (0.4-2.0) C-Reactive Protein 20.9mg/dL (0.0-0.5) Test 04/27/16 07:40 05/01/16 04:30 Vancomycin Level Trough 13.1mcg/mL White Blood Count 7.4th/mm3 (3.8-10.1) Red Blood Count 3.77mil/mm3 (4.40-5.80) Hemoglobin 10.0g/dL (13.8-17.2) Hematocrit 31.3% (41.0-50.0) Mean Corpuscular Volume 83.0fL (81-100) Mean Corpuscular Hemoglobin 26.5pg (27.0-35.0) Mean Corpuscular Hemoglobin Concent 31.9% (32.0-37.0) Red Cell Distribution Width 13.7% (12.3-15.4) Platelet Count 387bil/L (150-400) Neutrophils (%) (Auto) 65.6% (40-74) Lymphocytes (%) (Auto) 17.5% (14-46) Monocytes (%) (Auto) 12.9% (4-12) Eosinophils (%) (Auto) 3.0% (0-5) Basophils (%) (Auto) 0.7% (0-3) Erythrocyte Sedimentation Rate 31mm/hr (0-30) Sodium Level 137mEq/L (134-144) Potassium Level 3.7mEq/L (3.5-5.2) Chloride Level 98mEq/L (97-108) Carbon Dioxide Level 28mmol/L (18-29) Blood Urea Nitrogen 18mg/dL (8-27) Creatinine 1.05mg/dL (0.76-1.27) Estimat Glomerular Filtration Rate 75mL/min (>59) Glucose Level 97mg/dL (60-99) Calcium Level 9.2mg/dL (8.5-10.1) Total Bilirubin 0.4mg/dL (0.0-1.2) Aspartate Amino Transf (AST/SGOT) 46U/L (0-50) Alanine Aminotransferase (ALT/SGPT) 61U/L (0-44) Alkaline Phosphatase 124U/L (25-160) Total Protein 5.7g/dL (6.4-8.4) Albumin 2.6g/dL (3.4-5.0) Discharge Medications Discharge Medications Ascorbic Acid (Vitamin C) 1,000 Mg Tab.chew 1,000 MG PO DAILY (Reported) Aspirin Chew (Aspirin Chew) 81 Mg Chew 81 MG PO DAILY (Reported) Ceftriaxone/Dextrose Iso-Osm (Ceftriaxone 1 gm-D5w Bag) 1 Gm/50 Ml Piggyback 2 GM IV DAILY Prescribed by: CARYL CALDWELL DO Ibuprofen (Ibuprofen) 400 Mg Tablet 400 MG PO BIDWM Prescribed by: CARYL CALDWELL DO Losartan Potassium (Cozaar) 25 Mg Tablet 25 MG PO DAILY Prescribed by: CARYL CALDWELL DO As needed Acyclovir (Acyclovir) 800 Mg Tab 800 MG PO TID PRN PRN cold sores/herpes outbreak (Reported) oxyCODONE (oxyCODONE) 5 Mg Tablet 5 MG PO Q4H PRN PRN For Moderate Pain Prescribed by: CARYL CALDWELL DO Followup Plan Follow-up plan follow up with Dr. Nelson in his clinic in one week Weekly labs CBC, CMP, CRP- send to Dr. Nelson's fax # [phone] follow up with attending at the [facility] d/c. Discharge Diet: Heart Healthy Discharge Activity: Other (Rehab PT/OT at [facility]) Caryl Caldwell DO May 02, 2016 13:22
--- NOTE | 2016-05-02 14:17 | NUR ---
Social Work- Discharge Data: EMR reviewed. Pt is on day 7 of hospitalization for osteomyelitis per H&P. Pt to discharge today. Pt has PICC placed. Pt to discharge to [facility] to complete IV abx. [facility] agreeable to accept pt today with MD Johnson to follow. Paperwork in chart. [facility] has been faxed. Pt's to transport to [facility] in POV. UR Specialist created packet and faxed orders. SW updated family and pt at bedside. RN, UC, pt/family and [facility] all updated and agreeable to plan. Assessment: Pt who would benefit from SNF. Plan: Pt to discharge to [facility] to complete round of IV abx. [facility] accepted pt with MD Johnson to follow. Paperwork in chart. [facility] has been faxed. Pt to discharge to [facility] via POV. RN, UC, pt/family and [facility] all updated and agreeable to plan. Kenia Lyons, RN ANGIOGRAPHY
--- NOTE | 2016-05-02 16:10 | NUR ---
Discharge To [facility] with via private vehicle at 15:50. Report phoned to Lashanda at [facility].
[2016-05-19] MEDS ORDERED: LACT1CAP13 PO (08:51)
[2016-05-19] MEDS ORDERED: SENN-133 PO (08:51)
[2016-06-13] MEDS ORDERED: LACT1CAP13 PO (17:42)
[2016-06-13] MEDS ORDERED: OXYC5TAB72 PO (17:42)
[2016-06-13] MEDS ORDERED: HYDR12.55 PO (17:42)
[2016-06-13] MEDS ORDERED: ASPI-973 PO (17:42)
== END 2016-05-02 15:46 | DRG 872 ==
LOC: SED 14:45 → OSC 19:50
PROVIDERS: ADMIT Hospitalist; ATTEND Hospitalist
PROC: 05H533Z Insertion of Infusion Device into Right Subclavian Vein, Percutaneous Approach (ICD-10-PCS; principal; 2016-04-29)
DX: A41.9 Sepsis, unspecified organism (principal); M46.26 Osteomyelitis of vertebra, lumbar region; C82.90 Follicular lymphoma, unspecified, unspecified site; E87.1 Hypo-osmolality and hyponatremia; Z79.82 Long term (current) use of aspirin; I10 Essential (primary) hypertension; B95.4 Other streptococcus as the cause of diseases classified elsewhere

== ENCOUNTER 2016-06-16 13:06 | Day surgery (SDC) | payer MEDICARE, OTHER ==
[~2016-06-16] VITALS: Ht 185.4 cm; Wt 103.4 kg
[~2016-06-16 13:06] MED LIST changes: +ASPI-973 PO; -ASPI81TA3 PO; -CYCL10TA9 PO; -GLUC-123 PO; -HYDR-4003 PO; +HYDR12.55 PO; +LACT1CAP13 PO; -LOSA50TA37 PO; -NAPR250T PO; +OXYC5TAB72 PO; -PANT20TA2 PO
[2016-06-16] MEDS ORDERED: AMOX250C PO (14:04)
[2016-06-16 14:05] VITALS: BP 134/85; PULSE 87; RESP 16; O2SAT 98
[2016-06-16] MEDS ORDERED: 0.9% Sodium Chloride 1,000 ML IV PRN (14:54)
[2016-06-16] MEDS ORDERED: fentaNYL-PF 50 mCg/mL 2 mL Inj ONE (14:55)
[2016-06-16] MEDS ORDERED: Sodium Chloride LOK Flush 10 mL Syringe IV PRN (14:55)
[2016-06-16] MEDS ORDERED: fentaNYL-PF 50 mCg/mL 2 mL Inj IVPUSH PRN (14:55)
--- NOTE | 2016-06-16 15:30 | PCM.ENDCOL ---
Colonoscopy Date of Service: Jun 16, 2016 Physician Reid Lee MD Pre Procedure Diagnosis: Screening history of Streptococcus bovis Post Procedure Dx & Findings: Polyp hemorrhoids diverticula Procedure Colonoscopy PROCEDURE IN DETAIL: Prep adequate Withdrawal time 11 minutes After unremarkable rectal examination the Olympus video colonoscope was inserted patient's anal canal and was advanced to cecum. Landmarks were identified including the ileocecal valve and appendiceal orifice. Scope was withdrawn systematically. Visualized colonic mucosa showed healthy shiny mucosa with normal healthy-appearing vasculature. In the ascending colon, there were 2 polyps. They are about 1 mm. These were removed completely using cold forceps. In the sigmoid colon there are several diverticuli. However diverticuli was noted in isolation all the way up to the right colon. In the rectum retroflexion was done which showed hemorrhoids. Anal canal was inspected carefully on the way out and hemorrhoids noted. Impression Polyp 2 status post complete removal Diverticuli Hemorrhoids Recommendation Repeat colonoscopy 5 years Diverticula diet Presedation Assessment Risks and Benefits Informed consent was obtained from the patient after all risks and benefits including but not limited to drug reaction, infection, pain, bleeding, perforation, as well as alternatives were discussed. Patient monitoring Continuous pulse oximetry, cardiac monitoring, blood pressure monitoring, IV access, and oxygen at 2L per nasal cannula. Periprocedural Fentanyl: Fentanyl 100mcg Incrementally Midazolam: Midazolam 5mg Incrementally Complications There were no periprocedural complications identified. Post Procedure Plan Post Procedure Recommendations 1. Restrict activities today. 2. Resume normal activities in the morning. 3. Resume medications. 4. Patient informed of normal post procedure side effects as bloating, drowsiness, blood streaking in the stool. 5. average risk CRCS. If colon polyps come back as: -Hyperplastic- can repeat colonoscopy in 10 years -Tubular adenoma- repeat colonoscopy in 5 years -Tubulovillous/villous adenoma- repeat colonoscopy in 3 years -If any dysplasia- return to clinic as soon as possible 6. Please don't hesitate to call me with any questions. Reid Lee MD Jun 16, 2016 15:30
[2016-06-16 15:33] VITALS: BP 151/78; PULSE 86; RESP 17; O2SAT 95
[2016-06-16 15:47] VITALS: BP 142/79; PULSE 90; RESP 15; O2SAT 98
[2016-06-16 15:57] VITALS: BP 145/90; PULSE 88; RESP 15; O2SAT 97
--- NOTE | 2016-06-18 11:33 | PATH ---
SURGICAL PATHOLOGY Attending Physician:Reid Lee M.D. CASE STATUS: Signed Out PATIENT NAME: ALIREZA BERNABE PID: [id number] : 1950 DATE COLLECTED:06/16/2016 00:00 SPECIMEN: Colon, Biopsy CLINICAL HISTORY: 1. ASCENDING COLON POLYPS X2 FINAL DIAGNOSIS: Ascending colon, polyps, biopsy: Portions of tubular adenoma x2; negative for high-grade dysplasia. ICD10: K63.5 GROSS DESCRIPTION: The specimen is received in one formalin filled container labeled with the patient's name, sublabeled "ascending colon polyps x2" and consists of 2 portions of tissue which aggregate to 0.3 x 0.3 x 0.3 CM. The specimen is entirely submitted in one cassette. 06/17/2016 [facility] ICD-9 CODES: CPT CODES: 1: 42548 Electronically Signed Out Shantel Magallanes MD [facility] Pathology [facility], [place] [address] Technical component performed at [facility], [address] [place] [address] Ave[address], [place], [address]
== END 2016-06-16 23:59 | disposition home or self-care (01) ==
LOC: END 13:06
PROVIDERS: ATTEND Internal Medicine
DX: Z12.11 Encounter for screening for malignant neoplasm of colon (principal); D12.2 Benign neoplasm of ascending colon; K57.30 Diverticulosis of large intestine without perforation or abscess without bleeding; K64.8 Other hemorrhoids; Z86.010 Personal history of colon polyps; I10 Essential (primary) hypertension; Z79.82 Long term (current) use of aspirin
CPT/HCPCS: 45380; 88305; 99153; G0500; J2250; J3010; J7030

== ENCOUNTER 2016-09-15 10:25 | Inpatient (IN) | payer MEDICARE, OTHER ==
[~2016-09-15] VITALS: Ht 185.4 cm; Wt 113.9 kg
[~2016-09-15 10:25] MED LIST changes: +Bupivacaine Liposome 1.3% 20 mL Inj INFILTRATE ONE; +CeFAZolin Inj 2 GM in IV Premix 1 EACH IV SCH; -LACT1CAP13 PO; +LOSA50TA37 PO; +Lactated Ringer's 1,000 ML IV ONE; -OXYC5TAB72 PO; +Tranexamic Acid 100 mg/mL 10 mL Inj IV SCH; +Vancomycin 1 Gm/200 mL NS Premix IV ONE
[2016-09-15] MEDS ORDERED: CeFAZolin Inj 2 gm / 50mL D5W IV ONE (10:47)
[2016-09-15 11:17] VITALS: BP 131/87; PULSE 68; RESP 17; O2SAT 99
--- NOTE | 2016-09-15 12:06 | PCM.HPANE ---
Patient Data Surgeon Admitting Provider: Attending Provider:José Luis Horn MD Primary Care Physician:Delta Mitchell MD Other Provider:[facility] Anesthesia Reason for Visit Right Knee Arthritis RIGHT KNEE ARTHRITIS Ht/WT & BMI Height (Feet): 6 Height (Inches): 1 Weight (Kilograms): 110.8 Body Mass Index 32.00 Allergies Coded Allergies: Sulfa (Sulfonamide Antibiotics) (Verified Allergy, Unknown, 06/13/16) Past Anesthesia History Anesthesia History: Denies:: Abnormal Airway, Anesthesia Reactions, Difficult Intubation, Fam Anesthesia Reaction, Fam Malignant Hypertherm, Malignant Hyperthermia Diabetes History Hx Diabetes?: No MRSA MRSA: No Medications Blood Thinner: Aspirin Last Dose Blood Thinner: Sep 10, 2016 Hypertension Medication: Yes (HCTZ, Losartan) Home Meds Incl Beta Milo: No Reported Medications Losartan Potassium 50 Mg [id number] Mg PO DAILY 09/08/16 Hydrochlorothiazide 12.5 Mg [id number] Mg PO DAILY 30 Days Ref 0 06/13/16 Aspirin 81 Mg [id number] Mg PO DAILY Ref 0 06/13/16 History History of ENT Problems?: No HEENT History: Denies:: Abnormal Airway Cataracts Difficult Intubation Dysphagia Glaucoma Hearing Problem Sinus Problem TMJ Denture Type: None Teeth Condition: Within Normal Limits Hx of Heart Problems?: Yes Cardiovascular History: Positive for:: Hypertension Denies:: AICD Abdominal Aortic Aneurism Atrial Fibrillation Cardiac Surgery Chest Pain Congestive Heart Failure Coronary Artery Disease Edema Heart Murmur Irregular Heartbeat Pacemaker Peripheral Vascular Rheumatic Fever Thrombophlebitis Valvular Heart Disease Hx of Respiratory Problem?: No Respiratory History: Denies:: Tuberculosis Hx Neurologic Problems?: No Neurological History: Denies:: CVA Hx of GI Problems?: No Hx of Problems?: No Male Hx: Denies:: Prostate Problems Scrotal Mass Testicular Surgery Skin History: Denies:: History Skin Disorders? Pressure Ulcers Hx Musculoskeletal Problems?: Yes Musculoskeletal History: Positive for:: Back Injury (Chronic back pain, very severe lately) Degenerative Joint (Rt knee) Joint Replacement (Left total hip replacement) Osteoarthritis Denies:: Fibromyalgia Musculoskeletal Trauma Myasthenia Gravis Rheumatoid Arthritis Systemic Lupus Hx of Psycho/Social Problems?: No Hx Surgeries?: Yes (Left Hip Total, both shoulders) Hx Any Other Health Problems?: Yes Other History: Positive for:: Cancer (Lymphoma ) Hospitalization Denies:: Endocrine Disease Thyroid Disease History Blood Transfusions: Positive for:: Accept Blood Products? Blood Transfusions Denies:: Blood Transfuse Reaction Hx Diabetes: No Hx Alcohol Use: NoHx Substance Use: No Smoking Status: Never Smoker Stop/Bang Treated for Sleep Apnea?: No Do You Have a CPAP Machine?: No S-Snoring: Do You Snore Loudly: No T-Tired: feel tired, fatigued: No O-Obsered: Observed not breath: No P-Blood Pressure: treated: Yes B- Body Mass Index > 35 kg/m2: No A- Age over 50: Yes N- Neck Large Circumference: Yes G- Gender Male: Yes MARQUES Total Score: 4 MARQUES Risk Assessment: Low Risk, <3 Yes Risk Assessment Category Category 1A: Patient has history of documented sleep apnea, and HAS NOT received any narcotic, sedative or anesthesia administration during this stay. Category 1B: Patient has history of documented sleep apnea, and HAS received any narcotic , sedative or anesthesia administration during this stay Category 2: Patient has SUSPECTED Obstructive Sleep Apnea, and HAS received any narcotic , sedative or anesthesia administration during this stay. Category 3: Patient has SUSPECTED Obstructive Sleep Apnea and HAS NOT received narcotic, sedative or anesthesia administration during this stay. Category 4: Outpatient in Procedural Areas with known sleep apnea or who screen positive for High Risk via the STOP/BANG questionnaire. Exam Exam Vital Signs Vital Signs Date Time Temp Pulse Resp B/P Pulse Ox O2 Delivery O2 Flow Rate FiO2 09/15/16 11:17 36.6 68 17 131/87 99 Room Air General Appearance: Oriented X3 HEENT/AIRWAY: MP 2 Lungs: Normal Air Movement Heart: Regular Rate/Rhythm Meds/Labs/Diagnostics Admission Meds Current Medications Vancomycin/0.9 % Sod Chloride 1000 mg/Premix 200 ml @ 133.333 mls/hr PREOP ONCE IV Last administered on 09/15/16 11:27; Start 09/15/16 at 06:00; Stop at 07:29; Status DC Lactated Ringer's (Lr) 1,000 ml @ 120 mls/hr Q8H20M ONCE IV Last administered on 09/15/16 10:50; Start 09/15/16 at 05:00; Stop 09/15/16 at 13:19 Plan Impression Patient chart reviewed, patient interviewed and anesthestic plan with risks, benefits, and alternatives discussed, and informed consent obtained. ASA Physical Status: ASA2 Mod Systemic Disease Anesthetic Plan: GA, Regional Block Bene/Risks/Altern/Consents: Yes HP Complete Prior to Induction: Yes Bentley Dillon MD Sep 15, 2016 12:06
[2016-09-15] MEDS ORDERED: Lactated Ringer's 1,000 ML IV SCH (12:37)
[2016-09-15] MEDS ORDERED: Lactated Ringer's 500 ML IV PRN (12:37)
[2016-09-15] MEDS ORDERED: Atropine 0.4 mg/mL Inj IVPUSH PRN (12:40)
[2016-09-15] MEDS ORDERED: MetoCLOpramide 5 mg/mL 2 mL Inj IVPUSH PRN ×2 (12:40→16:25)
[2016-09-15] MEDS ORDERED: Ondansetron 2 mg/mL 2 mL Inj IVPUSH PRN ×2 (12:40→16:25)
[2016-09-15] MEDS ORDERED: Labetalol 5 mg/mL 4 mL Inj IV PRN (12:40)
[2016-09-15] MEDS ORDERED: Phenylephrine 10,000 mCg/mL Inj IVPUSH PRN (12:40)
[2016-09-15] MEDS ORDERED: Dexamethasone 4 mg/mL Inj IVPUSH PRN (12:40)
[2016-09-15] MEDS ORDERED: HYDROmorphone 1 mg/mL Inj IVPUSH PRN (12:40)
[2016-09-15] MEDS ORDERED: fentaNYL-PF 50 mCg/mL 2 mL Inj IVPUSH PRN (12:40)
[2016-09-15] MEDS ORDERED: EPHEDrine Sulfate 50 mg/mL Inj IVPUSH PRN (12:40)
[2016-09-15] MEDS ORDERED: Tranexamic Acid 100 mg/mL 10 mL Inj ONE (12:49)
[2016-09-15] MEDS ORDERED: Bupivacaine Liposome 1.3% 20 mL Inj ONE (12:50)
[2016-09-15] MEDS ORDERED: Bupivacaine Liposome 1.3% 20 mL Inj INFILTRATE ONE (13:36)
[2016-09-15] MEDS ORDERED: Gentamicin 40 mg/mL 2 mL Inj IRRIGATION ONE (13:36)
[2016-09-15] MEDS ORDERED: Bupivacaine-MPF 0.5% W/EPI 30 mL Inj INFILTRATE ONE (13:37)
[2016-09-15] MEDS: 0.9% Sodium Chloride 100 ML ONE ×2 (13:53→14:21)
[2016-09-15] MEDS ORDERED: Tranexamic Acid 100 mg/mL 10 mL Inj TOPICAL ONE (14:21)
[2016-09-15 14:52] VITALS: BP 141/87; PULSE 76; RESP 10; O2SAT 93
[2016-09-15 15:00] VITALS: BP 134/84; PULSE 78; RESP 12; O2SAT 95
[2016-09-15 15:30] VITALS: BP 130/80; PULSE 66; RESP 10; O2SAT 98
--- NOTE | 2016-09-15 15:31 | PCM.ANEP1 ---
Post Anesthesia PACU Phase 1 Assessment Date of Service: Sep 15, 2016 Vital Signs Vital Signs Date Time Temp Pulse Resp B/P Pulse Ox O2 Delivery O2 Flow Rate FiO2 09/15/16 15:00 78 12 134/84 95 Nasal Cannula 2 09/15/16 14:52 76 10 141/87 93 Nasal Cannula 2 09/15/16 11:17 36.6 68 17 131/87 99 Room Air Anesthetic Administered: GA Level of Alertness: Sleepy, easy to arouse Pain: No Nausea or Vomiting: No CV Function & Hydration Stable: Yes Airway Device: Oxygen Delivery: Nasal Cannula Lungs: Normal Air Movement PACU Phase 2 Assessment Complications: No Follow up Care: N/A Patient Instructions Provided: N/A Reymundo Riley MD Sep 15, 2016 15:31
--- NOTE | 2016-09-15 15:51 | NUR ---
Arrived on Unit Patient arrived on floor from PACU sleep, in stable condition. VSS. Patient denies pain and slight nausea. 25mg Vistaril, 15mg Toradol, and 10 mg Reglan given. Dressing CDI. HemoVac clamped until 1999. Ice in place. Patient orientated to call light, bed, menu and visiting hours. at bedside. Call light and tray table within reach. Will continue to monitor patient hourly.
[2016-09-15 15:53] VITALS: BP 139/85; PULSE 70; RESP 16; O2SAT 99
[2016-09-15] MEDS ORDERED: Propofol 10,000 mCg/mL 20 mL Inj ONE (16:06)
[2016-09-15] MEDS ORDERED: fentaNYL-PF 50 mCg/mL 2 mL Inj ONE (16:06)
[2016-09-15] MEDS ORDERED: Dexamethasone 4 mg/mL Inj ONE (16:06)
[2016-09-15] MEDS ORDERED: HYDROmorphone 1 mg/mL Inj ONE (16:06)
[2016-09-15] MEDS ORDERED: Ondansetron 2 mg/mL 2 mL Inj ONE (16:06)
[2016-09-15] MEDS ORDERED: Magnesium Hydroxide 10 mL Oral Concentration PO PRN (16:25)
[2016-09-15] MEDS ORDERED: Sodium Biphos-Phos 133 mL Enema RECTAL PRN (16:25)
[2016-09-15] MEDS ORDERED: diphenhydrAMINE 25 mg Capsule PO PRN (16:25)
--- NOTE | 2016-09-15 16:36 | DRSVH ---
PROCEDURE: X-RAY RIGHT KNEE, ONE OR TWO VIEWS ([id number]) INDICATIONS: POST R TKA TECHNIQUE: 2 view(s) of the knee acquired. COMPARISON: None. FINDINGS: Bones: Patient is status post knee joint arthroplasty. Hardware components are in expected position s. Visualized bony structures are intact. Soft tissues: Overlying postoperative changes are noted. IMPRESSION: Right knee arthroplasty with prosthesis in anatomic alignment. Dictated by: Ibeth Michel M.D. on 09/15/2016 at 16:34 Approved by: Ibeth Michel M.D. on 09/15/2016 at 16:34
[2016-09-15] MEDS: hydrOXYzine Pamoate 25 mg Capsule PO PRN (17:44)
[2016-09-15] MEDS ORDERED: Ketorolac 15 mg/mL Inj IVPUSH PRN (18:00)
[2016-09-15] MEDS: Lactated Ringer's 1,000 ML IV SCH (18:14)
[2016-09-15 20:43] VITALS: BP 154/88; PULSE 78; RESP 16; O2SAT 96
[2016-09-15] MEDS ORDERED: CeFAZolin Inj 3 GM in IV Premix IV ONE (21:00)
[2016-09-16] VITALS (7 sets, daily range): BP systolic 115–148; BP diastolic 50–78; PULSE 75–105; RESP 16–20; O2SAT 94–98
[2016-09-16] MEDS ORDERED: Vancomycin 1 Gm/200 mL NS Premix IV ONE
--- NOTE | 2016-09-16 05:00 | NUR ---
Activity/Safety Patient slept through out shift with no c/o of pain . Hemovac unclamped at 1999, minimal sanguinous drainage. Patient A&O able to make needs known. Bed in low position, call light within reach, intentional rounding. Care continues.
[2016-09-16 05:36] LABS: BASOPHILS % (AUTO) 0.1 % (0-3); EOSINOPHILS % (AUTO) 0.1 % (0-5); MONOCYTES % (AUTO) 8.7 % (4-12); Mean Corpuscular Hemoglobin 27.7 pg (27.0-35.0); Mean Corpuscular Volume 83.6 fL (81-100); NEUTROPHILS % (AUTO) 76.8 % (40-74); Platelet Count 201 bil/L (150-400)
[2016-09-16] MEDS: hydrOXYzine Pamoate 25 mg Capsule PO PRN ×3 (07:58→20:24)
[2016-09-16] MEDS: HYDROcodone-APAP 5-325 mg Tablet PO PRN ×3 (07:58→20:25)
--- NOTE | 2016-09-16 08:04 | OP ---
[address] [address] OPERATIVE REPORT PATIENT: ALIREZA BERNABE : 1950 MR#: [id number] ADMIT: 09/15/2016 JOB ID: [id number] DATE OF SURGERY: 09/15/2016 PREOPERATIVE DIAGNOSIS(ES): Severe arthritis, right knee. POSTOPERATIVE DIAGNOSIS(ES): Severe arthritis, right knee. PROCEDURE: Right total knee replacement. SURGEON: José Luis Horn MD. APN: Kayla Campbell PA-C. Mash Processing Operator required due to the complexity of the operation. INDICATIONS: This gentleman has had severe and disabling symptoms associated with the osteoarthritis of the knee. He has failed conservative treatment and elects to proceed with a total knee replacement. He understands and accepts the potential for risks and complications which include but are not limited to infection, thromboembolic, neurovascular events as well as potential for implant failure. Understanding these, he wishes to proceed. DESCRIPTION OF PROCEDURE: The patient was prepped and draped in the usual sterile fashion. An anteromedial approach was made to the knee. The patella was subluxed laterally. The patella was examined as was the trochlear groove and they were pristine with no evidence of degenerative changes. The decision was made not to resurface the patella. Drill holes were placed in the distal femur and a 5 degree valgus distal femoral cut was made. The external rotation tool was utilized and a +2 depth distal femoral cut was made. The femur was sized to an 11 and chamfer block fixed in appropriate position of rotation and chamfer cuts were made. Trial fit excellently and drill holes were made. The extramedullary tibial guide was utilized to make a tibial cut and all bone fragments and meniscal tissue removed. Tibia was sized to a G component fixed in appropriate position and rotation, and drill and punch was utilized. Trial reductions were performed and a 10 mm poly produced excellent flexion, extension, balance, alignment and soft tissue tracking and range of motion. All meniscal tissue and osteophytes were carefully removed from the knee. Pressurized lavage was followed by pressurized cementation. Excess cement removed during the curing process. Final construct was assembled. The tourniquet was let down. Hemostasis was achieved. The deep Hemovac drain was left. Deep closure with #2 Quill deep followed by 2-0 Vicryl, 3-0, and 4-0 intracuticular stitch. Steri-Strips were applied. The patient was returned to the recovery room in stable condition. He tolerated the procedure well. There were no complications.
--- NOTE | 2016-09-16 08:08 | NUR ---
Pain Medication Patient given 1 tab [place] and 25mg Vistaril prior to PT. Patient denies pain and nausea at this time. Patient repositions self for comfort. Call light and tray table within reach. Will continue to monitor patient hourly.
--- NOTE | 2016-09-16 10:01 | PCM.PNORTH ---
Subjective Date of Service: Sep 16, 2016 Visit Information: Reason for Visit Right Knee Arthritis Surgery/Surgery Date R TKA 09/15/16 Post-Op Day # 1 Date of Admission: Sep 15, 2016 at 16:05 Hospital Day # Subjective Patient states he is feeling well today and is having very little discomfort. Patient was symptomatic with PT and so they did not get up and move around but did do exercises in bed and he states those felt fine. Postop General: No Complaints, No Shortness of Breath Pain Management: PO Objective Exam Objective Patient sitting up in bed eating breakfast Vital Signs and I/O Vital Sign - Last Date Time Temp Pulse Resp B/P Pulse Ox O2 Delivery O2 Flow Rate FiO2 09/16/16 08:53 36.7 83 20 115/74 96 Nasal Cannula 2.00 Intake and Output 09/15/16 09/15/16 09/16/16 Cumulative From/Thru 15:00 23:00 07:00 09/08/16 12:09 - 09/16/16 05:25 Intake Total 1150 ml 450 ml 375 ml 1975 ml Output Total 50 ml 0 ml 800 ml 850 ml Balance 1100 ml 450 ml -425 ml 1125 ml Intake Oral 400 ml 375 ml 775 ml IV Total 1150 ml 50 ml 1200 ml Output Urine Total 0 ml 750 ml 750 ml Drainage Total 50 ml 50 ml Estimated Blood Loss 50 ml 50 ml # Bowel Movements 0 0 Lab & Micro Results Laboratory Tests Test 09/16/16 05:00 White Blood Count 9.6th/mm3 (3.8-10.1) Red Blood Count 4.44mil/mm3 (4.40-5.80) Hemoglobin 12.3g/dL (13.8-17.2) Hematocrit 37.1% (41.0-50.0) Mean Corpuscular Volume 83.6fL (81-100) Mean Corpuscular Hemoglobin 27.7pg (27.0-35.0) Mean Corpuscular Hemoglobin Concent 33.2% (32.0-37.0) Red Cell Distribution Width 14.3% (12.3-15.4) Platelet Count 201bil/L (150-400) Neutrophils (%) (Auto) 76.8% (40-74) Lymphocytes (%) (Auto) 14.2% (14-46) Monocytes (%) (Auto) 8.7% (4-12) Eosinophils (%) (Auto) 0.1% (0-5) Basophils (%) (Auto) 0.1% (0-3) Result Diagram: 09/16/16 0500 General Appearance: Alert, Oriented X3, Cooperative, No Acute Distress Extremities: Distal Pulses Palpable, No Compartment Syndrom Noted, Tenderness/ Swelling Noted Postop Sensory Motor: Distal Motor Intact, Movement in Toes, Distal Sensation Intact, NVI Distally SURGICAL WOUND : Wound Location/Description Perioperative dressings clean dry and intact Drain Location Body Site: Knee Wound Drainage Type: Hemovac Activity: Ambulate with PT (WBAT c FWW) Assessment & Plan Impression Postop day #1 right total knee arthroplasty Problems: Plan Weightbearing: Weightbearing as tolerated with a front wheeled walker DVT prophylaxis: Aspirin 81mg BID x 6 weeks Physical therapy for transfers, progressive ambulation, strengthening Wound care: Perioperative dressing will be changed at Island dressing tomorrow. Please put on compression stockings tomorrow. Analgesia: Oral pain management preferred. Discharge plan: Discharge home in 1-2 days. Start outpatient physical therapy next week. Follow-up plan: In 2 weeks at [facility] with HALLIE for wound check and at [address] Horn with x-rays Kayla Campbell PA-C Sep 16, 2016 10:01
[2016-09-16] MEDS: Lactated Ringer's 1,000 ML IV SCH (12:19)
--- NOTE | 2016-09-16 16:00 | NUR ---
Social Work- Initial Assessment/ Readiness for Discharge/Multidisciplinary Rounds Data: See Initial Assessment and Advance Directive Intervention for additional information. Pt discussed in rounds. Pt is POD 1. Pt is not ready for discharge at this time, likely tomorrow. Pt has outpt PT set up already. No SW needs at this time. Pt is a 65 year old admitted 09/15/16 for right TKA per H&P. Pt's insurance is [employer] and [place] [employer]. Pt's PCP is Delta Mitchell MD. Pt's readmit risk score is 1. SW met with pt and at bedside regarding discharge plan, SW role explained. Pt alert and oriented x3. Pt's capacity for self-care assessed. Pt resides in [place] in a home with spouse. Pt is independent with ADLs and self-care. Pt uses a cane DME at baseline but has a walker available for use. Pt drives. Pt has history with RN services, company unknown. Pt has history with [employer] for IV abx. Pt has no DPOA on file and requested DPOA paperwork, SW provided. Pt has scheduled outpt PT services to begin September 30. SW provided Discharge planning Checklist and requested that pt contact CREATIVE RECRUITER if needs identified. SW provided phone number and plan on whiteboard. Pt to discharge home with to transport via POV and outpt PT. No discharge needs. Pt agreeable. SW will continue to follow. Assessment: Pt who is independent and requires outpt PT Plan: Pt to discharge home with to transport via POV and outpt PT. No discharge needs. Pt agreeable. SW will continue to follow. VIRGINIA Goyal Addendum: 09/16/16 at 1603 by VIVIANE PIZARRO Amended: Links added.
--- NOTE | 2016-09-16 17:32 | NUR ---
Bry aguirre regarding HemoVac. Output 175cc in a 12 hour period. Awaiting response. Addendum: 09/16/16 at 1921 by MAYA CAMPO RN HemoVac DC'd itself. Jyoti STERLING aware.
[2016-09-17] MEDS: HYDROcodone-APAP 5-325 mg Tablet PO PRN ×3 (00:26→14:53)
[2016-09-17] MEDS: hydrOXYzine Pamoate 25 mg Capsule PO PRN ×2 (00:26→07:28)
--- NOTE | 2016-09-17 04:09 | NUR ---
Pain Single request for pain this evening, otherwise tolerated well. Sleeping aide required, patient sleeping well at this time. Ambulates independently in room. No c/o pain and or discomfort at this time. Care will continue.
[2016-09-17 05:12] VITALS: BP 154/88; PULSE 77; RESP 18; O2SAT 97
[2016-09-17 08:19] VITALS: BP 92/55
--- NOTE | 2016-09-17 08:19 | NUR ---
Postural Hypotension Pt requesting to get up to chair this morning, dizzy upon standing. BP sitting at bedside was 92/55, after getting in chair BP dropped to 64/48 and pt diaphoretic and pale; with PT and charge nurse, pt returned to bed and placed in Trendelenburg, IVF Bolus of 500cc initiated. BP immediately returned to normal at 112/68.
[2016-09-17 08:21] VITALS: BP 64/48
[2016-09-17] MEDS: Lactated Ringer's 1,000 ML IV SCH ×2 (08:23→23:21)
[2016-09-17 08:25] VITALS: BP 112/68
--- NOTE | 2016-09-17 08:47 | PCM.PNORTH ---
Subjective Date of Service: Sep 17, 2016 Visit Information: Reason for Visit Right Knee Arthritis Surgery/Surgery Date R TKA 09/15/16 Post-Op Day # Date of Admission: Sep 15, 2016 at 16:05 Hospital Day # Subjective Hemovac drain was pulled out yesterday. Patient had an episode of hypotension this morning after sitting up in a chair. Administered bolus of fluid and he reports feeling much better. He ambulated 50' with PT yesterday. He has minimal complaints of pain. He did not perform as well with PT this morning. Postop General: No Complaints, No Shortness of Breath Pain Management: PO Objective Exam Objective Patient is seen sitting up in bed Vital Signs and I/O Vital Sign - Last Date Time Temp Pulse Resp B/P Pulse Ox O2 Delivery O2 Flow Rate FiO2 09/17/16 08:25 112/68 09/17/16 05:12 36.4 77 18 97 Room Air 09/16/16 08:53 2.00 Intake and Output 09/16/16 09/16/16 09/17/16 Cumulative From/Thru 15:00 23:00 07:00 09/08/16 12:09 - 09/17/16 05:11 Intake Total 2471 ml 4446 ml Output Total 1075 ml 1925 ml Balance 1396 ml 2521 ml Intake Oral 1236 ml 2011 ml IV Total 1235 ml 2435 ml Output Urine Total 750 ml 1500 ml Drainage Total 325 ml 375 ml Estimated Blood Loss 50 ml # Bowel Movements 0 0 Result Diagram: 09/16/16 0500 General Appearance: Alert, Oriented X3, Cooperative, No Acute Distress Extremities: Distal Pulses Palpable, No Compartment Syndrom Noted, Thigh & Calf Soft/Nontender Postop Sensory Motor: Distal Motor Intact, Distal Sensation Intact, NVI Distally SURGICAL WOUND : Wound Location/Description Right knee: Surgical dressing is removed. The incision is intact. Steri- Strips are in place. There is minimal serous drainage on the bandage. The wound is cleansed with hydrogen peroxide and an island dressing was applied. Activity: Ambulate with PT (WBAT c FWW) Catheters: None Assessment & Plan Impression POD #2 Right total knee arthroplasty Problems: Plan Weightbearing: Weightbearing as tolerated with a front wheeled walker DVT prophylaxis: Aspirin 81mg BID x 6 weeks Physical therapy for transfers, progressive ambulation, strengthening Patient has been given 500 mL fluid bolus this morning. We will continue IV fluid at 100 mL/h the remainder the morning. Wound care: dressing changed by PA today to an island dressing Please put on compression stockings today Analgesia: Oral pain management preferred. Discharge plan: Discharge home tomorrow . We will continue to monitor blood pressure today. Patient will need to do stairs with PT. The patient has outpatient physical therapy scheduled to start 09/30/2016. With the delay in outpatient physical therapy, Home Health physical therapy is ordered for the next couple of weeks. Follow-up plan: In 2 weeks at [facility] with PA for wound check and at [address] Horn with x-rays Pain Management: [place], Vistaril VTE Prophylaxis: SCDs, Other (Aspirin 81 mg BID) Resuscitation Status: CPR: Attempt Resuscitation [place] HeightsMayela Viramontes PA-C Sep 17, 2016 08:47
[2016-09-17] MEDS ORDERED: 0.9% Sodium Chloride 500 ML IV ONE (10:55)
[2016-09-17] MEDS: 0.9% Sodium Chloride 1,000 ML IV SCH ×2 (11:08→20:55)
[2016-09-17 12:37] VITALS: BP 132/84; PULSE 85; RESP 18
[2016-09-17 13:20] LABS: APPEARANCE,URINE HAZY (CLEAR,HAZY); COLOR,URINE STRAW (YELLOW); OCCULT BLOOD,URINE NEGATIVE (NEGATIVE); UROBILINOGEN,URINE NORMAL (NORMAL)
--- NOTE | 2016-09-17 14:50 | NUR ---
CHOICE LIST PROVIDED. Kenia Lyons MSW
--- NOTE | 2016-09-17 14:55 | NUR ---
Gave access to [facility] for HH PT per TAXATION INSPECTOR and MD orders.
--- NOTE | 2016-09-17 15:20 | NUR ---
Social Work- Readiness for Discharge/ Multidisciplinary Rounds Data: EMR reviewed. Pt is on day 2 of hospitalization for TKA. Pt discussed with Ortho and fashion styling intern. Ortho feels that pt will require HHPT until he is able to do outpt PT on September 30. HHPT orders received. F2F completed. RN ACUTE DIALYSIS met with pt and at bedside regarding discharge plan, HH CHOICE LIST PROVIDED. Pt has no preference and SW referred to rotating calendar for referral. Referral made to [facility] by [facility]. F2F faxed to [facility] and original placed in hard chart. Access given as well. SW to confirm with [facility] of open date and update pt when information is known. Pt to discharge home with to transport via POV, HH PT when confirmed with [facility]. SW will continue to follow. Assessment: Pt for whom HHPT services are medically necessary Plan: SW to confirm with [facility] of open date and update pt when information is known. Pt to discharge home with to transport via POV, HH PT when confirmed with [facility]. SW will continue to follow. VIRGINIA Goyal
[2016-09-17 19:33] VITALS: BP 139/81; PULSE 92; RESP 18; O2SAT 93
[2016-09-18] MEDS: HYDROcodone-APAP 5-325 mg Tablet PO PRN ×3 (02:29→14:59)
--- NOTE | 2016-09-18 03:03 | NUR ---
Insomnia Restoril for insomnia requested at 2315 after patient fell asleep initially and then woke 3 hours later. He would like to rest longer if possible and asked for it, stated that it helped last night. Pain 3-4/10 relieved with ice packs and vicodin.
[2016-09-18 04:30] VITALS: BP 138/83; PULSE 77; RESP 16; O2SAT 95
[2016-09-18] MEDS: 0.9% Sodium Chloride 1,000 ML IV SCH (06:55)
--- NOTE | 2016-09-18 08:48 | PCM.PNORTH ---
Subjective Date of Service: Sep 18, 2016 Visit Information: Reason for Visit Right Knee Arthritis Surgery/Surgery Date R TKA 09/15/16 Post-Op Day # 3 Date of Admission: Sep 15, 2016 at 16:05 Hospital Day # Subjective Patient states he is feeling "right as rain." He states his gets off work at 3pm and he is hoping to get an additional session of PT before he leaves. He denies dizziness or "wooziness" when he is up and about. He states he feels strong and his pain is well controlled. Postop General: No Complaints, No Shortness of Breath Pain Management: PO Objective Exam Objective Patient sitting up in bed eating breakfast Vital Signs and I/O Vital Sign - Last Date Time Temp Pulse Resp B/P Pulse Ox O2 Delivery O2 Flow Rate FiO2 09/18/16 04:30 36.5 77 16 138/83 95 Room Air 09/16/16 08:53 2.00 Intake and Output 09/17/16 09/17/16 09/18/16 Cumulative From/Thru 15:00 23:00 07:00 09/08/16 12:09 - 09/18/16 06:09 Intake Total 900 ml 1800 ml 1060 ml 8206 ml Output Total 650 ml 660 ml 1895 ml 5130 ml Balance 250 ml 1140 ml -835 ml 3076 ml Intake Oral 900 ml 800 ml 1060 ml 4771 ml IV Total 1000 ml 0 ml 3435 ml Output Urine Total 650 ml 660 ml 1895 ml 4705 ml Drainage Total 375 ml Estimated Blood Loss 50 ml # Voids 4 4 # Bowel Movements 0 0 0 Lab & Micro Results Laboratory Tests Test 09/17/16 12:29 Urine Color Straw (YELLOW) Urine Appearance Hazy (CLEAR,HAZY) Urine pH 6.0 (5.0-8.0) Urine Specific [place] 1.025 (1.003-1.035) Urine Protein Negativemg/dL (NEG,TRACE) Urine Glucose (UA) Negativemg/dL (NEGATIVE) Urine Ketones Negativemg/dL (NEGATIVE) Urine Occult Blood Negative (NEGATIVE) Urine Nitrite Negative (NEGATIVE) Urine Bilirubin Negative (NEGATIVE) Urine Urobilinogen Normalmg/dL (NORMAL) Urine Leukocyte Esterase Negative (NEGATIVE) Urine RBC 0-2/hpf (0-2) Urine WBC 0-5/hpf (0-5) Urine Epithelial Cells Occasional/hpf (NONE-MOD) Urine Crystals None seen (NONE SEEN) Urine Bacteria None/hpf (NONE-FEW) Urine Hyaline Casts Occasional/lpf (NONE) Urine Granular Casts None seen (NONE SEEN) Urine Waxy Casts None seen (NONE SEEN) Urine Red Blood Cell Casts None seen (NONE SEEN) Urine White Blood Cell Casts None seen (NONE SEEN) Urine Mucus Present (None Seen) Urine Trichomonas None seen (NONE SEEN) Urine Yeast None (NONE SEEN) Urinalysis Comment None Urine Culture Reflexed Not indicated Result Diagram: 09/16/16 0500 General Appearance: Alert, Oriented X3, Cooperative, No Acute Distress Extremities: Distal Pulses Palpable, Warm, No Compartment Syndrom Noted, Thigh & Calf Soft/Nontender, Tenderness/Swelling Noted (Lower leg swelling appreciated , compartments soft), Cyanotic Postop Sensory Motor: Distal Motor Intact, Movement in Toes, Distal Sensation Intact, NVI Distally SURGICAL WOUND : Wound Location/Description [place] dressing is clean, dry and intact. Activity: Ambulate with PT (WBAT c FWW) Catheters: None Assessment & Plan Impression POD #3 Right total knee arthroplasty Problems: Plan I would like patient to be given thigh high compression stockings prior to discharge. Please put them on the patient BILATERALLY. Weightbearing: Weightbearing as tolerated with a front wheeled walker DVT prophylaxis: Aspirin 81mg BID x 6 weeks Physical therapy for transfers, progressive ambulation, strengthening Wound care: Keep dressing clean and dry. Cover with plastic wrap when showering to avoid getting it wet. Wear compression stockings at all times during the day. Ice and elevate frequently. Analgesia: Percocet 5/325mg, one to two tablets, every 6 hours as needed for pain. Vistaril 25mg as needed for discomfort. Discharge plan: Discharge home today. The patient has outpatient physical therapy scheduled to start 09/30/2016. With the delay in outpatient physical therapy, Home Health physical therapy is ordered for the next couple of weeks. Follow-up plan: In 2 weeks at [facility] with HALLIE for wound check and at [address] Horn with x-rays VTE Prophylaxis: SCDs, Other (Aspirin 81 mg BID) Resuscitation Status: CPR: Attempt Resuscitation Kayla Campbell PA-C Sep 18, 2016 08:48
--- NOTE | 2016-09-18 08:53 | PCM.DIORTH ---
Ortho Discharge Instruction Date of Service: Sep 18, 2016 Dates of Hospitalization Date of Hospital Admission Sep 15, 2016 at 16:05 Providers Admitting Physician: José Luis Horn MD Primary Care Physician: Delta Micthell MD Attending Physician: José Luis Horn MD Activity Discharge Activity-General: Be up and about, Elevate & ice extremity Right Lower Extremity: Weight Bearing as tolerated Discharge Assist Device: Front Wheeled Walker Dressing and Incisional Care Discharge Dressing Care: Keep dressing clean, dry & intact, Allow Steri Stripes to fall off Discharge Hygiene: May shower (with dressings covered with a plastic bag or saran wrap), DO NOT soak incision under water, NO bathtub, hot tub or whirlpool Additional Instructions Discharge Instructions Weightbearing: Weightbearing as tolerated with a front wheeled walker DVT prophylaxis: Aspirin 81mg twice a day x 6 weeks Wound care: Keep dressing clean and dry. Cover with plastic wrap when showering to avoid getting it wet. Wear compression stockings at all times during the day. Ice and elevate frequently. Analgesia: Percocet 5/325mg, one to two tablets, every 6 hours as needed for pain. Vistaril 25mg as needed for discomfort. Discharge plan: Discharge home today. The patient has outpatient physical therapy scheduled to start 09/30/2016. With the delay in outpatient physical therapy, Home Health physical therapy is ordered for the next couple of weeks. Follow-up plan: In 2 weeks at [facility] [place] with HALLIE for wound check and at [address] Horn with x-rays Kayla Campbell PA-C Sep 18, 2016 08:53
[2016-09-18] MEDS ORDERED: OXYC1TAB24 PO (08:58)
[2016-09-18] MEDS ORDERED: HYDR-3797 PO (08:58)
[2016-09-18] MEDS ORDERED: ASPI-973 PO (08:58)
[2016-09-18 09:32] VITALS: BP 149/82; PULSE 87; RESP 20; O2SAT 97
--- NOTE | 2016-09-18 10:38 | PCM.DC.ORT ---
Discharge Summary Date of Service: Sep 18, 2016 Date of Hospital Admission: Sep 15, 2016 at 16:05 Date of Surgery: Sep 15, 2016 Date of Discharge: Sep 18, 2016 Reason for Hospitalization: Right knee osteoarthritis Procedures Performed: Right total knee arthroplasty Hospital Course: The patient was admitted to the hospital on 09/15/2016 and underwent the above procedure. Antibiotic prophylaxis consisting of Ancef and vancomycin. The surgeon was Dr. Horn. Patient tolerated the procedure well and was transferred to recovery room in stable condition. Patient had physical therapy to work on ambulation and transfers. Weightbearing as tolerated with walker. Pain was managed with Dilaudid, Percocet, Vistaril, Toradol. DVT prophylaxis: Aspirin 81 mg twice a day 6 weeks and SCDs. Hospital course was located with orthostatic hypotension that resolved after a bolus. Patient was able to perform adequately enough to be discharged home with HHPT on postop day 3. Follow-up: at [facility] 2 weeks postop for wound check and at [address] Horn with x-ray. Diagnosis at Time of Discharge Status post right total knee arthroplasty Problems: Disposition: Stable, discharged to home with HHPT Discharge Instructions: Weightbearing: Weightbearing as tolerated with a front wheeled walker DVT prophylaxis: Aspirin 81mg twice a day x 6 weeks Wound care: Keep dressing clean and dry. Cover with plastic wrap when showering to avoid getting it wet. Wear compression stockings at all times during the day. Ice and elevate frequently. Analgesia: Percocet 5/325mg, one to two tablets, every 6 hours as needed for pain. Vistaril 25mg as needed for discomfort. Discharge plan: Discharge home today. The patient has outpatient physical therapy scheduled to start 09/30/2016. With the delay in outpatient physical therapy, Home Health physical therapy is ordered for the next couple of weeks. Follow-up plan: In 2 weeks at [facility] with PA for wound check and at [address] Horn with x-rays Aspirin (Aspirin) 81 Mg Tablet 81 MG PO BID Hydrochlorothiazide (Hydrochlorothiazide) 12.5 Mg Tablet 12.5 MG PO DAILY Hydroxyzine Pamoate (HydrOXYzine Pamoate) 25 Mg Capsule 25 MG PO Q6H PRN PRN For Spasm and/or Restlessness Losartan Potassium (Losartan Potassium) 50 Mg Tablet 50 MG PO DAILY oxyCODONE-Acetaminophen 5-325 mg (oxyCODONE-Acetaminophen 5-325 mg) 1 Each Tablet 1 TAB PO Q6H PRN PRN For Pain Kayla Campbell PA-C Sep 18, 2016 10:38
--- NOTE | 2016-09-18 12:34 | NUR ---
Social Work- Discharge/Multidisciplinary Rounds Data: EMR reviewed. Pt is on day 3 of hospitalization for right TKA. Pt discussed in rounds. Pt is medically stable for discharge today. T/C to Ambreen at [facility] regarding referral. Ambreen has F2F and [facility] will open with pt within 48 hours to continue until pt begins outpt PT. Pt updated and agreeable to plan. Pt to discharge home with [facility] PT, to transport via POV. No other needs identified. Assessment: Pt for whom HHPT is medically necessary Plan: Pt to discharge home with [facility] PT, to transport via POV. F2F has been provided. No other needs identified. Kenia Lyons MSW
[2016-09-18 13:16] VITALS: BP 157/78; PULSE 90; RESP 18; O2SAT 94
--- NOTE | 2016-09-18 15:25 | NUR ---
DISCHARGE Patient rated his pain as 1/10 at this time. Tolerating liquids PO and his diet well. Denies nausea. No emesis noted. Denies SOB. Patient has been able to ambulate with SBA and the FWW. PT cleared patient for D/C to home. HHS has been set-up by CM. Voiding without any problems. Dressing is CDI. IV saline lock d/cd. Discharge instructions, care notes and prescription was given to the patient and she verbalized understanding. Discharged to home with his and all his personal belongings. (Copy of D/C is in the chart).
== END 2016-09-18 15:26 | disposition home health service (06) | DRG 470 ==
LOC: SAS 10:25 → OSC 16:05
PROVIDERS: ADMIT Orthopaedic Surgery; ATTEND Orthopaedic Surgery
PROC: 0SRC0J9 Replacement of Right Knee Joint with Synthetic Substitute, Cemented, Open Approach (ICD-10-PCS; principal; 2016-09-16)
DX: M17.11 Unilateral primary osteoarthritis, right knee (principal); Z79.82 Long term (current) use of aspirin